=== PATIENT | male | born 1940 | race Caucasian/White ===

== ENCOUNTER 2016-06-06 11:18 | Outpatient (CLI) | payer MEDICARE, OTHER | END 2016-06-06 11:19 | disposition home or self-care (01) | DX: M50.31 Other cervical disc degeneration, high cervical region (principal); M47.812 Spondylosis without myelopathy or radiculopathy, cervical region ==

== ENCOUNTER 2016-06-19 10:47 | Outpatient (CLI) | payer MEDICARE, OTHER | END 2016-06-19 10:48 | disposition home or self-care (01) | DX: G47.33 Obstructive sleep apnea (adult) (pediatric) (principal) | CPT/HCPCS: 99214; G0463 ==

== ENCOUNTER 2016-12-21 16:26 | Outpatient (CLI) | payer MEDICARE, OTHER ==
--- NOTE | 2016-12-21 17:39 | XRAY Preliminary Report ---
Exam: XR Finger(s) RT IMPRESSION: 1. No fracture. 2. STT joint arthritis. 3. Nonspecific first digit swelling. Swelling centered at the MCP joint and carpometacarpal joint. [facility] SITE ID: [id number]
--- NOTE | 2016-12-21 17:40 | XRAY Preliminary Report ---
Exam: XR Hand 3 View RT IMPRESSION: 1. No fracture. 2. Normal alignment. 3. Right thumb swelling. STT and radiocarpal joint osteoarthritis. [facility] SITE ID: [id number]
--- NOTE | 2016-12-21 17:51 | XRAY Report ---
EXAM: RIGHT FIRST DIGIT RADIOGRAPHY EXAM DATE: 12/21/2016 04:51 p.m. CLINICAL HISTORY: Right thumb swelling. COMPARISON: None. TECHNIQUE: 3 views. FINDINGS: Bones: Normal. No fracture or bone lesion. Joints: No subluxations. Moderate STT joint space narrowing, subchondral sclerosis and osteophytosis. Mild narrowing at the radiocarpal joint. Soft Tissues: Nonspecific soft tissue swelling centered at the first carpometacarpal and first metaca rpophalangeal joint. IMPRESSION: 1. No fracture. 2. STT joint arthritis. 3. Nonspecific first digit swelling. Swelling centered at the MCP joint and carpometacarpal joint. [facility] Referring Provider Line: [phone] SITE ID: [id number]
--- NOTE | 2016-12-21 18:46 | XRAY Report ---
EXAM: RIGHT HAND RADIOGRAPHY EXAM DATE: 12/21/2016 04:51 p.m. CLINICAL HISTORY: Primary osteoarthritis with thumb swelling. COMPARISON: None. TECHNIQUE: 3 views. FINDINGS: Bones: Normal. No fractures or bone lesions. Joints: Moderate STT and mild radiocarpal joint space narrowing, subchondral sclerosis and osteophyto sis. Soft Tissues: Normal. No soft tissue swelling. IMPRESSION: 1. No fracture. 2. Normal alignment. 3. Right thumb swelling. STT and radiocarpal joint osteoarthritis. [facility] Referring Provider Line: [phone] SITE ID: [id number]
== END 2016-12-21 16:27 | disposition home or self-care (01) ==
LOC: DI 16:26
PROVIDERS: ATTEND Specialist
DX: M19.041 Primary osteoarthritis, right hand (principal); M79.89 Other specified soft tissue disorders; M19.031 Primary osteoarthritis, right wrist
CPT/HCPCS: 73140

== ENCOUNTER 2017-03-20 10:59 | Emergency (ER) | payer MEDICARE, OTHER ==
[2017-03-20] MEDS ORDERED: MAG HYDROX/AL HYDROX/SIMETH 30 ML UDC PO STA (11:48)
--- NOTE | 2017-03-20 11:52 | XRAY Preliminary Report ---
Exam: XR CHEST 1 VIEW IMPRESSION: Patchy opacity of the right lower lobe. Correlate clinically for pneumonia. [facility] SITE ID: [id number]
--- NOTE | 2017-03-20 11:55 | XRAY Report ---
EXAM: CHEST RADIOGRAPHY EXAM DATE: 03/20/2017 11:41 AM. CLINICAL HISTORY: Chest pain. COMPARISON: None. TECHNIQUE: 1 view. FINDINGS: Lungs/Pleura: There is patchy opacity of the right lower lobe. No pneumothorax or pleural effusion. Mediastinum: Cardiomegaly and sternotomy are noted. IMPRESSION: Patchy opacity of the right lower lobe. Correlate clinically for pneumonia. [facility] Referring Provider Line: [phone] SITE ID: [id number]
[2017-03-20 12:00] VITALS: BP 137/73
[2017-03-20 12:03] LABS: BILIRUBIN,URINE NEGATIVE (NEGATIVE); GLUCOSE, URINE (UA) NEGATIVE (NEGATIVE); KETONES,URINE (UA) NEGATIVE (NEGATIVE); LEUKOCYTE ESTERASE, URINE NEGATIVE (NEGATIVE); NITRITE,URINE NEGATIVE (NEGATIVE); OCCULT BLOOD,URINE TRACE-INTA (NEGATIVE); PROTEIN,URINE NEGATIVE (NEGATIVE); UROBILINOGEN,URINE 0.2 (NORMAL) E.U./dL (NORMAL)
[2017-03-20 12:04] LABS: CLARITY,URINE CLEAR (CLEAR)
[2017-03-20 12:23] LABS: BASOPHILS # (AUTO) 0.1 10^3/uL (0.0-0.1); BASOPHILS % (AUTO) 1.1 %; EOSINOPHILS # (AUTO) 0.1 10^3/uL (0.0-0.7); EOSINOPHILS % (AUTO) 1.6 %; HGB - HEMOGLOBIN 14.3 g/dL (14.0-18.0); LYMPHOCYTES # (AUTO) 0.9 10^3/uL (1.5-3.5); LYMPHOCYTES % (AUTO) 15.5 %; MEAN CORPUSCULAR HEMOGLOBIN 29.9 pg (27.0-31.0); MEAN CORPUSCULAR HGB CONC 33.8 g/dL (32.0-36.0); MEAN CORPUSCULAR VOLUME 88.5 fL (80.0-94.0); MEAN PLATELET VOLUME 8.2 fL (7.4-11.4); MONOCYTES # (AUTO) 0.5 10^3/uL (0.0-1.0); MONOCYTES % (AUTO) 7.8 %; NEUTROPHILS # (AUTO) 4.4 10^3/uL (1.5-6.6); PLT - PLATELET COUNT 132 10^3/uL (130-450); RED BLOOD COUNT 4.79 10^6/uL (4.70-6.10); RED CELL DISTRIBUTION WIDTH 15.7 % (12.0-15.0)
[2017-03-20 12:36] LABS: ALBUMIN 4.1 g/dL (3.2-5.5); ALBUMIN/GLOBULIN RATIO 1.4 (1.0-2.2); BILIRUBIN,TOTAL 0.9 mg/dL (0.2-1.0); CALCIUM 9.2 mg/dL (8.5-10.3); CREATININE 0.8 mg/dL (0.6-1.2); TOTAL PROTEIN 7.1 g/dL (6.7-8.2)
[2017-03-20] MEDS ORDERED: ASPIRIN CHEW 81 MG TABLET PO STA (12:54)
[2017-03-20] MEDS ORDERED: NITROGLYCERIN SL 0.4 MG TABLET SL STA (12:54)
--- NOTE | 2017-03-20 13:30 | ED Physician Documentation ---
PD HPI CHEST PAIN - Stated complaint Stated Complaint: LIGHTHEAD - Chief complaint Chief Complaint: Cardiac - History obtained from History obtained from: Patient, Family (Spouse) - History of Present Illness Timing - onset: How many hours ago (2) Timing - onset during: Light activity Timing - details: Waxing and waning Quality: Tightness (Slight, mostly in the right lower chest.) Location: Right chest Associated symptoms: Feeling faint / dizzy. No: Shortness of air, Diaphoresis, Nausea, Vomiting Similar symptoms before: Has not had sx before - Additional information Additional information: The patient is a 76-year-old male who reports feeling lightheaded about 2 hours prior to arrival. He had mild tightness in his chest, which he rates at about 3 out of 10 in severity at its worst, and currently about one out of 10. He denies associated shortness of breath, diaphoresis, nausea or vomiting. He reports mild cough, without fever. He reports having palpitations yesterday after drinking regular coffee. He normally drinks decaf, so attributed it to the caffeine. He denies history of similar symptoms in the past. His past medical history is significant for aortic valve replacement with bovine valve. Review of Systems Constitutional: reports: Other (transient lightheadedness). denies: Fever Ears: denies: Tinnitus/ringing Nose: denies: Congestion Throat: denies: Sore throat Cardiac: reports: Chest pain / pressure Respiratory: reports: Cough. denies: Dyspnea GI: denies: Abdominal Pain, Nausea, Vomiting : denies: Dysuria Skin: denies: Rash Musculoskeletal: denies: Back pain, Extremity swelling Neurologic: denies: Focal weakness, Numbness, Headache PD PAST MEDICAL HISTORY - Past Medical History Past Medical History: Yes Cardiovascular: High cholesterol, Valve disorder, Other Endocrine/Autoimmune: Type 2 diabetes Other Past Medical History: Heart Valve replacment - Past Surgical History Past Surgical History: Yes Cardiovascular: Valve replacement - Present Medications Home Medications: Ambulatory Orders Medication Instructions Recorded Confirmed Azithromycin [Zithromax] 250 mg PO DAILY #6 tablet 03/20/17 Finasteride 5 mg PO DAILY 03/20/17 03/20/17 Latanoprost [Xalatan] 1 drops OP DAILY 03/20/17 03/20/17 Metformin HCl 500 mg PO BID 03/20/17 03/20/17 Nystatin/Triamcin 60 gm TP DAILY 03/20/17 03/20/17 [Nystatin-Triamcinolone Ointm] Simvastatin [Zocor] 40 mg PO DAILY 03/20/17 03/20/17 Warfarin Sodium [Coumadin] 10 mg PO DAILY 03/20/17 03/20/17 Zolpidem Tartrate [Ambien] 1 - 2 tab PO DAILY PRN MDD 20 03/20/17 03/20/17 traZODone [Desyrel] 100 mg PO HS 03/20/17 03/20/17 - Allergies Allergies/Adverse Reactions: Allergies Allergy/AdvReac Type Severity Reaction Status Date / Time No Known Drug Allergies Allergy Verified 03/20/17 11:07 - Social History Does the pt smoke?: Yes Smoking Status: Former smoker Does the pt drink ETOH?: Yes ETOH Use: Wine Does the pt have substance abuse?: No - Immunizations Immunizations are current?: Yes - POLST Patient has POLST: Yes PD ED PE NORMAL - Vitals Vital signs reviewed: Yes (hypertensive) - General General: Alert and oriented X 3, Well developed/nourished - HEENT HEENT: Atraumatic, Moist mucous membranes, Pharynx benign - Neck Neck: Supple, no meningeal sign, No adenopathy, No JVD - Cardiac Cardiac: RRR, Other (1/6 systolic murmur.) - Respiratory Respiratory: No respiratory distress, Other (Faint crackles at the right base, without wheezes or rhonchi.) - Abdomen Abdomen: Soft, Non tender - Back Back: No CVA TTP - Derm Derm: No rash - Extremities Extremities: No edema, No calf tenderness / cord - Neuro Neuro: Alert and oriented X 3, No motor deficit, Normal speech Results - Vitals Vitals: Oxygen O2 Source Room air - EKG (time done) 11:16 Rate: Rate (enter#) Rhythm: NSR [place]: LAD Intervals: Prolonged NE QRS: LVH Ischemia: Q waves (inferior leads II, III, aVF, consistent with old inferior [place]. ) Compare to prior EKG: Old EKG unavailable Computer interpretation: Agree with computer - Labs Labs: Laboratory Tests 03/20/17 03/20/17 03/20/17 11:55 12:13 12:13 WBC 6.0 RBC 4.79 Hgb 14.3 Hct 42.4 MCV 88.5 MCH 29.9 MCHC 33.8 RDW 15.7 H Plt Count 132 MPV 8.2 Neut # 4.4 Lymph # 0.9 L [place] # 0.5 Eos # 0.1 Baso # 0.1 Absolute Nucleated RBC 0.00 Nucleated RBC % 0.0 D-Dimer Sodium 137 Potassium 3.8 Chloride 102 Carbon Dioxide 26 Anion Gap 9.0 BUN 14 Creatinine 0.8 Estimated GFR (MDRD) 94 Glucose 118 H Calcium 9.2 Total Bilirubin 0.9 AST 27 ALT 19 Alkaline Phosphatase 71 Troponin I Total Protein 7.1 Albumin 4.1 Globulin 3.0 Albumin/Globulin Ratio 1.4 Lipase 31 Urine Color YELLOW Urine Clarity CLEAR Urine pH 6.0 Ur Specific [place] 1.025 Urine Protein NEGATIVE Urine Glucose (UA) NEGATIVE Urine Ketones NEGATIVE Urine Occult Blood TRACE-INTA Urine Nitrite NEGATIVE Urine Bilirubin NEGATIVE Urine Urobilinogen 0.2 (NORMAL) Ur Leukocyte Esterase NEGATIVE Ur Microscopic Review NOT INDICATED Urine Culture Comments NOT INDICATED 03/20/17 03/20/17 12:13 12:13 WBC RBC Hgb Hct MCV MCH MCHC RDW Plt Count MPV Neut # Lymph # [place] # Eos # Baso # Absolute Nucleated RBC Nucleated RBC % D-Dimer 244.1 Sodium Potassium Chloride Carbon Dioxide Anion Gap BUN Creatinine Estimated GFR (MDRD) Glucose Calcium Total Bilirubin AST ALT Alkaline Phosphatase Troponin I < 0.04 Total Protein Albumin Globulin Albumin/Globulin Ratio Lipase Urine Color Urine Clarity Urine pH Ur Specific [place] Urine Protein Urine Glucose (UA) Urine Ketones Urine Occult Blood Urine Nitrite Urine Bilirubin Urine Urobilinogen Ur Leukocyte Esterase Ur Microscopic Review Urine Culture Comments - Rads (name of study) 1-view CXR Radiology: Prelim report reviewed, EMP read contemporaneously, See rad report ( Patchy opacity of the right lower lobe. Correlate clinically for pneumonia.) PD MEDICAL DECISION MAKING - ED course Complexity details: reviewed results, re-evaluated patient, considered differential, d/w patient, d/w family ED course: The patient's presentation is most consistent with right lower lobe pneumonia. His respiratory rate and pulse oximetry are normal. His presentation does not suggest sepsis. Cardiac etiology was considered, but is unlikely. His electrocardiogram does not reveal ischemic abnormalities, and his troponin level is normal. Pulmonary embolus was considered, but is unlikely with a normal d-dimer, and a therapeutic INR. Treatment in the emergency department included Maalox 30 mL orally. This did not change the patient's symptoms. Sublingual nitroglycerin and 4 baby aspirin were administered, with no change in his symptoms. Following results of the chest x-ray, Zithromax 500 mg administered orally. He is being discharged with a prescription for Zithromax. I discussed with him and his the expected course of illness, antibiotic treatment and outpatient follow-up, as well as potentially worrisome signs or symptoms that should prompt reevaluation in the emergency department. Departure - Departure Disposition: 01 Home, Self Care Clinical Impression: S/P aortic valve replacement Pneumonia Qualifiers: Pneumonia type: due to unspecified organism Laterality: right Lung location: lower lobe of lung Qualified Code(s): J18.1 - Lobar pneumonia, unspecified organism Condition: Stable Instructions: ED Pneumonia Adult Follow-Up: Jose Ng MD [Primary Care Provider] - Prescriptions: Azithromycin [Zithromax] 250 mg PO DAILY #6 tablet Comments: Take Zithromax daily as prescribed. Your normal warfarin dose in half while on the antibiotic medication. You can check your INR to fine tune your warfarin dosing. Follow up with your primary physician within 1 week. Call to schedule appointment. Return to the emergency department if you develop increasing difficulty breathing, increasing chest pain, or otherwise worsening symptoms. Discharge Date/Time: 03/20/17 13:55
[2017-03-20] MEDS ORDERED: AZITHROMYCIN 250 MG TABLET PO STA (13:32)
== END 2017-03-20 13:55 | disposition home or self-care (01) ==
LOC: ED 10:59
DX: J18.9 Pneumonia, unspecified organism (principal); R94.31 Abnormal electrocardiogram [ECG] [EKG]; E11.9 Type 2 diabetes mellitus without complications; E78.00 Pure hypercholesterolemia, unspecified; Z95.2 Presence of prosthetic heart valve; Z79.01 Long term (current) use of anticoagulants; Z79.84 Long term (current) use of oral hypoglycemic drugs; Z87.891 Personal history of nicotine dependence
CPT/HCPCS: 36415; 71010; 80053; 81003; 83690; 84484; 85025; 85379; 93005; 99283; 99284; A9270; 81001; 87086

== ENCOUNTER 2017-04-24 12:26 | Outpatient (CLI) | payer MEDICARE, OTHER ==
--- NOTE | 2017-04-24 14:11 | XRAY Report ---
DATE OF SERVICE: 04/24/2017 TWO VIEW CHEST: 04/24/2017 CLINICAL INDICATION: Pneumonia. COMPARISON: 03/20/2017. FINDINGS: Frontal and lateral views of the chest demonstrate an enlarged cardiac silhouette. Changes of previous cardiac surgery are present. Right basilar airspace disease has increased, and there is new left basilar airspace disease present. No effusion or pneumothorax is seen. IMPRESSION: BIBASILAR INFILTRATES, INCREASED FROM 03/20/2017. TD: 04/24/2017 15:11
== END 2017-04-24 12:27 | disposition home or self-care (01) ==
LOC: DI 12:26
PROVIDERS: ATTEND Family Medicine
DX: R91.8 Other nonspecific abnormal finding of lung field (principal); Z87.01 Personal history of pneumonia (recurrent)
CPT/HCPCS: 71046

== ENCOUNTER 2017-06-06 15:54 | Outpatient (CLI) | payer MEDICARE, OTHER ==
[2017-06-06] MEDS ORDERED: IOPAMIDOL-300 100 ML VIAL ONE (16:22)
[2017-06-06] MEDS ORDERED: IOPAMIDOL-300 100 ML VIAL IVP ONE (16:53)
--- NOTE | 2017-06-06 17:38 | CT Preliminary Report ---
Exam: CT CHEST W/ IMPRESSION: 1. Masslike focus of right lower lobe airspace consolidation with central cavitation concerning for m alignancy. There are 2 additional nodular areas involving the right middle and lower lobes. 2. 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 [facility] The call report notification system was initiated by Dr. Dayne Rodriguez at 17:33 hrs on 06/06/17. The above findings were discussed with Jose Ng by Dr. Dayne Rodriguez at 17:37 hrs on . SITE ID: [id number]
--- NOTE | 2017-06-06 17:51 | CT Report ---
EXAM: CT CHEST EXAM DATE: 06/06/2017 04:48 PM. CLINICAL HISTORY: Persistent cough, shortness of breath. COMPARISONS: None. TECHNIQUE: Routine helical CT imaging was performed through the chest. IV contrast: 80 mL Isovue-370. Reconstructions: Coronal and sagittal. In accordance with CT protocol optimization, one or more of the following dose reduction techniques w ere utilized for this exam: automated exposure control, adjustment of mA and/or KV based on patient s ize, or use of iterative reconstructive technique. FINDINGS: Lungs/Pleura: There is a 4.5 x 3.3 cm masslike focus of posterior right lower lobe airspace consolida tion with irregular margins. There is swirling of the surrounding parenchymal vessels as can be seen with rounded atelectasis; however, central cavitation is atypical. There is also a second nodular foc us of airspace disease medially in the right lower lobe measuring 1.7 x 2.8 cm as well as a 1.7 x 1.3 cm right middle lobe, infrahilar nodule. The left lung is clear. No pleural effusion or pneumothorax . Mediastinum: No lymphadenopathy. 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 Normal heart size. No alexia cardial effusion. There is aneurysmal dilatation of the ascending thoracic aorta to 5.1 x 5.1 cm. Bones: Unremarkable. Visualized Abdomen: Unremarkable. Other: None. IMPRESSION: 1. Masslike focus of right lower lobe airspace consolidation with central cavitation concerning for m alignancy. There are 2 additional nodular areas involving the right middle and lower lobes. 2. 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 [facility] The call report notification system was initiated by Dr. Dayne Rodriguez at 17:33 hrs on 06/06/17. The above findings were discussed with Jose Ng by Dr. Dayne Rodriguez at 17:37 hrs on . Referring Provider Line: [phone] SITE ID: [id number]
== END 2017-06-06 15:55 | disposition home or self-care (01) ==
LOC: LAB 15:54
PROVIDERS: ATTEND Family Medicine
DX: R91.8 Other nonspecific abnormal finding of lung field (principal); I71.2 Thoracic aortic aneurysm, without rupture; Q24.5 Malformation of coronary vessels
CPT/HCPCS: 36415; 71260; 82565; Q9967

== ENCOUNTER 2017-06-10 15:11 | Outpatient (CLI) | payer MEDICARE, OTHER | END 2017-06-10 15:12 | disposition home or self-care (01) | LOC: SC 15:11 | PROVIDERS: ATTEND Nurse Practitioner Family | DX: G47.33 Obstructive sleep apnea (adult) (pediatric) (principal) | CPT/HCPCS: 99214; G0463; 99212 ==

== ENCOUNTER 2017-07-30 07:03 | Outpatient (CLI) | payer MEDICARE, OTHER ==
[2017-07-30 07:33] LABS: CALCIUM 8.9 mg/dL (8.5-10.3); CREATININE 0.9 mg/dL (0.6-1.2)
--- NOTE | 2017-07-30 14:36 | CT Report ---
CT BRAIN WITH AND WITHOUT CONTRAST: 07/30/2017 CLINICAL INDICATION: Lung cancer staging. TECHNIQUE: Axial CT images of the brain were obtained prior to and following 80 mL Isovue-300 intravenously. COMPARISON: No previous CT is available for comparison. FINDINGS: The ventricles and sulci demonstrate mild symmetric enlargement, compatible with atrophy. The basilar cisterns are patent. There is no evidence of hemorrhage, mass effect, or midline shift. No abnormal enhancement is appreciated following contrast administration. The visualized orbital contents and paranasal sinuses are unremarkable. IMPRESSION: ATROPHY. NO EVIDENCE OF METASTATIC DISEASE. CT DOSE REDUCTION STATEMENT In accordance with CT protocol optimization, one or more of the following dose reduction techniques were utilized for this exam: automated exposure control, adjustment of mA and/or KV based on patient size, or use of iterative reconstructive technique. TD: 07/30/2017 14:34
[2017-07-31] MEDS ORDERED: IOPAMIDOL-300 100 ML VIAL IVP ONE (10:35)
== END 2017-07-30 07:04 | disposition home or self-care (01) ==
LOC: LAB 07:03 → DI 07:04
PROVIDERS: ATTEND Surgery
DX: C34.31 Malignant neoplasm of lower lobe, right bronchus or lung (principal)
CPT/HCPCS: 36415; 70470; 80048

== ENCOUNTER 2017-09-12 13:07 | Outpatient (CLI) | payer MEDICARE, OTHER | END 2017-09-12 13:08 | disposition home or self-care (01) | LOC: SC 13:07 | PROVIDERS: ATTEND Nurse Practitioner Family | DX: G47.33 Obstructive sleep apnea (adult) (pediatric) (principal) | CPT/HCPCS: 99214; G0463; 99212 ==

== ENCOUNTER 2017-10-01 11:42 | Outpatient (CLI) | payer MEDICARE, OTHER ==
[2017-10-01 12:30] LABS: BASOPHILS % (AUTO) 0.6 %; EOSINOPHILS # (AUTO) 0.1 10^3/uL (0.0-0.7); EOSINOPHILS % (AUTO) 1.8 %; HGB - HEMOGLOBIN 10.4 g/dL (14.0-18.0); LYMPHOCYTES # (AUTO) 1.5 10^3/uL (1.5-3.5); LYMPHOCYTES % (AUTO) 21.6 %; MEAN CORPUSCULAR HEMOGLOBIN 27.1 pg (27.0-31.0); MEAN CORPUSCULAR HGB CONC 31.9 g/dL (32.0-36.0); MEAN CORPUSCULAR VOLUME 84.9 fL (80.0-94.0); MEAN PLATELET VOLUME 7.3 fL (7.4-11.4); MONOCYTES # (AUTO) 0.7 10^3/uL (0.0-1.0); MONOCYTES % (AUTO) 9.9 %; NEUTROPHILS # (AUTO) 4.6 10^3/uL (1.5-6.6); NEUTROPHILS % (AUTO) 66.1 %; PLT - PLATELET COUNT 221 10^3/uL (130-450); RED BLOOD COUNT 3.84 10^6/uL (4.70-6.10); RED CELL DISTRIBUTION WIDTH 16.7 % (12.0-15.0)
[2017-10-01 12:38] LABS: ALBUMIN 2.9 g/dL (3.2-5.5); ALBUMIN/GLOBULIN RATIO 0.7 (1.0-2.2); BILIRUBIN,TOTAL 0.4 mg/dL (0.2-1.0); CALCIUM 8.7 mg/dL (8.5-10.3); CREATININE 0.8 mg/dL (0.6-1.2); TOTAL PROTEIN 6.9 g/dL (6.7-8.2)
== END 2017-10-01 11:43 | disposition home or self-care (01) ==
LOC: LAB 11:42
PROVIDERS: ATTEND Internal Medicine Hematology & Oncology
DX: C34.31 Malignant neoplasm of lower lobe, right bronchus or lung (principal)
CPT/HCPCS: 36415; 80053; 83735; 85025

== ENCOUNTER 2017-10-08 11:47 | Outpatient (CLI) | payer MEDICARE, OTHER ==
[2017-10-08 12:34] LABS: BASOPHILS # (AUTO) 0.1 10^3/uL (0.0-0.1); BASOPHILS % (AUTO) 1.4 %; EOSINOPHILS # (AUTO) 0.2 10^3/uL (0.0-0.7); EOSINOPHILS % (AUTO) 2.9 %; LYMPHOCYTES # (AUTO) 1.3 10^3/uL (1.5-3.5); LYMPHOCYTES % (AUTO) 24.8 %; MEAN CORPUSCULAR HGB CONC 32.9 g/dL (32.0-36.0); MEAN PLATELET VOLUME 7.3 fL (7.4-11.4); MONOCYTES # (AUTO) 0.1 10^3/uL (0.0-1.0); MONOCYTES % (AUTO) 2.7 %; NEUTROPHILS # (AUTO) 3.7 10^3/uL (1.5-6.6); NEUTROPHILS % (AUTO) 68.2 %; PLT - PLATELET COUNT 190 10^3/uL (130-450); RED BLOOD COUNT 4.07 10^6/uL (4.70-6.10); RED CELL DISTRIBUTION WIDTH 16.7 % (12.0-15.0); WHITE BLOOD COUNT 5.4 x10^3/uL (4.8-10.8)
[2017-10-08 12:47] LABS: ALBUMIN 3.2 g/dL (3.2-5.5); ALBUMIN/GLOBULIN RATIO 0.7 (1.0-2.2); BILIRUBIN,TOTAL 0.9 mg/dL (0.2-1.0); CALCIUM 8.8 mg/dL (8.5-10.3); CREATININE 0.8 mg/dL (0.6-1.2); MAGNESIUM 1.8 mg/dL (1.7-2.8); TOTAL PROTEIN 7.5 g/dL (6.7-8.2)
== END 2017-10-08 11:48 | disposition home or self-care (01) ==
LOC: LAB 11:47
PROVIDERS: ATTEND Internal Medicine Hematology & Oncology
DX: C34.31 Malignant neoplasm of lower lobe, right bronchus or lung (principal)
CPT/HCPCS: 36415; 80053; 83735; 85025

== ENCOUNTER 2017-10-15 13:03 | Outpatient (CLI) | payer MEDICARE, OTHER | END 2017-10-15 13:04 | disposition home or self-care (01) | LOC: SC 13:03 | PROVIDERS: ATTEND Nurse Practitioner Family | DX: G47.33 Obstructive sleep apnea (adult) (pediatric) (principal) | CPT/HCPCS: 99214; G0463; 99212 ==

== ENCOUNTER 2017-10-21 09:28 | Outpatient (CLI) | payer MEDICARE, OTHER ==
[2017-10-21 09:48] LABS: BASOPHILS % (AUTO) 0.2 %; EOSINOPHILS # (AUTO) 0.1 10^3/uL (0.0-0.7); EOSINOPHILS % (AUTO) 2.6 %; HGB - HEMOGLOBIN 9.6 g/dL (14.0-18.0); LYMPHOCYTES # (AUTO) 1.1 10^3/uL (1.5-3.5); LYMPHOCYTES % (AUTO) 38.6 %; MEAN CORPUSCULAR HGB CONC 32.5 g/dL (32.0-36.0); MEAN PLATELET VOLUME 6.6 fL (7.4-11.4); MONOCYTES # (AUTO) 0.6 10^3/uL (0.0-1.0); MONOCYTES % (AUTO) 20.3 %; NEUTROPHILS % (AUTO) 38.3 %; PLT - PLATELET COUNT 189 10^3/uL (130-450); RED BLOOD COUNT 3.55 10^6/uL (4.70-6.10); RED CELL DISTRIBUTION WIDTH 17.5 % (12.0-15.0); WHITE BLOOD COUNT 2.7 x10^3/uL (4.8-10.8)
[2017-10-21 09:59] LABS: ALBUMIN/GLOBULIN RATIO 0.8 (1.0-2.2); BILIRUBIN,TOTAL 0.8 mg/dL (0.2-1.0); CALCIUM 8.6 mg/dL (8.5-10.3); CREATININE 0.7 mg/dL (0.6-1.2); MAGNESIUM 1.9 mg/dL (1.7-2.8)
[2017-10-21 10:40] LABS: PLATELET ESTIMATE, MANUAL NORMAL (130-450,000) (NORMAL); PLATELET MORPHOLOGY NORMAL APPEARANCE (NORMAL)
== END 2017-10-21 09:29 | disposition home or self-care (01) ==
LOC: LAB 09:28
PROVIDERS: ATTEND Internal Medicine Hematology & Oncology
DX: C34.31 Malignant neoplasm of lower lobe, right bronchus or lung (principal)
CPT/HCPCS: 36415; 80053; 83735; 85025

== ENCOUNTER 2017-11-04 15:39 | Emergency (ER) | payer MEDICARE, OTHER ==
[2017-11-04 16:13] LABS: BASOPHILS % (AUTO) 0.1 %; EOSINOPHILS % (AUTO) 0.1 %; HGB - HEMOGLOBIN 9.3 g/dL (14.0-18.0); LYMPHOCYTES % (AUTO) 44.2 %; MEAN CORPUSCULAR HEMOGLOBIN 26.5 pg (27.0-31.0); MEAN CORPUSCULAR HGB CONC 32.7 g/dL (32.0-36.0); MEAN CORPUSCULAR VOLUME 80.9 fL (80.0-94.0); MONOCYTES % (AUTO) 15.4 %; NEUTROPHILS % (AUTO) 40.2 %; PLT - PLATELET COUNT 55 10^3/uL (130-450); RED BLOOD COUNT 3.52 10^6/uL (4.70-6.10); RED CELL DISTRIBUTION WIDTH 18.9 % (12.0-15.0); WHITE BLOOD COUNT 2.9 x10^3/uL (4.8-10.8)
[2017-11-04 16:16] LABS: ABNORMAL LYMPHS % (MANUAL) 0 %; BAND NEUTROPHILS % (MANUAL) 0 %
[2017-11-04 16:25] LABS: ALBUMIN 3.6 g/dL (3.2-5.5); ALBUMIN/GLOBULIN RATIO 0.9 (1.0-2.2); BILIRUBIN,TOTAL 0.6 mg/dL (0.2-1.0); CALCIUM 8.9 mg/dL (8.5-10.3); CREATININE 0.7 mg/dL (0.6-1.2); TOTAL PROTEIN 7.5 g/dL (6.7-8.2)
[2017-11-04 16:29] LABS: DIFFERENTIAL COMMENT MANUAL DIFFERENTIAL; LYMPHOCYTES # (MANUAL) 1.5 10^3/uL (1.5-3.5); LYMPHOCYTES % (MANUAL) 50 %; MONOCYTES # (MANUAL) 0.3 10^3/uL (0.0-1.0); NEUTROPHILS # (MANUAL) 1.1 10^3/uL (1.5-6.6); NEUTROPHILS % (MANUAL) 39 %; PLATELET ESTIMATE, MANUAL DECREASED (<130,000) (NORMAL); PLATELET MORPHOLOGY NORMAL APPEARANCE (NORMAL); RBC MORPHOLOGY (MULTIPLE) 1+ POLYCHROMASIA (NORMAL)
--- NOTE | 2017-11-04 17:48 | ED Physician Documentation ---
History of Present Illness - Stated complaint Stated Complaint: CONSTIPATED - Chief complaint Chief Complaint: Abd Pain - History obtained from History obtained from: Patient, Family - History of Present Illness Timing: How many days ago (5) Pain level max: 0 Pain level now: 0 Improved by: nothing Worsened by: nothing - Additonal information Additional information: Patient states no BM x 5 days. Has a history of chronic constipation. Has taken mag citrate, senna, and other "stool softeners". States took milk of magensia as well. No vomiting. no pain. States unable to urinate today. States this occurs frequently when he is constipated. Review of Systems Ten Systems: 10 systems reviewed and negative Constitutional: denies: Fever, Chills Ears: denies: Ear pain Nose: denies: Rhinorrhea / runny nose, Congestion Throat: denies: Sore throat Cardiac: denies: Chest pain / pressure Respiratory: denies: Cough GI: denies: Vomiting, Diarrhea, Hematemesis, Bloody / black stool : denies: Dysuria Skin: denies: Rash Musculoskeletal: denies: Neck pain, Back pain Neurologic: denies: Headache PD PAST MEDICAL HISTORY - Past Medical History Cardiovascular: High cholesterol, Valve disorder, Other Endocrine/Autoimmune: Type 2 diabetes - Past Surgical History Past Surgical History: Yes Cardiovascular: Valve replacement - Present Medications Home Medications: Ambulatory Orders Medication Instructions Recorded Confirmed Azithromycin [Zithromax] 250 mg PO DAILY #6 tablet 03/20/17 Finasteride 5 mg PO DAILY 03/20/17 03/20/17 Latanoprost [Xalatan] 1 drops OP DAILY 03/20/17 03/20/17 Metformin HCl 500 mg PO BID 03/20/17 03/20/17 Nystatin/Triamcin 60 gm TP DAILY 03/20/17 03/20/17 [Nystatin-Triamcinolone Ointm] Simvastatin [Zocor] 40 mg PO DAILY 03/20/17 03/20/17 Warfarin Sodium [Coumadin] 10 mg PO DAILY 03/20/17 03/20/17 Zolpidem Tartrate [Ambien] 1 - 2 tab PO DAILY PRN MDD 20 03/20/17 03/20/17 traZODone [Desyrel] 100 mg PO HS 03/20/17 03/20/17 methylPREDNISolone 4 mg PO 11/04/17 11/04/17 [Methylprednisolone] - Allergies Allergies/Adverse Reactions: Allergies Allergy/AdvReac Type Severity Reaction Status Date / Time No Known Drug Allergies Allergy Verified 11/04/17 15:46 - Social History Does the pt smoke?: Yes Smoking Status: Former smoker Does the pt drink ETOH?: Yes Does the pt have substance abuse?: No - Immunizations Immunizations are current?: Yes - POLST Patient has POLST: Yes PD ED PE NORMAL - Vitals Vital signs reviewed: Yes - General General: Alert and oriented X 3, No acute distress - HEENT HEENT: PERRL, Moist mucous membranes - Neck Neck: Supple, no meningeal sign - Cardiac Cardiac: RRR, Strong equal pulses - Respiratory Respiratory: No respiratory distress, Clear bilaterally - Abdomen Abdomen: Soft, Non tender, Non distended - Rectal Rectal: Other (Firm stool in rectal vault. Otherwise normal rectal exam) - Back Back: No spinal TTP - Derm Derm: Warm and dry - Extremities Extremities: No edema, No calf tenderness / cord - Neuro Neuro: Alert and oriented X 3 - Psych Psych: Normal mood, Normal affect Results - Vitals Vitals: Oxygen O2 Source Room air - Labs Labs: Microbiology 11/04/17 10:20 Urine Culture - Final Urine,Random Less Than 10,000 COLONIES/ML UROGENITAL ANNA Laboratory Tests 11/04/17 11/04/17 11/04/17 16:05 16:05 19:00 WBC 2.9 L RBC 3.52 L Hgb 9.3 L Hct 28.5 L MCV 80.9 MCH 26.5 L MCHC 32.7 RDW 18.9 H Plt Count 55 L MPV 7.0 L Neut # (Auto) Not Reportable Lymph # (Auto) Not Reportable [place] # (Auto) Not Reportable Eos # (Auto) Not Reportable Baso # (Auto) Not Reportable Absolute Nucleated RBC Not Reportable Total Counted 100 Band Neuts % (Manual) 0 Abnorm Lymph % (Manual) 0 Nucleated RBC % Not Reportable Neutrophils # (Manual) 1.1 L Lymphocytes # (Manual) 1.5 Monocytes # (Manual) 0.3 Eosinophils # (Manual) 0.0 Basophils # (Manual) 0.0 Differential Comment MANUAL DIFFERENTIAL Manual Slide Review Indicated WBC Morphology NORMAL APPEARANCE Platelet Estimate DECREASED (<130,000) Platelet Morphology NORMAL APPEARANCE RBC Morph Micro Appear 1+ POLYCHROMASIA PT INR Sodium 135 Potassium 3.9 Chloride 98 L Carbon Dioxide 28 Anion Gap 9.0 BUN 17 Creatinine 0.7 Estimated GFR (MDRD) 110 Glucose 124 H Calcium 8.9 Total Bilirubin 0.6 AST 27 ALT 22 Alkaline Phosphatase 83 Total Protein 7.5 Albumin 3.6 Globulin 3.9 Albumin/Globulin Ratio 0.9 L Lipase 43 Urine Color YELLOW Urine Clarity CLEAR Urine pH 6.5 Ur Specific [place] 1.015 Urine Protein TRACE Urine Glucose (UA) NEGATIVE Urine Ketones NEGATIVE Urine Occult Blood SMALL H Urine Nitrite NEGATIVE Urine Bilirubin NEGATIVE Urine Urobilinogen 0.2 (NORMAL) Ur Leukocyte Esterase NEGATIVE Urine RBC 6-10 H Urine WBC 0-3 Ur Squamous Epith Cells NONE SEEN Urine Bacteria None Seen Urine Mucus Moderate Strands Ur Microscopic Review INDICATED Urine Culture Comments NOT INDICATED 11/04/17 19:02 WBC RBC Hgb Hct MCV MCH MCHC RDW Plt Count MPV Neut # (Auto) Lymph # (Auto) [place] # (Auto) Eos # (Auto) Baso # (Auto) Absolute Nucleated RBC Total Counted Band Neuts % (Manual) Abnorm Lymph % (Manual) Nucleated RBC % Neutrophils # (Manual) Lymphocytes # (Manual) Monocytes # (Manual) Eosinophils # (Manual) Basophils # (Manual) Differential Comment Manual Slide Review WBC Morphology Platelet Estimate Platelet Morphology RBC Morph Micro Appear PT 28.0 H INR 2.6 H Sodium Potassium Chloride Carbon Dioxide Anion Gap BUN Creatinine Estimated GFR (MDRD) Glucose Calcium Total Bilirubin AST ALT Alkaline Phosphatase Total Protein Albumin Globulin Albumin/Globulin Ratio Lipase Urine Color Urine Clarity Urine pH Ur Specific [place] Urine Protein Urine Glucose (UA) Urine Ketones Urine Occult Blood Urine Nitrite Urine Bilirubin Urine Urobilinogen Ur Leukocyte Esterase Urine RBC Urine WBC Ur Squamous Epith Cells Urine Bacteria Urine Mucus Ur Microscopic Review Urine Culture Comments PD MEDICAL DECISION MAKING - ED course Complexity details: reviewed results, re-evaluated patient, considered differential, d/w patient, d/w family ED course: Patient is a 77-year-old male who presents to the emergency department with recurrent constipation. Now unable to urinate. Given several enemas in the emergency department, had a large bowel movement is now urinating without difficulty. We will have him follow-up with his doctor for further care. Abdomen is soft, nontender nondistended on serial exam. Patient and family counseled regarding signs and symptoms for which I believe and urgent re- evaluation would be necessary. Patient with good understanding of and agreement to plan and is comfortable going home at this time This document was made in part using voice recognition software. While efforts are made to proofread this document, sound alike and grammatical errors may occur. - Sepsis Event Vital Signs: Oxygen O2 Source Room air Departure - Departure Disposition: Home, Self Care Clinical Impression: Constipation Qualifiers: Constipation type: unspecified constipation type Qualified Code(s): K59.00 - Constipation, unspecified Condition: Good Instructions: ED Constipation Follow-Up: Jose Ng MD [Primary Care Provider] - Within 1 week Comments: Return if you worsen. Drink plenty of fluids at home. Discharge Date/Time: 11/04/17 20:48
[2017-11-04] MEDS ORDERED: MINERAL OIL ENEMA 133 ML BOTTLE RC STA (18:06)
[2017-11-04] MEDS ORDERED: SOAP SUDS ENEMA 1 EACH RC ONE (18:53)
[2017-11-04 19:20] LABS: INR 2.6 (0.8-1.2)
[2017-11-04 19:21] LABS: BILIRUBIN,URINE NEGATIVE (NEGATIVE); GLUCOSE, URINE (UA) NEGATIVE (NEGATIVE); KETONES,URINE (UA) NEGATIVE (NEGATIVE); LEUKOCYTE ESTERASE, URINE NEGATIVE (NEGATIVE); NITRITE,URINE NEGATIVE (NEGATIVE); OCCULT BLOOD,URINE SMALL (NEGATIVE); PH,URINE 6.5 PH (5.0-7.5); PROTEIN,URINE TRACE mg/dL (NEGATIVE); UROBILINOGEN,URINE 0.2 (NORMAL) E.U./dL (NORMAL)
[2017-11-04 19:23] LABS: CLARITY,URINE CLEAR (CLEAR)
[2017-11-04 19:35] LABS: BACTERIA,URINE None Seen /HPF (None Seen); MUCUS,URINE Moderate Strands; SQUAMOUS EPITHELIAL CELL,UR NONE SEEN (<= Few)
[2017-11-04] MEDS ORDERED: SALINE ENEMA 133 ML BOTTLE RC STA ×2 (19:44→20:16)
[2017-11-04 20:48] VITALS: BP 132/72
== END 2017-11-04 20:48 | disposition home or self-care (01) ==
LOC: ED 15:39
DX: K59.00 Constipation, unspecified (principal); E11.9 Type 2 diabetes mellitus without complications; Z79.84 Long term (current) use of oral hypoglycemic drugs; Z87.891 Personal history of nicotine dependence
CPT/HCPCS: 36415; 80053; 81001; 83690; 85025; 85610; 87086; 99283; 99284; A9270; 81003

== ENCOUNTER 2017-11-11 13:15 | Outpatient (CLI) | payer MEDICARE, OTHER ==
[2017-11-11 13:35] LABS: BASOPHILS % (AUTO) 0.1 %; EOSINOPHILS % (AUTO) 0.9 %; HGB - HEMOGLOBIN 8.4 g/dL (14.0-18.0); LYMPHOCYTES # (AUTO) 1.1 10^3/uL (1.5-3.5); LYMPHOCYTES % (AUTO) 35.4 %; MEAN CORPUSCULAR HEMOGLOBIN 27.1 pg (27.0-31.0); MEAN CORPUSCULAR HGB CONC 33.6 g/dL (32.0-36.0); MEAN CORPUSCULAR VOLUME 80.7 fL (80.0-94.0); MEAN PLATELET VOLUME 6.5 fL (7.4-11.4); MONOCYTES # (AUTO) 0.8 10^3/uL (0.0-1.0); MONOCYTES % (AUTO) 26.2 %; NEUTROPHILS # (AUTO) 1.2 10^3/uL (1.5-6.6); NEUTROPHILS % (AUTO) 37.4 %; PLT - PLATELET COUNT 96 10^3/uL (130-450); RED BLOOD COUNT 3.11 10^6/uL (4.70-6.10); RED CELL DISTRIBUTION WIDTH 19.2 % (12.0-15.0); WHITE BLOOD COUNT 3.1 x10^3/uL (4.8-10.8)
[2017-11-11 13:46] LABS: ALBUMIN 3.2 g/dL (3.2-5.5); ALBUMIN/GLOBULIN RATIO 0.8 (1.0-2.2); BILIRUBIN,TOTAL 0.5 mg/dL (0.2-1.0); CALCIUM 8.6 mg/dL (8.5-10.3); CREATININE 0.9 mg/dL (0.6-1.2)
== END 2017-11-11 13:16 | disposition home or self-care (01) ==
LOC: LAB 13:15
PROVIDERS: ATTEND Internal Medicine Hematology & Oncology
DX: C34.31 Malignant neoplasm of lower lobe, right bronchus or lung (principal)
CPT/HCPCS: 36415; 80053; 85025

== ENCOUNTER 2017-12-02 12:48 | Outpatient (CLI) | payer MEDICARE, OTHER ==
[2017-12-02 13:15] LABS: ALBUMIN 3.4 g/dL (3.2-5.5); ALBUMIN/GLOBULIN RATIO 0.9 (1.0-2.2); BILIRUBIN,TOTAL 0.4 mg/dL (0.2-1.0); CALCIUM 8.8 mg/dL (8.5-10.3); CREATININE 0.8 mg/dL (0.6-1.2); MAGNESIUM 1.7 mg/dL (1.7-2.8)
[2017-12-02 13:20] LABS: BASOPHILS % (AUTO) 0.2 %; EOSINOPHILS % (AUTO) 0.8 %; HGB - HEMOGLOBIN 8.7 g/dL (14.0-18.0); LYMPHOCYTES # (AUTO) 0.9 10^3/uL (1.5-3.5); LYMPHOCYTES % (AUTO) 29.6 %; MEAN CORPUSCULAR HEMOGLOBIN 28.4 pg (27.0-31.0); MEAN CORPUSCULAR HGB CONC 33.7 g/dL (32.0-36.0); MEAN CORPUSCULAR VOLUME 84.3 fL (80.0-94.0); MONOCYTES # (AUTO) 0.6 10^3/uL (0.0-1.0); MONOCYTES % (AUTO) 18.8 %; NEUTROPHILS # (AUTO) 1.6 10^3/uL (1.5-6.6); NEUTROPHILS % (AUTO) 50.6 %; PLT - PLATELET COUNT 85 10^3/uL (130-450); RED BLOOD COUNT 3.06 10^6/uL (4.70-6.10); RED CELL DISTRIBUTION WIDTH 22.9 % (12.0-15.0); WHITE BLOOD COUNT 3.2 x10^3/uL (4.8-10.8)
[2017-12-02 13:44] LABS: PLATELET ESTIMATE, MANUAL DECREASED (<130,000) (NORMAL); PLATELET MORPHOLOGY NORMAL APPEARANCE (NORMAL)
== END 2017-12-02 12:49 | disposition home or self-care (01) ==
LOC: LAB 12:48
PROVIDERS: ATTEND Internal Medicine Hematology & Oncology
DX: C34.31 Malignant neoplasm of lower lobe, right bronchus or lung (principal)
CPT/HCPCS: 36415; 80053; 83735; 85025

== ENCOUNTER 2018-01-27 08:15 | Outpatient (CLI) | payer MEDICARE, OTHER ==
[2018-01-27 08:39] LABS: BASOPHILS % (AUTO) 0.7 %; EOSINOPHILS # (AUTO) 0.1 10^3/uL (0.0-0.7); EOSINOPHILS % (AUTO) 1.8 %; HGB - HEMOGLOBIN 10.1 g/dL (14.0-18.0); LYMPHOCYTES # (AUTO) 1.1 10^3/uL (1.5-3.5); LYMPHOCYTES % (AUTO) 23.2 %; MEAN CORPUSCULAR HEMOGLOBIN 29.9 pg (27.0-31.0); MEAN CORPUSCULAR HGB CONC 33.2 g/dL (32.0-36.0); MEAN CORPUSCULAR VOLUME 89.9 fL (80.0-94.0); MEAN PLATELET VOLUME 6.7 fL (7.4-11.4); MONOCYTES # (AUTO) 0.5 10^3/uL (0.0-1.0); MONOCYTES % (AUTO) 9.8 %; NEUTROPHILS # (AUTO) 3.2 10^3/uL (1.5-6.6); NEUTROPHILS % (AUTO) 64.5 %; PLT - PLATELET COUNT 138 10^3/uL (130-450); RED BLOOD COUNT 3.37 10^6/uL (4.70-6.10); RED CELL DISTRIBUTION WIDTH 19.2 % (12.0-15.0); WHITE BLOOD COUNT 4.9 x10^3/uL (4.8-10.8)
[2018-01-27 08:51] LABS: ALBUMIN 3.3 g/dL (3.2-5.5); ALBUMIN/GLOBULIN RATIO 0.8 (1.0-2.2); BILIRUBIN,TOTAL 0.5 mg/dL (0.2-1.0); CALCIUM 8.9 mg/dL (8.5-10.3); CREATININE 0.7 mg/dL (0.6-1.2); TOTAL PROTEIN 7.3 g/dL (6.7-8.2)
== END 2018-01-27 08:16 | disposition home or self-care (01) ==
LOC: LAB 08:15
PROVIDERS: ATTEND Internal Medicine Hematology & Oncology
DX: C34.31 Malignant neoplasm of lower lobe, right bronchus or lung (principal); K12.31 Oral mucositis (ulcerative) due to antineoplastic therapy; D61.810 Antineoplastic chemotherapy induced pancytopenia; L98.9 Disorder of the skin and subcutaneous tissue, unspecified
CPT/HCPCS: 36415; 80053; 85025

== ENCOUNTER 2018-06-03 19:56 | Outpatient (CLI) | payer MEDICARE, OTHER ==
--- NOTE | 2018-06-03 23:22 | Ultrasound Report ---
Reason: LOCALIZED ENLARGED LYMPH NODES,R SUBMENDIBULUR Procedure Date: 06/03/2018 Accession Number: [id number] / [id number] Procedure: US - Head or Neck Soft Tissue CPT Code: FULL RESULT: EXAM: NECK ULTRASOUND EXAM DATE: 06/03/2018 08:51 PM. CLINICAL HISTORY: LOCALIZED ENLARGED LYMPH NODES,R SUBMENDIBULUR. COMPARISON: HEAD W/WO 07/30/2017 7:46 AM. TECHNIQUE: Real-time sonographic imaging was performed by the steel pourer utilizing color-flow. Multiple customer care representative static images were saved for review. FINDINGS: The right submandibular gland appears unremarkable. Superficial to the right submandibular gland, there is a 1.1 x 0.7 x 0.5 cm circumscribed hypoechoic avascular nodule, correlating with the palpable abnormality. This likely represents a sebaceous cyst, as it abuts the dermis. At the site of palpable abnormality identified by the patient anterior to the right ear, the right parotid gland appears unremarkable. There are two 3 mm hypoechoic foci within the parotid parenchyma, compatible with tiny intraparotid lymph nodes. IMPRESSION: Palpable abnormality in the right submandibular region correlates with a likely sebaceous cyst, measuring 1.1 cm. No evident correlate to the palpable abnormality identified in the right parotid gland. Incidental tiny right intraparotid lymph nodes. [facility]
== END 2018-06-03 19:57 | disposition home or self-care (01) ==
LOC: DI 19:56
PROVIDERS: ATTEND Family Medicine
DX: R22.0 Localized swelling, mass and lump, head (principal)
CPT/HCPCS: 76536

== ENCOUNTER 2018-09-22 11:18 | Outpatient (CLI) | payer MEDICARE, OTHER | END 2018-09-22 11:19 | disposition home or self-care (01) | LOC: SC 11:18 | PROVIDERS: ATTEND Nurse Practitioner Family | DX: G47.33 Obstructive sleep apnea (adult) (pediatric) (principal) | CPT/HCPCS: 99213; G0463; 99212 ==

== ENCOUNTER 2019-10-07 11:12 | Outpatient (CLI) | payer MEDICARE, OTHER ==
--- NOTE | 2019-10-07 12:06 | SLEEP CARE CONSULTATION ---
Information from patient questionnaire entered by Ellie Perea. I have reviewed and concur with the information entered by Ellie Perea. This document represents the service I personally performed and the decisions made by me, Teresa Motley, RN, MSN, [employer]. History of Present Illness Service Date and Time: 10/07/2019 1112 Previous diagnosis: Severe, Obstructive Sleep Apnea-Hypopnea Syndrome AHI: 58.1 (in 2012) Reason for follow up: annual (last seen 2019) Equipment type: CPAP Equipment obtained from: [employer] (getting supplies as needed) Mask style: Full face Backup mask available: Yes (old mask ) Last cushion change: 2 weeks ago Prior sleep studies: Yes Year and Where: 2013 - [facility] Type of Sleep Study: Polysomnography CPAP Compliance Data - Data Reviewed with Patient Average duration of nightly device use: 9.75 Compliance rate %: 94 (180 days) Current pressure setting (cmH2O): 8-10 Humidity settin Average residual AHI: 4.2 Subjective Patient concerns: denies: aerophagia, mask discomfort, air blowing in eyes, mask leak noise, condensation in mask/hose, nasal congestion, dry mouth, nose, throat, epistaxis, other Observed to snore while using device: No Current pressure setting perceived as: comfortable On therapy, patient: reports: sleeping better, awakening more refreshed, being more awake and alert during the day, more rested overall. denies: drowsiness while driving Initial [place] Sleepiness Scale score: 3 (in 2012) Current [place] Sleepiness Scale score: 0 Allergies and Home Medications Known drug allergies: No Home medication list reviewed: No (no changes ) Review of Systems Review of systems same as previous: Yes Physical Exam Blood Pressure: 118/60 Cuff size: regular Heart Rate: 62 O2 Saturation: 98 Height: 6 ft Weight: 236 lb Body Mass Index: 32.0 BMI Classification: Obese Impression and Plan 1. Obstructive Sleep Apnea-Hypopnea Syndrome, severe, with good treatment compliance and good apnea control. On CPAP therapy, the patient has better sleep quality and is more rested overall. Patients time with CPAP is similar to last year of 9.5 hours. He states he rests in bed about an hour in the morning to wait til spouse awakens so not to disturb her sleep. He was advised that if he notices he requires more sleep to follow up for further evaluation with rationale. Currently patients BMI is 32 obesity class . Obesity increases the risk of apnea, CPAP pressure requirements and overall health risks especially cardiovascular and diabetes. Thus patient is advised to lose weight. The patient's CPAP pressure range should accommodate some weight loss. Symptoms to report for additional pressure adjustment discussed. Patient's apnea severity and rationale for treatment to reduce apnea, improve sleep quality and reduce cardiovascular and cerebrovascular events was reviewed. * Continue auto CPAP pressure at 8-10 cmH2O * Notify me if snoring with mask or feeling that the pressure is too much or too little * Attempt to lose weight * Call this office if any problems using CPAP * Return for follow up in 1 year , or sooner if concerns arise Visit Type: In Office Time Spent with Patient (minutes): 20 Provider Statement: I spent 100% of the Face to Face Visit with the patient with greater than 50% spent counseling the patient and coordination of care.
[2019-10-07 12:07] VITALS: BP 118/60
== END 2019-10-07 11:13 | disposition home or self-care (01) ==
LOC: SC 11:12
PROVIDERS: ATTEND Nurse Practitioner Family
DX: G47.33 Obstructive sleep apnea (adult) (pediatric) (principal); E66.9 Obesity, unspecified; Z68.32 Body mass index [BMI] 32.0-32.9, adult
CPT/HCPCS: 99213; G0463; 99212

== ENCOUNTER 2019-12-11 08:59 | Outpatient (CLI) | payer MEDICARE, OTHER ==
[2019-12-11 09:15] LABS: CREATININE 0.8 mg/dL (0.6-1.2)
== END 2019-12-11 09:00 | disposition home or self-care (01) ==
LOC: LAB 08:59
PROVIDERS: ATTEND Internal Medicine Hematology & Oncology
DX: Z85.118 Personal history of other malignant neoplasm of bronchus and lung (principal)
CPT/HCPCS: 36415; 82565

== ENCOUNTER 2020-03-07 10:10 | Emergency (ER) | payer MEDICARE, OTHER ==
--- NOTE | 2020-03-07 10:41 | ED Physician Documentation ---
PD HPI CHEST PAIN - Stated complaint Stated Complaint: SOA/CHEST PX - Chief complaint Chief Complaint: Cardiac - History obtained from History obtained from: Patient - Additional information Additional information: 79-year-old gentleman with history of lung cancer status post right lobectomy, [place] aortic valve on warfarin, checks his own INR is at home, type 2 diabetes on metformin. He had recent Mohs surgery on the left hand. Subsequently got infected and about 6 days ago went to [facility] and was put on Keflex, 500 mg 4 times a day. Since then he has had progressive sharp left-sided chest pain, mild, nonexertional. Rates his as a 1 or a 2. The thing that is most worrisome to him is that he has had progressive shortness of breath with feeling like a rattling in the left lower lung. Mild cough. No fevers. Denies pedal edema or calf pain. Review of Systems Ten Systems: 10 systems reviewed and negative Constitutional: denies: Fever, Fatigue Throat: denies: Dental pain / toothache, Sore throat Cardiac: reports: Chest pain / pressure. denies: Palpitations, Pedal edema, Calf pain Respiratory: reports: Dyspnea, Cough. denies: Hemoptysis, Wheezing PD PAST MEDICAL HISTORY - Past Medical History Cardiovascular: High cholesterol, Valve disorder, Other Endocrine/Autoimmune: Type 2 diabetes - Past Surgical History Past Surgical History: Yes Cardiovascular: Valve replacement - Present Medications Home Medications: Ambulatory Orders Medication Instructions Recorded Confirmed Azithromycin [Zithromax] 250 mg PO DAILY #6 tablet 03/20/17 Finasteride 5 mg PO DAILY 03/20/17 03/20/17 Latanoprost [Xalatan] 1 drops OP DAILY 03/20/17 03/20/17 Metformin HCl 500 mg PO BID 03/20/17 03/20/17 Nystatin/Triamcin 60 gm TP DAILY 03/20/17 03/20/17 [Nystatin-Triamcinolone Ointm] Simvastatin [Zocor] 40 mg PO DAILY 03/20/17 03/20/17 Warfarin Sodium [Coumadin] 10 mg PO DAILY 03/20/17 03/20/17 Zolpidem Tartrate [Ambien] 1 - 2 tab PO DAILY PRN MDD 20 03/20/17 03/20/17 traZODone [Desyrel] 100 mg PO HS 03/20/17 03/20/17 methylPREDNISolone 4 mg PO 11/04/17 11/04/17 [Methylprednisolone] Amoxicillin 1,000 mg PO TID #60 capsule 03/07/20 Azithromycin [Zithromax] 1 tab PO DAILY #6 tablet 03/07/20 - Allergies Allergies/Adverse Reactions: Allergies Allergy/AdvReac Type Severity Reaction Status Date / Time No Known Drug Allergies Allergy Verified 03/07/20 10:23 - Social History Does the pt smoke?: Yes Smoking Status: Former smoker Does the pt drink ETOH?: Yes Does the pt have substance abuse?: No - Immunizations Immunizations are current?: Yes - POLST Patient has POLST: Yes PD ED PE NORMAL - Vitals Vital signs reviewed: Yes - General General: Alert and oriented X 3, No acute distress - HEENT HEENT: PERRL, EOMI - Neck Neck: Supple, no meningeal sign, No bony TTP - Cardiac Cardiac: RRR, Other (Loud metallic S2) - Respiratory Respiratory: No respiratory distress, Clear bilaterally - Abdomen Abdomen: Non tender - Back Back: No CVA TTP, No spinal TTP - Derm Derm: Normal color, Warm and dry - Extremities Extremities: No edema, No calf tenderness / cord - Neuro Neuro: Alert and oriented X 3, Normal speech Results - Vitals Vitals: Vital Signs - 24 hr 03/07/20 03/07/20 03/07/20 10:18 12:22 14:15 Temperature 36.0 C L 37.1 C 37.0 C Heart Rate 76 71 72 Respiratory 15 19 18 Rate Blood Pressure 133/63 H 128/72 129/68 O2 Saturation 96 97 99 Oxygen O2 Source Room air - Labs Labs: Laboratory Tests 03/07/20 03/07/20 03/07/20 10:51 10:51 10:57 WBC RBC Hgb Hct MCV MCH MCHC RDW Plt Count MPV Neut # (Auto) Lymph # (Auto) Ford # (Auto) Eos # (Auto) Baso # (Auto) Absolute Nucleated RBC Nucleated RBC % PT 38.6 H INR 3.7 H Sodium 138 Potassium 4.3 Chloride 102 Carbon Dioxide 25 Anion Gap 11.0 BUN 15 Creatinine 0.9 Estimated GFR (MDRD) 82 L Glucose 135 H Calcium 8.8 Total Bilirubin 0.9 AST 68 H ALT 88 H Alkaline Phosphatase 108 Troponin I High Sens 6.2 B-Natriuretic Peptide Total Protein 7.0 Albumin 3.1 L Globulin 3.9 Albumin/Globulin Ratio 0.8 L Lipase 27 Nasal Adenovirus (PCR) Nasal B. parapertussis DNA (PCR) Nasal Coronavir 229E PCR Nasal Coronavir HKU1 PCR Nasal Coronavir NL63 PCR Nasal Coronavir OC43 PCR Nasal Enterovir/Rhinovir PCR Nasal Influenza B PCR Nasal Influenza A PCR Nasal Parainfluen 1 PCR Nasal Parainfluen 2 PCR Nasal Parainfluen 3 PCR Nasal Parainfluen 4 PCR Nasal RSV (PCR) Nasal B.pertussis DNA PCR Nasal C.pneumoniae (PCR) Dre Human Metapneumo PCR Nasal M.pneumoniae (PCR) Nasal SARS-CoV-2 (PCR) 03/07/20 03/07/20 03/07/20 10:57 13:26 13:48 WBC 6.1 RBC 3.70 L Hgb 10.9 L Hct 34.0 L MCV 91.9 MCH 29.5 MCHC 32.1 RDW 15.5 H Plt Count 159 MPV 9.4 Neut # (Auto) 4.5 Lymph # (Auto) 0.7 L Ford # (Auto) 0.8 Eos # (Auto) 0.1 Baso # (Auto) 0.0 Absolute Nucleated RBC 0.00 Nucleated RBC % 0.0 PT INR Sodium Potassium Chloride Carbon Dioxide Anion Gap BUN Creatinine Estimated GFR (MDRD) Glucose Calcium Total Bilirubin AST ALT Alkaline Phosphatase Troponin I High Sens B-Natriuretic Peptide 179 H Total Protein Albumin Globulin Albumin/Globulin Ratio Lipase Nasal Adenovirus (PCR) NOT DETECTED Nasal B. parapertussis DNA (PCR) NOT DETECTED Nasal Coronavir 229E PCR NOT DETECTED Nasal Coronavir HKU1 PCR NOT DETECTED Nasal Coronavir NL63 PCR NOT DETECTED Nasal Coronavir OC43 PCR NOT DETECTED Nasal Enterovir/Rhinovir PCR NOT DETECTED Nasal Influenza B PCR NOT DETECTED Nasal Influenza A PCR NOT DETECTED Nasal Parainfluen 1 PCR NOT DETECTED Nasal Parainfluen 2 PCR NOT DETECTED Nasal Parainfluen 3 PCR NOT DETECTED Nasal Parainfluen 4 PCR NOT DETECTED Nasal RSV (PCR) NOT DETECTED Nasal B.pertussis DNA PCR NOT DETECTED Nasal C.pneumoniae (PCR) NOT DETECTED Dre Human Metapneumo PCR NOT DETECTED Nasal M.pneumoniae (PCR) NOT DETECTED Nasal SARS-CoV-2 (PCR) NOT DETECTED - Rads (name of study) 1v chest Radiology: EMP read contemporaneously (Bilateral small pleural effusions and congestive changes. Potential left lower lobe infiltrate.) CT of the chest with IV contrast Radiology: EMP read contemporaneously (Postsurgical changes right lung base. Hazy groundglass opacity left lingula concerning for atypical pneumonia versus pneumonitis. Masslike consolidation could be pneumonia, or tumor not excluded, needs follow-up. Concern for pulmonary fibrosis and cardiomegaly with a sending aortic aneurysm) PD MEDICAL DECISION MAKING - ED course ED course: 79-year-old gentleman presents with shortness of breath and feeling like something is wrong with his left lung. He has a history of aortic valve replacement and right lobectomy for lung cancer. His x-ray was concerning for CHF, but this was not consistent with history and physical, and his BNP was at most modestly elevated. 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 And chest CT demonstrating what most likely represents pneumonia of the left lower lobe. Biofire panel was negative (incl neg C-19). Departure - Departure Disposition: 01 Home, Self Care Clinical Impression: Heart valve disease Pneumonia Qualifiers: Pneumonia type: due to unspecified organism Laterality: left Lung location: lower lobe of lung Qualified Code(s): J18.9 - Pneumonia, unspecified organism Condition: Good Record reviewed to determine appropriate education?: Yes Instructions: Pneumonia Dc Prescriptions: Amoxicillin 1,000 mg PO TID #60 capsule Azithromycin [Zithromax] 1 tab PO DAILY #6 tablet Comments: You were seen today for shortness of breath, although the chest x-ray did not demonstrate a pneumonia, the follow-up chest CT did. The radiologist noted that another possibility was a tumor, I think this is unlikely, but you will need follow-up chest CT with your doctor to make sure that everything is cleared up. Coronavirus testing was negative. We did note that your a sending aorta is 5.1 cm. You should follow-up with your income tax administrator for this, they may want to do another open heart surgery at some point, but there is no urgency to that. Return if worsening. You can stop the cephalexin that you are on for the hand infection. Your INR today is high at 3.6. This will likely go higher while on antibiotics. It is likely would need to skip doses of your warfarin. You have the machine at home that you can check it with, on any day that it is higher than 3 you should skip your dose including today. Discharge Date/Time: 03/07/20 15:20
--- NOTE | 2020-03-07 10:44 | XRAY Report ---
PROCEDURE: Chest 1 View X-Ray INDICATIONS: Chest pain TECHNIQUE: One view of the chest was acquired. COMPARISON: 06/06/2017 FINDINGS: Surgical changes and devices: Median sternotomy wires are seen.. Lungs and pleura: Small bilateral pleural effusion is seen with blunting of bilateral costophrenic an gles. Ill-defined airspace opacity in left lower lung field is noted concerning for left lower lobe i nfiltrate/atelectasis. No gross pneumothorax. Pulmonary vascular congestion is seen. Mediastinum: Mediastinal contours appear normal. Heart size is enlarged. Bones and chest wall: No suspicious bony lesions. Overlying soft tissues appear unremarkable. IMPRESSION: Congestive changes and small bilateral pleural effusion. Cannot rule out underlying left lower lobe i nfiltrate. No gross pneumothorax. Reviewed by: Fabio Trent MD on 03/07/2020 10:42 AM [facility] Approved by: Fabio Trent MD on 03/07/2020 10:42 AM PST Station ID: [id number]
[2020-03-07 11:31] LABS: ALBUMIN 3.1 g/dL (3.2-5.5); ALBUMIN/GLOBULIN RATIO 0.8 (1.0-2.2); BILIRUBIN,TOTAL 0.9 mg/dL (0.2-1.0); CALCIUM 8.8 mg/dL (8.5-10.3); CREATININE 0.9 mg/dL (0.6-1.2)
[2020-03-07 11:37] LABS: INR 3.7 (0.8-1.2); PT - PROTHROMBIN TIME 38.6 secs (9.9-12.6)
[2020-03-07] MEDS ORDERED: IOVERSOL 320 100 ML VIAL IVP ONE ×2 (12:30→15:17)
--- NOTE | 2020-03-07 13:02 | CT Report ---
PROCEDURE: CHEST W INDICATIONS: chest pain, dyspnea, H/O Lung CA CONTRAST: IV CONTRAST: Optiray 320 ml: 100 PO CONTRAST: *NO PO CONTRAST TECHNIQUE: After the administration of intravenous contrast, 5 mm thick sections acquired from the pulmonary api xavi to the posterior costophrenic angles. 7 mm thick coronal MIP reformats were acquired. For radia tion dose reduction, the following was used: automated exposure control, adjustment of mA and/or kV according to patient size. COMPARISON: Chest radiograph on the same day. Prior chest CT dated 06/06/2017. FINDINGS: Image quality: Excellent. Lungs and pleura: Compared to previous study, there is suggestion of interval right lower lobectomy w ith resection of previously seen right lower lobe pulmonary lesions. Linear scarring/atelectasis at r ight lung base is seen. Surgical sutures are also noted. There is small to moderate right pleural eff usion and small left pleural effusion. Ill-defined hazy groundglass opacity in posterior aspect of le ft lingular segment and left lower lobe is seen. Masslike consolidation in posterior medial left lowe r lobe extending to left infrahilar region is noted. No gross pneumothorax. Reticular thickening in p eriphery of bilateral lung ramos are seen suggestive of developing interstitial prominent fibrosis. Central and peripheral airways are patent and normal in caliber. Mediastinum: Heart size is enlarged. No pericardial effusion. Median sternotomy wires are noted. N o mediastinal or hilar adenopathy by size criteria. Subcentimeter lymph nodes are seen scattered in m ediastinum. Moderate atherosclerotic calcifications are seen. Ascending thoracic aortic aneurysm gilson ures up to 5 cm in largest AP diameter is seen. The central pulmonary arteries are normal in size. Fl uid distended esophageal lumen is noted. No gross esophageal wall thickening. No hiatal hernia. Bones and chest wall: No suspicious bony lesions. No vertebral body compression fractures. No axil nancy or supraclavicular adenopathy by size criteria. Thyroid gland is within normal limits. Abdomen: Visualized upper abdominal solid organs appear normal. Upper abdominal bowel loops are nor mal in caliber. IMPRESSION: 1. Postsurgical changes at right lung base from resection of previously noted right lower lobe masses . Right greater than left bilateral pleural effusion. No pneumothorax. 2. Hazy groundglass opacity in posterior aspect of left lingular segment and left lower lobe concerni ng for atypical pneumonia versus pneumonitis. Additional masslike consolidation also seen in posterio r medial aspect of left lower lobe extending to left infrahilar region. Finding could represent pneum onic infiltrate. Tumor mass cannot be excluded given patient's history. Follow-up until resolution is recommended. 3. Increased interstitial reticular thickening in peripheral bilateral lung ramos concerning for dev eloping interstitial pulmonary fibrosis. 4. Cardiomegaly. Ascending thoracic aortic aneurysm measures up to 5 cm in largest AP diameter. No ao rtic dissection. 5. No mediastinal or hilar lymphadenopathy by size criteria. Reviewed by: Fabio Trent MD on 03/07/2020 1:00 PM PST Approved by: Fabio Trent MD on 03/07/2020 1:00 PM PST Station ID: [id number]
[2020-03-07 13:35] LABS: BASOPHILS % (AUTO) 0.3 %; EOSINOPHILS # (AUTO) 0.1 10^3/uL (0.0-0.7); EOSINOPHILS % (AUTO) 1.6 %; HGB - HEMOGLOBIN 10.9 g/dL (14.0-18.0); LYMPHOCYTES # (AUTO) 0.7 10^3/uL (1.5-3.5); LYMPHOCYTES % (AUTO) 11.9 %; MEAN CORPUSCULAR HEMOGLOBIN 29.5 pg (27.0-31.0); MEAN CORPUSCULAR HGB CONC 32.1 g/dL (32.0-36.0); MEAN CORPUSCULAR VOLUME 91.9 fL (80.0-94.0); MEAN PLATELET VOLUME 9.4 fL (7.4-11.4); MONOCYTES # (AUTO) 0.8 10^3/uL (0.0-1.0); MONOCYTES % (AUTO) 12.6 %; NEUTROPHILS # (AUTO) 4.5 10^3/uL (1.5-6.6); NEUTROPHILS % (AUTO) 73.1 %; PLT - PLATELET COUNT 159 10^3/uL (130-450); RED CELL DISTRIBUTION WIDTH 15.5 % (12.0-15.0); WHITE BLOOD COUNT 6.1 x10^3/uL (4.8-10.8)
[2020-03-07 14:15] VITALS: BP 129/68
[2020-03-07 14:49] LABS: C. PNEUMONIAE- RESP PCR PANEL NOT DETECTED
== END 2020-03-07 15:20 | disposition home or self-care (01) ==
LOC: ED 10:10
DX: J18.9 Pneumonia, unspecified organism (principal); Z85.118 Personal history of other malignant neoplasm of bronchus and lung; Z79.01 Long term (current) use of anticoagulants; E11.9 Type 2 diabetes mellitus without complications; Z79.84 Long term (current) use of oral hypoglycemic drugs; Z95.2 Presence of prosthetic heart valve; Z87.891 Personal history of nicotine dependence; Z90.2 Acquired absence of lung [part of]; Z20.828 Contact with and (suspected) exposure to other viral communicable diseases; I25.2 Old myocardial infarction
CPT/HCPCS: 36415; 71045; 71260; 80053; 83690; 83880; 84484; 85025; 85610; 87631; 93005; 93306; 99284; Q9967; 0202U

== ENCOUNTER 2020-06-06 14:32 | Emergency (ER) | payer MEDICARE, OTHER ==
--- NOTE | 2020-06-06 14:48 | ED Physician Documentation ---
PD HPI DYSPNEA - Stated complaint Stated Complaint: SOA - Chief complaint Chief Complaint: Resp - History obtained from History obtained from: Patient - History of Present Illness Timing - onset: How many weeks ago (1) Timing - onset during: Light activity Timing - duration: Weeks (1) Timing - details: Gradual onset, Still present (worse most the past couple of days.) Inciting event(s): URI (has had fevers, chills, productive cough for past week.) Improved by: Rest. No: Inhaler/neb (tried his 's inhaler/nebulizer at home.) Associated symptoms: Fever, Cough, Wheezing, Chest pain / discomfort. No: Hemoptysis, Palpitations, Bilateral edema Similar symptoms before: Diagnosis (he says the dyspnea is similar to when he had CHF prior to AVR about 10 years ago.) Recently seen: Emergency Dept (3 months ago in ER with some dyspnea and had CXR and chest CT showing some ground glass areas c/w pneumonia, Chest aortic aneurysm 5 cm, and consolidation left base.) Review of Systems Constitutional: reports: Fever, Chills Nose: denies: Rhinorrhea / runny nose, Congestion Throat: denies: Sore throat Cardiac: reports: Chest pain / pressure (tightness). denies: Palpitations, Pedal edema, Calf pain Respiratory: reports: Dyspnea, Cough. denies: Hemoptysis, Wheezing GI: denies: Nausea, Vomiting, Diarrhea, Bloody / black stool Neurologic: reports: Generalized weakness. denies: Near syncope Immunocompromised: denies: Immunocompromised PD PAST MEDICAL HISTORY - Past Medical History Cardiovascular: High cholesterol, Valve disorder, Other Endocrine/Autoimmune: Type 2 diabetes - Past Surgical History Past Surgical History: Yes Cardiovascular: Valve replacement - Present Medications Home Medications: Ambulatory Orders Medication Instructions Recorded Confirmed Finasteride 5 mg PO DAILY 03/20/17 06/06/20 Latanoprost [Xalatan] 1 drops OP DAILY 03/20/17 06/06/20 Metformin HCl 500 mg PO BID 03/20/17 06/06/20 Nystatin/Triamcin 60 gm TP DAILY 03/20/17 06/06/20 [Nystatin-Triamcinolone Ointm] Simvastatin [Zocor] 40 mg PO DAILY 03/20/17 06/06/20 Warfarin Sodium [Coumadin] 10 mg PO DAILY 03/20/17 06/06/20 Zolpidem Tartrate [Ambien] 1 - 2 tab PO DAILY PRN MDD 20 03/20/17 06/06/20 traZODone [Desyrel] 100 mg PO HS 03/20/17 06/06/20 methylPREDNISolone 4 mg PO DAILY 11/04/17 06/06/20 [Methylprednisolone] Albuterol Sulf [Ventolin Hfa 2 - 3 puffs INH Q4HR PRN #1 inhaler 06/06/20 Inhaler] cefUROXime axetiL [Ceftin] 500 mg PO BID #14 tablet 06/06/20 dexAMETHasone [Decadron] 4 mg PO DAILY #5 tablet 06/06/20 - Allergies Allergies/Adverse Reactions: Allergies Allergy/AdvReac Type Severity Reaction Status Date / Time No Known Drug Allergies Allergy Verified 06/06/20 14:43 - Social History Does the pt smoke?: Yes Smoking Status: Former smoker Does the pt drink ETOH?: Yes Does the pt have substance abuse?: No - Immunizations Immunizations are current?: Yes - POLST Patient has POLST: Yes PD ED PE NORMAL - Vitals Vital signs reviewed: Yes - General General: Alert and oriented X 3, No acute distress (seems okay at rest. Sats are good. HR is under 100 but irregular. ), Well developed/nourished - HEENT HEENT: Pharynx benign - Neck Neck: Supple, no meningeal sign, No adenopathy - Cardiac Cardiac: Other (mechanical valvular heart murmur, mild). No: RRR (irregular but rate 70-80) - Respiratory Respiratory: Other (some mild exp wheezing. No faint crackles. some coarse crackles left base. ) - Abdomen Abdomen: Soft, Non tender - Derm Derm: Normal color, Warm and dry - Extremities Extremities: Normal ROM s pain, No edema, No calf tenderness / cord - Neuro Neuro: Alert and oriented X 3, No motor deficit, Normal speech Results - Vitals Vitals: Vital Signs - 24 hr 06/06/20 06/06/20 06/06/20 14:36 15:00 15:30 Temperature 36 C L Heart Rate 71 84 82 Respiratory 22 30 H 30 H Rate Blood Pressure 143/83 H 115/75 106/68 O2 Saturation 95 96 99 06/06/20 06/06/20 06/06/20 15:43 16:09 16:30 Temperature Heart Rate 85 85 84 Respiratory 13 20 26 H Rate Blood Pressure 101/66 103/56 L O2 Saturation 98 97 06/06/20 06/06/20 17:00 17:30 Temperature Heart Rate 87 87 Respiratory 26 H 26 H Rate Blood Pressure 104/62 109/70 O2 Saturation 98 97 Oxygen O2 Source Room air - EKG (time done) 15:39 Rate: Rate (enter#) (76) Rhythm: Atrial fibrillation [place]: Normal QRS: Normal Ischemia: Normal ST segments. No: ST elevation c/w ischemia, ST depression Compare to prior EKG: Changed from prior EKG (similar morphology to Feb 2020, but was NSR then, and atrial fib now. ) - Labs Labs: Laboratory Tests 06/06/20 06/06/20 06/06/20 15:40 15:40 15:40 WBC 8.5 RBC 4.39 L Hgb 12.1 L Hct 38.3 L MCV 87.2 MCH 27.6 MCHC 31.6 L RDW 14.8 Plt Count 220 MPV 8.9 Neut # (Auto) 6.6 Lymph # (Auto) 0.6 L Day # (Auto) 0.9 Eos # (Auto) 0.4 Baso # (Auto) 0.0 Absolute Nucleated RBC 0.00 Nucleated RBC % 0.0 PT 60.7 H INR 6.1 H* Sodium 135 Potassium 4.6 Chloride 95 L Carbon Dioxide 27 Anion Gap 13.0 BUN 20 Creatinine 1.1 Estimated GFR (MDRD) 65 L Glucose 122 H Calcium 9.0 Total Bilirubin 0.3 AST 32 ALT 56 Alkaline Phosphatase 97 Troponin I High Sens B-Natriuretic Peptide Total Protein 7.3 Albumin 3.1 L Globulin 4.2 Albumin/Globulin Ratio 0.7 L Lipase 23 06/06/20 06/06/20 15:40 15:40 WBC RBC Hgb Hct MCV MCH MCHC RDW Plt Count MPV Neut # (Auto) Lymph # (Auto) Day # (Auto) Eos # (Auto) Baso # (Auto) Absolute Nucleated RBC Nucleated RBC % PT INR Sodium Potassium Chloride Carbon Dioxide Anion Gap BUN Creatinine Estimated GFR (MDRD) Glucose Calcium Total Bilirubin AST ALT Alkaline Phosphatase Troponin I High Sens 19.4 B-Natriuretic Peptide 414 H Total Protein Albumin Globulin Albumin/Globulin Ratio Lipase - Rads (name of study) chest xray Radiology: Prelim report reviewed (left basilar opacity c/w pneumonia. small bibasilar effusions. ), See rad report PD MEDICAL DECISION MAKING - ED course Complexity details: reviewed results, considered differential (has had cough and congestion, dyspnea on exertion. CXR showing left infiltrate. Will treat as pneumonia. Sats and vitals are okay, so no indication for admission. Atrial fib, without history of it, but rate controlled and already anticoagulated. ), d/w patient Departure - Departure Disposition: Home, Self Care Clinical Impression: Supratherapeutic international normalized ratio (INR), residential current use of anticoagulant therapy Dyspnea Qualifiers: Dyspnea type: dyspnea on exertion Qualified Code(s): R06.00 - Dyspnea, unspecified Pneumonia Qualifiers: Pneumonia type: due to unspecified organism Laterality: left Lung location: lower lobe of lung Qualified Code(s): J18.9 - Pneumonia, unspecified organism Condition: Stable Record reviewed to determine appropriate education?: Yes Instructions: ED Pneumonia Adult Follow-Up: Jose A Roth MD [Provider Admit Priv/Credential] - [facility] [Provider Group] Prescriptions: Albuterol Sulf [Ventolin Hfa Inhaler] 2 - 3 puffs INH Q4HR PRN #1 inhaler PRN Reason: Shortness Of Air/Wheezing cefUROXime axetiL [Ceftin] 500 mg PO BID #14 tablet dexAMETHasone [Decadron] 4 mg PO DAILY #5 tablet Comments: Your chest x-ray shows a patch of pneumonia on the lower left. Your symptoms would be consistent with some pneumonia. Your oxygenation is good. Your heart rate is controlled but is in a regular pattern called atrial fibrillation at this time. There is not any significant fluid around the lung. This does not appear to be CHF. Your Coumadin level is above the normal therapeutic level at 6.1. Hold your dose for 2 days and then recheck it on Saturday. If it is down in the correct range, then just resume your Coumadin. If it still elevated then hold it another day and recheck it. Antibiotic twice daily for your pneumonia. Decadron steroid daily for 5 more days for the inflammation of the airways. Use the albuterol 3-4 times a day regularly for the next several days to week. Follow-up with your primary care in the next 2 to 3 days, call for an appointment. Return to the ER if worsening. Discharge Date/Time: 06/06/20 17:50
[2020-06-06] MEDS ORDERED: ALBUTEROL NEB 2.5 MG/3 ML INH STA (15:27)
--- NOTE | 2020-06-06 15:49 | XRAY Report ---
PROCEDURE: Chest 1 View X-Ray INDICATIONS: Chest Pain TECHNIQUE: One view of the chest was acquired. COMPARISON: Chest x-ray 03/07/2020. Chest CT scan 03/07/2020. FINDINGS: Surgical changes and devices: Sternotomy wires. Lungs and pleura: Small bilateral pleural fluid collections. Patchy opacity in the left lung base. Mediastinum: Mediastinal contours appear normal. Heart is enlarged. Bones and chest wall: No suspicious bony lesions. Overlying soft tissues appear unremarkable. IMPRESSION: 1. Small bilateral pleural effusions. 2. Patchy left basilar opacity which could represent atelectasis or pneumonia. Reviewed by: Annemarie Jimenes MD, PhD on 06/06/2020 3:47 PM PDT Approved by: Annemarie Jimenes MD, PhD on 06/06/2020 3:47 PM PDT Station ID: [id number]
[2020-06-06] MEDS ORDERED: DEXAMETHASONE 10 MG/ML VIAL PO STA (15:56)
[2020-06-06] MEDS ORDERED: CHERRY SYRUP 10 ML UDC PO ONE (15:56)
[2020-06-06 15:57] LABS: BASOPHILS % (AUTO) 0.5 %; EOSINOPHILS # (AUTO) 0.4 10^3/uL (0.0-0.7); EOSINOPHILS % (AUTO) 4.6 %; HCT - HEMATOCRIT 38.3 % (42.0-52.0); HGB - HEMOGLOBIN 12.1 g/dL (14.0-18.0); LYMPHOCYTES # (AUTO) 0.6 10^3/uL (1.5-3.5); LYMPHOCYTES % (AUTO) 7.4 %; MEAN CORPUSCULAR HEMOGLOBIN 27.6 pg (27.0-31.0); MEAN CORPUSCULAR HGB CONC 31.6 g/dL (32.0-36.0); MEAN CORPUSCULAR VOLUME 87.2 fL (80.0-94.0); MEAN PLATELET VOLUME 8.9 fL (7.4-11.4); MONOCYTES # (AUTO) 0.9 10^3/uL (0.0-1.0); MONOCYTES % (AUTO) 10.3 %; NEUTROPHILS # (AUTO) 6.6 10^3/uL (1.5-6.6); NEUTROPHILS % (AUTO) 76.8 %; PLT - PLATELET COUNT 220 10^3/uL (130-450); RED BLOOD COUNT 4.39 10^6/uL (4.70-6.10); RED CELL DISTRIBUTION WIDTH 14.8 % (12.0-15.0); WHITE BLOOD COUNT 8.5 x10^3/uL (4.8-10.8)
[2020-06-06 16:09] LABS: PT - PROTHROMBIN TIME 60.7 secs (9.9-12.6)
[2020-06-06 16:13] LABS: ALBUMIN 3.1 g/dL (3.2-5.5); ALBUMIN/GLOBULIN RATIO 0.7 (1.0-2.2); BILIRUBIN,TOTAL 0.3 mg/dL (0.2-1.0); CREATININE 1.1 mg/dL (0.6-1.2); POTASSIUM 4.6 mmol/L (3.5-5.0); TOTAL PROTEIN 7.3 g/dL (6.7-8.2)
[2020-06-06 16:26] LABS: INR 6.1 (0.8-1.2)
[2020-06-06 17:55] VITALS: BP 109/70
== END 2020-06-06 17:50 | disposition home or self-care (01) ==
LOC: ED 14:32
DX: J18.9 Pneumonia, unspecified organism (principal); R06.00 Dyspnea, unspecified; E11.9 Type 2 diabetes mellitus without complications; I48.91 Unspecified atrial fibrillation; Z79.84 Long term (current) use of oral hypoglycemic drugs; Z87.891 Personal history of nicotine dependence
CPT/HCPCS: 36415; 71045; 80053; 83690; 83880; 84484; 85025; 85610; 93005; 94640; 99283; 99284; A9270; U0004

== ENCOUNTER 2020-06-13 13:54 | Inpatient (IN) | payer MEDICARE, OTHER ==
[2020-06-13] MEDS ORDERED: ADENOSINE 6 MG/2 ML VIAL IVP STA (14:19)
[2020-06-13] MEDS ORDERED: SODIUM CHLORIDE 0.9% 1,000 ML IV STA (14:19)
[2020-06-13 14:26] LABS: BASOPHILS % (AUTO) 0.3 %; EOSINOPHILS # (AUTO) 0.5 10^3/uL (0.0-0.7); EOSINOPHILS % (AUTO) 3.3 %; HCT - HEMATOCRIT 46.3 % (42.0-52.0); HGB - HEMOGLOBIN 14.6 g/dL (14.0-18.0); LYMPHOCYTES # (AUTO) 0.8 10^3/uL (1.5-3.5); LYMPHOCYTES % (AUTO) 5.7 %; MEAN CORPUSCULAR HEMOGLOBIN 27.6 pg (27.0-31.0); MEAN CORPUSCULAR HGB CONC 31.5 g/dL (32.0-36.0); MEAN CORPUSCULAR VOLUME 87.5 fL (80.0-94.0); MEAN PLATELET VOLUME 9.2 fL (7.4-11.4); MONOCYTES # (AUTO) 1.3 10^3/uL (0.0-1.0); MONOCYTES % (AUTO) 8.6 %; NEUTROPHILS # (AUTO) 11.9 10^3/uL (1.5-6.6); NEUTROPHILS % (AUTO) 81.4 %; PLT - PLATELET COUNT 296 10^3/uL (130-450); RED BLOOD COUNT 5.29 10^6/uL (4.70-6.10); RED CELL DISTRIBUTION WIDTH 15.2 % (12.0-15.0); WHITE BLOOD COUNT 14.6 x10^3/uL (4.8-10.8)
[2020-06-13] MEDS ORDERED: DILTIAZEM 125 MG in DEXTROSE 5% 100 ML IV STA (14:29)
--- NOTE | 2020-06-13 14:34 | ED Physician Documentation ---
History of Present Illness - Stated complaint Stated Complaint: RAPID HEART RATE - Chief complaint Chief Complaint: Cardiac - History obtained from History obtained from: Patient - History of Present Illness Timing: Today Pain level max: 0 Pain level now: 0 - Additonal information Additional information: 79-year-old male presents to the emergency department with mild shortness of breath over the past few days. He went to his primary care provider today and was found to be tachycardic and in possible SVT, so they sent him here for evaluation. No chest pain. No fever. Occasional cough in the morning. Patient is on warfarin for an artificial heart valve. Review of Systems Ten Systems: 10 systems reviewed and negative Constitutional: denies: Fever, Chills GI: denies: Nausea, Vomiting, Diarrhea Skin: denies: Rash Musculoskeletal: denies: Neck pain, Back pain Neurologic: denies: Headache PD PAST MEDICAL HISTORY - Past Medical History Past Medical History: Yes Cardiovascular: High cholesterol, Valve disorder, Other Endocrine/Autoimmune: Type 2 diabetes - Past Surgical History Past Surgical History: Yes Cardiovascular: Valve replacement - Present Medications Home Medications: Ambulatory Orders Medication Instructions Recorded Confirmed Finasteride 5 mg PO DAILY 03/20/17 06/06/20 Latanoprost [Xalatan] 1 drops OP DAILY 03/20/17 06/06/20 Metformin HCl 500 mg PO BID 03/20/17 06/06/20 Nystatin/Triamcin 60 gm TP DAILY 03/20/17 06/06/20 [Nystatin-Triamcinolone Ointm] Simvastatin [Zocor] 40 mg PO DAILY 03/20/17 06/06/20 Warfarin Sodium [Coumadin] 10 mg PO DAILY 03/20/17 06/06/20 Zolpidem Tartrate [Ambien] 1 - 2 tab PO DAILY PRN MDD 20 03/20/17 06/06/20 traZODone [Desyrel] 100 mg PO HS 03/20/17 06/06/20 methylPREDNISolone 4 mg PO DAILY 11/04/17 06/06/20 [Methylprednisolone] Albuterol Sulf [Ventolin Hfa 2 - 3 puffs INH Q4HR PRN #1 inhaler 06/06/20 Inhaler] cefUROXime axetiL [Ceftin] 500 mg PO BID #14 tablet 06/06/20 dexAMETHasone [Decadron] 4 mg PO DAILY #5 tablet 06/06/20 - Allergies Allergies/Adverse Reactions: Allergies Allergy/AdvReac Type Severity Reaction Status Date / Time No Known Drug Allergies Allergy Verified 06/13/20 13:58 - Social History Does the pt smoke?: Yes Smoking Status: Current every day smoker Does the pt drink ETOH?: Yes Does the pt have substance abuse?: No - Immunizations Immunizations are current?: Yes - POLST Patient has POLST: Yes PD ED PE NORMAL - Vitals Vital signs reviewed: Yes - General General: Alert and oriented X 3, No acute distress, Well developed/nourished - HEENT HEENT: PERRL, Moist mucous membranes - Neck Neck: Supple, no meningeal sign - Cardiac Cardiac: Other (Tachycardic, regular) - Respiratory Respiratory: No respiratory distress, Clear bilaterally - Abdomen Abdomen: Soft, Non tender, Non distended - Derm Derm: Warm and dry - Extremities Extremities: No calf tenderness / cord - Neuro Neuro: Alert and oriented X 3 - Psych Psych: Normal mood, Normal affect Results - Vitals Vitals: Vital Signs - 24 hr 06/13/20 06/13/20 06/13/20 14:01 14:32 15:01 Temperature 36.9 C Heart Rate 150 H 145 H 108 H Respiratory 24 26 H 18 Rate Blood Pressure 124/93 H 119/80 105/64 O2 Saturation 94 100 100 06/13/20 06/13/20 06/13/20 15:30 16:08 16:30 Temperature Heart Rate 96 95 96 Respiratory 18 18 16 Rate Blood Pressure 126/64 122/63 117/64 O2 Saturation 100 98 100 06/13/20 17:00 Temperature Heart Rate 95 Respiratory 16 Rate Blood Pressure 118/59 L O2 Saturation 100 Oxygen O2 Source Nasal cannula - EKG (time done) 1405 Rate: Rate (enter#) (146) Rhythm: SVT [place]: Normal Intervals: Normal DC QRS: Normal Ischemia: Other (rate related changes) - Labs Labs: Laboratory Tests 06/13/20 06/13/20 06/13/20 14:11 14:11 14:11 WBC 14.6 H RBC 5.29 Hgb 14.6 Hct 46.3 MCV 87.5 MCH 27.6 MCHC 31.5 L RDW 15.2 H Plt Count 296 MPV 9.2 Neut # (Auto) 11.9 H Lymph # (Auto) 0.8 L [place] # (Auto) 1.3 H Eos # (Auto) 0.5 Baso # (Auto) 0.0 Absolute Nucleated RBC 0.00 Nucleated RBC % 0.0 PT INR Sodium 136 Potassium 4.7 Chloride 95 L Carbon Dioxide 27 Anion Gap 14.0 H BUN 25 H Creatinine 1.2 Estimated GFR (MDRD) 59 L Glucose 190 H Calcium 9.5 Total Bilirubin 0.6 AST 22 ALT 36 Alkaline Phosphatase 105 Troponin I High Sens 31.4 H* B-Natriuretic Peptide Total Protein 7.7 Albumin 3.4 Globulin 4.3 H Albumin/Globulin Ratio 0.8 L Lipase 25 Nasal Adenovirus (PCR) Nasal B. parapertussis DNA (PCR) Nasal Coronavir 229E PCR Nasal Coronavir HKU1 PCR Nasal Coronavir NL63 PCR Nasal Coronavir OC43 PCR Nasal Enterovir/Rhinovir PCR Nasal Influenza B PCR Nasal Influenza A PCR Nasal Parainfluen 1 PCR Nasal Parainfluen 2 PCR Nasal Parainfluen 3 PCR Nasal Parainfluen 4 PCR Nasal RSV (PCR) Nasal B.pertussis DNA PCR Nasal C.pneumoniae (PCR) Dre Human Metapneumo PCR Nasal M.pneumoniae (PCR) Nasal SARS-CoV-2 (PCR) 06/13/20 06/13/20 06/13/20 14:11 14:11 15:03 WBC RBC Hgb Hct MCV MCH MCHC RDW Plt Count MPV Neut # (Auto) Lymph # (Auto) [place] # (Auto) Eos # (Auto) Baso # (Auto) Absolute Nucleated RBC Nucleated RBC % PT 38.8 H INR 3.8 H Sodium Potassium Chloride Carbon Dioxide Anion Gap BUN Creatinine Estimated GFR (MDRD) Glucose Calcium Total Bilirubin AST ALT Alkaline Phosphatase Troponin I High Sens B-Natriuretic Peptide 388 H Total Protein Albumin Globulin Albumin/Globulin Ratio Lipase Nasal Adenovirus (PCR) NOT DETECTED Nasal B. parapertussis DNA (PCR) NOT DETECTED Nasal Coronavir 229E PCR NOT DETECTED Nasal Coronavir HKU1 PCR NOT DETECTED Nasal Coronavir NL63 PCR NOT DETECTED Nasal Coronavir OC43 PCR NOT DETECTED Nasal Enterovir/Rhinovir PCR NOT DETECTED Nasal Influenza B PCR NOT DETECTED Nasal Influenza A PCR NOT DETECTED Nasal Parainfluen 1 PCR NOT DETECTED Nasal Parainfluen 2 PCR NOT DETECTED Nasal Parainfluen 3 PCR NOT DETECTED Nasal Parainfluen 4 PCR NOT DETECTED Nasal RSV (PCR) NOT DETECTED Nasal B.pertussis DNA PCR NOT DETECTED Nasal C.pneumoniae (PCR) NOT DETECTED Dre Human Metapneumo PCR NOT DETECTED Nasal M.pneumoniae (PCR) NOT DETECTED Nasal SARS-CoV-2 (PCR) NOT DETECTED - Rads (name of study) cxr Radiology: Prelim report reviewed, EMP read contemporaneously, See rad report PD MEDICAL DECISION MAKING - ED course Complexity details: reviewed results, re-evaluated patient, considered differential, d/w patient ED course: Diltiazem drip.Patient was given 6 mg of adenosine for possible SVT, when his heart rate slowed, he was clearly in atrial flutter. Started on a diltiazem drip. His rate was eventually controlled and the drip was stopped. We will admit the patient for further care as this is the first episode. Patient placed in observation with hospitalist, Dr. Butler. This document was made in part using voice recognition software. While efforts are made to proofread this document, sound alike and grammatical errors may occur. Departure - Departure Disposition: ED Place in Observation Clinical Impression: Atrial flutter with rapid ventricular response Condition: Stable Discharge Date/Time: 06/13/20 18:00
--- NOTE | 2020-06-13 14:35 | XRAY Report ---
PROCEDURE: Chest 1 View X-Ray INDICATIONS: Chest Pain TECHNIQUE: One view of the chest was acquired. COMPARISON: 06/06/2020 FINDINGS: Surgical changes and devices: Median sternotomy wires. Lungs and pleura: Small bilateral pleural fluid collections. Left-sided pleural fluid collection is i ncreased slightly in size compared to 06/06/2020. Right-sided pleural fluid collection is unchanged. P atchy opacity in the left lung base compatible compressive atelectasis versus pneumonia. Mediastinum: Mediastinal contours appear normal. Heart size is normal. Bones and chest wall: No suspicious bony lesions. Overlying soft tissues appear unremarkable. IMPRESSION: 1. Left-sided pleural fluid collection slightly increased in size compared to 06/06/2020. 2. Right-sided pleural fluid collection stable compared to prior exam. 3. Patchy opacities in the left lung base and/or compressive atelectasis versus pneumonia. Reviewed by: Annemarie Jimenes MD, PhD on 06/13/2020 2:34 PM PDT Approved by: Annemarie Jimenes MD, PhD on 06/13/2020 2:34 PM PDT Station ID: [id number]
[2020-06-13 14:38] LABS: ALBUMIN 3.4 g/dL (3.2-5.5); ALBUMIN/GLOBULIN RATIO 0.8 (1.0-2.2); BILIRUBIN,TOTAL 0.6 mg/dL (0.2-1.0); CALCIUM 9.5 mg/dL (8.5-10.3); CREATININE 1.2 mg/dL (0.6-1.2); POTASSIUM 4.7 mmol/L (3.5-5.0); TOTAL PROTEIN 7.7 g/dL (6.7-8.2)
[2020-06-13 14:47] LABS: INR 3.8 (0.8-1.2); PT - PROTHROMBIN TIME 38.8 secs (9.9-12.6)
[2020-06-13] MEDS ORDERED: diltiaZEM INJ 5 MG/ML VIAL IVP STA (14:54)
[2020-06-13 16:06] LABS: B. PARAPERTUSSIS- RESP PCR PAN NOT DETECTED; B. PERTUSSIS- RESP PCR PANEL NOT DETECTED; C. PNEUMONIAE- RESP PCR PANEL NOT DETECTED; CORONAVIRUS 229E-RESP PCR NOT DETECTED; CORONAVIRUS HKU1-RESP PCR NOT DETECTED; CORONAVIRUS NL63-RESP PCR NOT DETECTED; CORONAVIRUS OC43-RESP PCR NOT DETECTED; HUMAN METAPNEUMOVIRUS NOT DETECTED; INFLUENZA A- RESP PCR PANEL NOT DETECTED; INFLUENZA B - RESP PCR PANEL NOT DETECTED; M. PNEUMONIAE- RESP PCR PANEL NOT DETECTED; PARAINFLUENZA VIRUS 1 NOT DETECTED; PARAINFLUENZA VIRUS 2 NOT DETECTED; PARAINFLUENZA VIRUS 3 NOT DETECTED; PARAINFLUENZA VIRUS 4 NOT DETECTED; RHINOVIRUS/ENTEROVIRUS NOT DETECTED; RSV- RESP PCR PANEL NOT DETECTED; SARS-CoV-2 -RESP PCR PANEL NOT DETECTED
[2020-06-13] MEDS ORDERED: ONDANSETRON ODT 4 MG TABLET TL PRN (17:08)
[2020-06-13] MEDS: METOPROLOL TARTRATE 50 MG TABLET PO SCH ×3 (18:44→21:17)
[2020-06-13] MEDS: polyethylene glycoL 3350 17 GM PACKET PO SCH (20:21)
--- NOTE | 2020-06-13 20:32 | HISTORY & PHYSICAL EXAMINATION ---
Chief Complaint - Chief Complaint Chief Complaint: Shortness of breath History of Present Illness - Admitted From Admitted From:: Home - History Obtained From Records Reviewed: [facility] History obtained from: Patient and [facility] Exam Limitations: He shortness of breath - History of Present Illness HPI Comment/Other: Mr. Ruiz who is a 79-year-old white male presented to the emergency room in February 2020 with sharp, left-sided chest pain, nonexertional. He was short of breath with this. Owings a rattling in his left lower lung. Did not have any fevers, chills, calf pain. He does have a past medical history of a right lung cancer where he describes the right middle lobe and right lower lobe being involved. He recovered with radiation therapy After a robotic assisted tumor resection at [facility]. He does not describe chemotherapy. He mentions a "spot on the left lung" that was also treated. In the ER he was mildly febrile at 37.1. Heart rate was normal. And he was 99% on room air. CT of the chest showed hazy groundglass opacity left lingula concerning for atypical pneumonia versus pneumonitis. A masslike consolidation could be pneumonia or tumor and would need follow-up. He also had changes of possible pulmonary fibrosis, cardiomegaly, and an ascending aortic aneurysm. He was treated as pneumonia. He saw his primary care provider and a follow-up echocardiogram showed him to have a preserved ejection fraction. 60 to 65%. Grade 1 diastolic dysfunction. A well-seated [place] aortic valve that had been done in 1993. He had a dilated aorta of 5.1 cm. He was treated as pneumonia and sent home. He said that he recovered from that episode of pneumonia and was feeling back to baseline. Baseline for him is taking care of his house, taking care of his . Pain the bills. Driving, cooking. "I do it all". He does not need any durable medical equipment or oxygen. Then in the second week of May he developed recurrence of cough, shortness of breath, chills, fever. It was gradual in onset and got severe enough that he came back to the emergency room June 06. He has been sick for about a week when he was seen. He was mildly tachypneic at 26. He describes that any minimal activity was wiping amount. Just getting up to go to the bathroom required half an hour to an hour of recovery. He could not do anything because of the dyspnea on exertion. Most of the time he was laying down or sitting down because he was so short of breath. He denied pedal edema, chest pain. Mildly hypotensive at 104-109 sytolic. But heart rate was 87 and he was 97 to 98% on room air. Chest x-ray showed small bilateral pleural effusions, patchy left basilar opacity representing atelectasis or pneumonia. He was given Ventolin, Ceftin, and Decadron. His INR was 6.1 on his Coumadin so he was told to hold his Coumadin. For a few days he felt like he was starting to improve and he thought he was back on the mend again. Then he started having a rapid heart rate. He could feel it just racing and it made him short of breath again. No fever, no chills, no cough. No edema in his legs. Mild orthopnea. His chest felt full but without chest pain. He went to see his primary care provider today and he was found to be tachycardic and possible SVT. So he was sent to the emergency room and he came here by private vehicle. Heart rate was 150. He was given adenosine which slowed his heart rate down enough for them to see that he was in atrial flutter. He was then given diltiazem 10 mg IV push, then a diltiazem drip. He responded nicely to that and his heart rate was in the 90s. As such he has been put back on his metoprolol 50 mg p.o. twice daily. Its not on his medication list through the intake form from nursing but he states he does take that on a regular basis. Repeat chest x-ray showed a left-sided pleural effusion that it slightly increased in size. A right-sided pleural effusion that was stable. Patchy opacities in the left lung base and/or compressive atelectasis. Troponin #1 was 31.4. Troponin #2 is 38. BNP is 388. White cell count is 14.6 while on steroids. INR is 3.8 today. Urinalysis does not have an infection. He is Covid negative. We are now placing him in observation to make sure that his heart rate stays controlled. History - Past Medical History Cardiovascular: reports: High cholesterol, Valve disorder (Echocardiogram March 13 with EF 60-65%. Normal aortic valve [place]. Dilated aorta up to 5.5 cm.) Respiratory: reports: Pneumonia, Sleep apnea (sevre w AHI 58.1), CPAP use, Other (Lung cancer right middle lobe and right lower lobe) Neuro: reports: None Endocrine/Autoimmune: reports: Type 2 diabetes : reports: Benign prostate hypertrophy HEENT: reports: Chronic vision loss, Glaucoma Psych: reports: None Musculoskeletal: reports: Osteoarthritis Derm: reports: Other (Skin cancer for which he sees dermatology every 6 months) MRSA Hx?: No - Past Surgical History Cardiovascular: reports: Valve replacement, Lobectomy Derm: reports: Skin cancer surgery - Family & Social History Family History Comment/Other: Dad was 72 years old when he of esophageal cancer. He did not know him very well because he had been from his mother for a very long time. Mom was 88 and after a few days in a [facility] facility due to complications dementia and psychosis. No siblings. 1 son of a heart attack in his 50s. He does have 1 adopted son as well. Living arrangement: At home Living Situation: With spouse/s.o. Social History Notes: He is retired [employer]. 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 doing the same thing. 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 He and his had an RV and they traveled all over the country. They sold that and stayed in their home here on [address]. Unfortunately she was just diagnosed with metastatic breast cancer. She survived lung cancer around the same time he did. Right now they are both trying to get their mind around her diagnosis and what this will mean. He is a former smoker started smoking as a teenager and smoked 3 packs/day and quit in 1984. Has no history of alcohol abuse. Denies any recreational substance abuse. - Substance History Use: Uses substance without health or social issues: NONE Abuse: Recurrent use of substance despite neg consequences: NONE Dependence: Experiences withdrawal or developed tolerances: NONE - POLST Patient has POLST: Yes POLST Status: Full Code Meds/Allgy - Home Medications Home Medications: Ambulatory Orders Medication Instructions Recorded Confirmed Finasteride 5 mg PO DAILY 03/20/17 06/06/20 Latanoprost [Xalatan] 1 drops OP DAILY 03/20/17 06/06/20 Metformin HCl 500 mg PO BID 03/20/17 06/06/20 Nystatin/Triamcin 60 gm TP DAILY 03/20/17 06/06/20 [Nystatin-Triamcinolone Ointm] Simvastatin [Zocor] 40 mg PO DAILY 03/20/17 06/06/20 Warfarin Sodium [Coumadin] 10 mg PO DAILY 03/20/17 06/06/20 Zolpidem Tartrate [Ambien] 1 - 2 tab PO DAILY PRN MDD 20 03/20/17 06/06/20 traZODone [Desyrel] 100 mg PO HS 03/20/17 06/06/20 methylPREDNISolone 4 mg PO DAILY 11/04/17 06/06/20 [Methylprednisolone] Albuterol Sulf [Ventolin Hfa 2 - 3 puffs INH Q4HR PRN #1 inhaler 06/06/20 Inhaler] cefUROXime axetiL [Ceftin] 500 mg PO BID #14 tablet 06/06/20 dexAMETHasone [Decadron] 4 mg PO DAILY #5 tablet 06/06/20 - Allergies Allergies/Adverse Reactions: Allergies Allergy/AdvReac Type Severity Reaction Status Date / Time No Known Drug Allergies Allergy Verified 06/13/20 13:58 Review of Systems - Constitutional Constitutional: reports: Fatigue, Malaise, Weakness, Poor appetite. denies: Diaphoresis, Night sweats - Eyes Eyes: reports: Vision loss (chronic), Corrective lenses - Ears, Nose & Throat Ears, Nose & Throat: denies: Ear pain, Hearing loss, Hearing aids, Nasal discharge, Nosebleeds, Nasal obstruction, Nasal congestion, Postnasal drainage, Sore throat, Hoarseness - Cardiovascular Cariovascular: reports: Irregular heart rate, Palpitations, Exertional dyspnea, Decr. exercise tolerance. denies: Chest pain, Edema, Lightheadedness, Syncope - Respiratory Respiratory: reports: Cough, Sputum production, Wheezing. denies: Snoring - Gastrointestinal Gastrointestinal: reports: Poor appetite. denies: Abdominal pain, Abdominal d istention, Constipation, Diarrhea - Genitourinary Genitourinary: reports: Frequency, Urgency, Nocturia (with decreased stream) - Musculoskeletal Musculoskeletal: reports: Joint pain. denies: Muscle pain, Back pain, Muscle aches, Stiffness - Integumentary Integumentary: reports: Lesions (always). denies: Rash, Pruritis - Neurological Neurological: reports: General weakness. denies: Focal weakness, Headache, Dizziness, Numbness, Memory problems, Pre-existing deficit - Psychiatric Psychiatric: denies: Depression, Anxiety, Suicidal, Delusions, Hallucinations - Endocrine Endocrine: denies: Polyuria, Polydypsia, Polyphagia - Hematologic/Lymphatic Hematologic/Lymphatic: reports: Bruising. denies: Anemia, Petechiae Prior Level of Functionality: Prior to his pneumonia in February he was completely independent with activities of daily living. Was a doting . When he got sick with pneumonia he took a downturn but then recovered. He is back to being winded, unable to take care of himself or his in the last week. Exam - Vital Signs Reviewed Vital Signs: Yes Vital Signs: Vital Signs x48h Temp Pulse Pulse Resp BP BP Pulse Ox 06/13/20 19:07 100 06/13/20 18:44 126/91 H 06/13/20 18:00 36.5 C 109 H 20 112/84 H 100 06/13/20 17:30 96 16 101/63 100 06/13/20 17:00 95 16 118/59 L 100 06/13/20 16:30 96 16 117/64 100 06/13/20 16:08 95 18 122/63 98 06/13/20 15:30 96 18 126/64 100 06/13/20 15:01 108 H 18 105/64 100 06/13/20 14:32 145 H 26 H 119/80 100 06/13/20 14:01 36.9 C 150 H 24 124/93 H 94 - Physical Exam General Appearance: positive: No acute distress, Alert, Other (He was asleep when I walked in, and he allowed me to turn on the lights. Comfortable at rest. When he began speaking and after a few minutes becomes tachypneic with this effort. Recovers if he is at rest and is not speaking.) Eyes Bilateral: positive: PERRL, EOMI ENT: positive: Dry mucous membranes. negative: Pharyngeal erythema Neck: positive: No JVD. negative: Stiff neck, Carotid bruit Respiratory: positive: Rhonchi, Other (Tachypneic with speaking. But no use of accessory muscles, no stridor, states comfortable at about 35 to 40 degrees.) Cardiovascular: positive: Regular rate & rhythm, Systolic murmur. negative: Gallop/S4, Friction rub Peripheral Pulses: positive: 1+ Abdomen: positive: No organomegaly, Nml bowel sounds, No distention, Tenderness Skin: positive: Warm, Dry, Pallor, Other (Multiple AK's and SKs on his face. Looks like he has a large wart on the right medial kneecap.) Extremities: positive: Full ROM, No pedal edema (At all). negative: Lorie's sign/cords Neurologic/Psychiatric: positive: Oriented x3, CN's nml (2-12), Motor nml, Sensation nml. negative: Mood/affect nml (Sad, states he is overwhelmed) Conclusion/Plan - Problem List (1) Atrial flutter with rapid ventricular response Conclusion/Plan: Who has aortic valvular heart disease but her recent echocardiogram shows him to have intact chamber sizes. His aortic valve replacement is well-seated without malfunction. He is not having an [place]. He is adequately anticoagulated with INR is that of been supratherapeutic for over a month and a half so I doubt pulmonary embolism. The only thing I can think of that would be causing it is pleural effusion and irritation from pneumonia. [id number] score is 5 ponts or 7.2% risk. Moderate high risk and should be on anticoagulation which he already is on for AoVR in 1993. INR supratheraputic. Plan: Observation status Resume p.o. metoprolol as fast as possible to control his heart rate. It is 8:47 PM. Last recorded heart rate was at 5:30 PM. It was 96. He is on telemetry and rate is in the 90s. Blood pressure 126/91 and is 100% on room air. I will increase metoprolol from baseline 50 mg bid to 75 mg bid. Already anticoagulated and will resume tomorrow since his INR is 3.8 (2) Recurrent pneumonia Conclusion/Plan: This is a gentleman who has a previous history of right lung cancer and a "spot" on his left lung. He has pleural effusions. Pleural effusions could certainly be due to infection. However he has not had a follow-up CT scan since [facility]'s CT. He is due for a CT in the next month with follow-up with his oncologist at the beginning of July. Plan: Repeat CT of the chest before tomorrow discharge (3) Type 2 diabetes mellitus without complication, without long-term current use of insulin Conclusion/Plan: Hold Metformin while he is here. Sliding scale moderate insulin (4) Full code status Conclusion/Plan: is power of senior trial attorney followed by his son Sadiq and then his [id number] Larissa. DPOA is in his EMR. Advanced directive is also in the EMR. If terminal illness is present, however, DNR. If unconscious on life support, DNR. He wishes to at home. (5) FUAD on CPAP Conclusion/Plan: He is described as severe obstructive sleep apnea with an AHI 58.1. He has been compliant with his CPAP machine and follow-up with the sleep clinic. He did not bring his sleep machine with him today. We will make sure he has at least nasal cannula oxygen while he is on MedSurg. (6) Aortic arch aneurysm Conclusion/Plan: He states that his cardiovascular surgeon is aware of the size of his aortic arch. As far as he knows it is 5.5 cm. "They are just keeping an eye on it" - Lab Results Lab results reviewed: Yes Luciano Bones: 06/13/20 14:11 06/13/20 14:11 - Diagnostic Imaging Results Diagnostic Imaging Results: positive: Final report reviewed (Report summarized in history of present illness) - EKG Results EKG Interpreted Independently: No Core Measures - Anticipated LOS I expect patient to be DC'd or transferred within 96 hours.: Yes - DVT/VTE - Prophylaxis VTE/DVT Device ordered at admit?: Yes
[2020-06-13] MEDS: traZODone 50 MG TABLET PO SCH (21:16)
[2020-06-13] MEDS: INSULIN ASPART 300 UNIT/3 ML PEN SUBQ SCH (21:20)
[2020-06-13] MEDS: SODIUM CHLORIDE FLUSH 0.9% 10 ML SYRINGE IVP SCH (23:52)
[2020-06-14 05:24] LABS: BASOPHILS % (AUTO) 0.3 %; EOSINOPHILS # (AUTO) 0.6 10^3/uL (0.0-0.7); HCT - HEMATOCRIT 40.6 % (42.0-52.0); HGB - HEMOGLOBIN 12.8 g/dL (14.0-18.0); LYMPHOCYTES # (AUTO) 0.8 10^3/uL (1.5-3.5); LYMPHOCYTES % (AUTO) 6.9 %; MEAN CORPUSCULAR HEMOGLOBIN 27.1 pg (27.0-31.0); MEAN CORPUSCULAR HGB CONC 31.5 g/dL (32.0-36.0); MEAN PLATELET VOLUME 8.9 fL (7.4-11.4); MONOCYTES % (AUTO) 9.2 %; NEUTROPHILS # (AUTO) 8.6 10^3/uL (1.5-6.6); NEUTROPHILS % (AUTO) 77.9 %; PLT - PLATELET COUNT 229 10^3/uL (130-450); RED BLOOD COUNT 4.72 10^6/uL (4.70-6.10); RED CELL DISTRIBUTION WIDTH 15.1 % (12.0-15.0); WHITE BLOOD COUNT 11.1 x10^3/uL (4.8-10.8)
[2020-06-14 05:32] LABS: CALCIUM 8.7 mg/dL (8.5-10.3); CREATININE 0.8 mg/dL (0.6-1.2); MAGNESIUM 1.8 mg/dL (1.7-2.8); POTASSIUM 4.3 mmol/L (3.5-5.0)
[2020-06-14] MEDS: INSULIN ASPART 300 UNIT/3 ML PEN SUBQ SCH ×4 (07:39→21:49)
[2020-06-14] MEDS ORDERED: BISACODYL 10 MG SUPP PR ONE (07:41)
--- NOTE | 2020-06-14 07:43 | PHARMACY PROGRESS NOTE ---
- Best Possible Medication History Admit Date and Time: 06/13/20 1437 Processed by: Pharmacy Medication History completed: Yes Patient Interview: Completed Secondary Source(s): Written medication list, Pharmacy records, Insurance records As the person ultimately responsible for medication therapy, providers are able to order a medication from an existing home medication list in [facility] via the "Reconcile Routine" prior to Confirmation of that medication by ground support agent. Such practice is discouraged except when the physician, in their clinical judgment, deems that a medical need exists for a medication without regard to previous use.
[2020-06-14] MEDS: METOPROLOL TARTRATE 50 MG TABLET PO SCH ×2 (08:23→21:47)
[2020-06-14] MEDS: FINASTERIDE 5 MG TABLET PO SCH (08:23)
[2020-06-14] MEDS: SODIUM CHLORIDE FLUSH 0.9% 10 ML SYRINGE IVP SCH ×2 (08:30→17:04)
[2020-06-14] MEDS: SENNA 8.6 MG TABLET PO SCH (08:40)
[2020-06-14] MEDS: polyethylene glycoL 3350 17 GM PACKET PO SCH (08:40)
[2020-06-14] MEDS: DOCUSATE SODIUM 250 MG CAPSULE PO SCH (08:40)
[2020-06-14] MEDS ORDERED: MAGNESIUM CITRATE 296 ML BOTTLE PO ONE (09:52)
[2020-06-14 10:04] LABS: ESTIMATED AVERAGE GLUCOSE 137 mg/dL (70-100); HEMOGLOBIN A1c% 6.4 % (4.27-6.07)
[2020-06-14 12:06] LABS: INR 3.7 (0.8-1.2); PT - PROTHROMBIN TIME 38.1 secs (9.9-12.6)
--- NOTE | 2020-06-14 12:12 | PROVIDER PROGRESS NOTE ---
Assessment/Plan - Problem List (1) Persistent pneumonia Assessment/Plan: He continues to have the sensation of shortness of breath and is tachypneic at rest, has to take breaths in the middle of a sentence. He says this feels like it did when he was treated for the recent pneumonia outpatient antibiotics. Will obtain CT chest. Will resume empiric IV antibx. Since he is tachypneic at rest, will admit to inpatient status and treat the new atrial flutter, dyspnea, pneumonia and pleural effusion. (2) Bilateral pleural effusion Assessment/Plan: CT chest pending. Since he is tachypneic at rest, will admit to inpatient status and treat the new atrial flutter, dyspnea, pneumonia and pleural effusion. He may need thoracentesis under ultrasound. (3) New onset atrial flutter Assessment/Plan: I reviewed his old records, he had sinus rhythm in February 2020, he was in A. fib 1 month ago. This is new onset of atrial flutter for him, the RVR has improved on treatment but he has sawtooth waves seen on telemetry. We will obtain an Echo. Follow BNP (4) Dehydration Assessment/Plan: He has very dry oral mucosa, dry tongue, possibly his hoarseness is related to upper airway dryness as well. Continue with gentle IV fluids until LVEF by Echo is known (5) Constipation Qualifiers: Constipation type: unspecified constipation type Qualified Code(s): K59.00 - Constipation, unspecified Assessment/Plan: Patient on his own knows to take in more liquids, wants soup, the nurses are increasing the bowel protocol (6) S/P aortic valve replacement Assessment/Plan: His last echo was approximately 3 months ago, aortic valve function was normal. We will obtain echo now because of new onset of atrial flutter and persistent shortness of breath. (7) FUAD on CPAP Assessment/Plan: Home CPAP device to be used here (8) Supratherapeutic international normalized ratio (INR) Assessment/Plan: Follow INR daily, will resume the Coumadin when INR is 2.5-3.5 (target). (9) Type 2 diabetes mellitus without complication, without long-term current use of insulin Assessment/Plan: Sliding scale insulin coverage, will allow a more liberal diet however as per dietitian advice (10) Mild malnutrition Assessment/Plan: As per dietitian assessment: He has had food intake of less than 50 to 75% of normal in the preceding week, has had a 5% weight loss in the past 3 months and 30 pounds loss in the past 6 months. He has reduced functional capacity due to fatigue and shortness of air as well. - Current Meds Current Meds: Current Medications Generic Name Dose Route Start Last Admin Trade Name Lexie PRN Reason Stop Dose Admin Docusate Sodium 250 - 500 mg 06/14/20 09:00 06/14/20 08:40 Docusate Sodium 250 Mg Capsule PO 250 mg DAILY LINDSEY Administration Finasteride 5 mg 06/14/20 09:00 06/14/20 08:23 Finasteride 5 Mg Tablet PO 5 mg DAILY LINDSEY Administration Insulin Aspart 1 - 9 unit 06/13/20 21:00 06/14/20 11:50 Insulin Aspart 300 Unit/3 Ml Pen SUBQ 1 unit 0800,1200,1700,2100 LINDSEY Administration Protocol Metoprolol Tartrate 75 mg 06/13/20 21:00 06/14/20 08:23 Metoprolol Tartrate 50 Mg Tablet PO 75 mg BID LINDSEY Administration Polyethylene Glycol 17 gm 06/13/20 20:02 06/14/20 08:40 Polyethylene Glycol 3350 17 Gm Packet PO 17 gm DAILY LINDSEY Administration Senna 8.6 - 17.2 mg 06/14/20 09:00 06/14/20 08:40 Senna 8.6 Mg Tablet PO 8.6 mg DAILY LINDSEY Administration Sodium Chloride 10 ml 06/14/20 01:00 06/14/20 08:30 Sodium Chloride Flush 0.9% 10 Ml Syringe IVP 10 ml 0100,0900,1700 LINDSEY Administration Trazodone HCl 100 mg 06/13/20 21:00 06/13/20 21:16 Trazodone 50 Mg Tablet PO 100 mg QPM LINDSEY Administration - Lab Result Fish Bone Diagrams: 06/14/20 05:02 06/14/20 05:02 - Additional Planning My Orders: My Active Orders 06/14/20 12:08 Admit \ Transfer \ Status [RC] .ONCE Subjective - Subjective Patient Reports: Shortness of Breath, Other (R sided pleuritic chest pain has resolved but he is still tachypneic, respiratory rate 28 at rest while talking. Planes of constipation despite taking MOM for the last 3 nights and starting bowel protocol here yesterday.) Objective Vital Signs: Vital Signs - 24 hr 06/13/20 06/13/20 06/13/20 14:01 14:32 15:01 Temperature 36.9 C Heart Rate 150 H 145 H 108 H Heart Rate [ Monitoring electrodes] Respiratory 24 26 H 18 Rate Blood Pressure 124/93 H 119/80 105/64 Blood Pressure [Right Brachial artery] O2 Saturation 94 100 100 06/13/20 06/13/20 06/13/20 15:30 16:08 16:30 Temperature Heart Rate 96 95 96 Heart Rate [ Monitoring electrodes] Respiratory 18 18 16 Rate Blood Pressure 126/64 122/63 117/64 Blood Pressure [Right Brachial artery] O2 Saturation 100 98 100 06/13/20 06/13/20 06/13/20 17:00 17:30 18:00 Temperature 36.5 C Heart Rate 95 96 Heart Rate [ 109 H Monitoring electrodes] Respiratory 16 16 20 Rate Blood Pressure 118/59 L 101/63 Blood Pressure 112/84 H [Right Brachial artery] O2 Saturation 100 100 100 06/13/20 06/13/20 06/13/20 18:44 19:07 21:13 Temperature 36.3 C L Heart Rate Heart Rate [ 66 Monitoring electrodes] Respiratory Rate Blood Pressure 126/91 H Blood Pressure 100/61 [Right Brachial artery] O2 Saturation 100 95 06/13/20 06/13/20 06/14/20 21:17 23:45 05:00 Temperature 36.9 C 36.5 C Heart Rate Heart Rate [ 66 71 Monitoring electrodes] Respiratory 16 20 Rate Blood Pressure 100/61 Blood Pressure 111/59 L 107/64 [Right Brachial artery] O2 Saturation 94 96 06/14/20 06/14/20 06/14/20 08:19 08:21 11:56 Temperature 36.4 C L Heart Rate Heart Rate [ 73 97 Monitoring electrodes] Respiratory 20 26 H 25 H Rate Blood Pressure Blood Pressure 117/69 125/55 L [Right Brachial artery] O2 Saturation 96 100 97 Oxygen O2 Source Room air I&O (Last 24 Hrs): Intake and Output Totals x24h 06/12/20 06/13/20 06/14/20 23:59 23:59 23:59 Intake Total 1206.583 100 Output Total 200 225 Balance 1006.583 -125 General: Alert HEENT: Other (dry mucosa) Neck: Supple Neuro: Alert, Non Focal Cardiovascular: Other (S1-S2 have sharp valve clicks, no murmurs heard) Respiratory: Other (Diffusely diminished breath sounds, no wheezing or rhonchi) Abdomen: Normal bowel sounds, Soft Extremities: No edema, No tenderness/swelling - Results Results: Laboratory Results WBC 11.1 x10^3/uL (4.8-10.8) H 06/14/20 05:02 RBC 4.72 10^6/uL (4.70-6.10) 06/14/20 05:02 Hgb 12.8 g/dL (14.0-18.0) L 06/14/20 05:02 Hct 40.6 % (42.0-52.0) L 06/14/20 05:02 MCV 86.0 fL (80.0-94.0) 06/14/20 05:02 MCH 27.1 pg (27.0-31.0) 06/14/20 05:02 MCHC 31.5 g/dL (32.0-36.0) L 06/14/20 05:02 RDW 15.1 % (12.0-15.0) H 06/14/20 05:02 Plt Count 229 10^3/uL (130-450) 06/14/20 05:02 MPV 8.9 fL (7.4-11.4) 06/14/20 05:02 Neut # (Auto) 8.6 10^3/uL (1.5-6.6) H 06/14/20 05:02 Lymph # (Auto) 0.8 10^3/uL (1.5-3.5) L 06/14/20 05:02 [place] # (Auto) 1.0 10^3/uL (0.0-1.0) 06/14/20 05:02 Eos # (Auto) 0.6 10^3/uL (0.0-0.7) 06/14/20 05:02 Baso # (Auto) 0.0 10^3/uL (0.0-0.1) 06/14/20 05:02 Absolute Nucleated RBC 0.00 x10^3/uL 06/14/20 05:02 Nucleated RBC % 0.0 /100WBC 06/14/20 05:02 PT 38.1 secs (9.9-12.6) H 06/14/20 11:55 INR 3.7 (0.8-1.2) H 06/14/20 11:55 Sodium 135 mmol/L (135-145) 06/14/20 05:02 Potassium 4.3 mmol/L (3.5-5.0) 06/14/20 05:02 Chloride 101 mmol/L (101-111) 06/14/20 05:02 Carbon Dioxide 25 mmol/L (21-32) 06/14/20 05:02 Anion Gap 9.0 (6-13) 06/14/20 05:02 BUN 24 mg/dL (6-20) H 06/14/20 05:02 Creatinine 0.8 mg/dL (0.6-1.2) 06/14/20 05:02 Estimated GFR (MDRD) 93 (>89) 06/14/20 05:02 Glucose 138 mg/dL (70-100) H 06/14/20 05:02 POC Whole Bld Glucose 167 mg/dL (70 - 100) H 06/14/20 11:33 Estimat Average Glucose 137 mg/dL (70-100) H 06/14/20 05:02 Hemoglobin A1c % 6.4 % (4.27-6.07) H 06/14/20 05:02 Calcium 8.7 mg/dL (8.5-10.3) 06/14/20 05:02 Magnesium 1.8 mg/dL (1.7-2.8) 06/14/20 05:02 Total Bilirubin 0.6 mg/dL (0.2-1.0) 06/13/20 14:11 AST 22 IU/L (10-42) 06/13/20 14:11 ALT 36 IU/L (10-60) 06/13/20 14:11 Alkaline Phosphatase 105 IU/L (42-121) 06/13/20 14:11 Troponin I High Sens 41.0 ng/L (2.3-19.7) H* 06/13/20 21:20 B-Natriuretic Peptide 388 pg/mL (5-100) H 06/13/20 14:11 Total Protein 7.7 g/dL (6.7-8.2) 06/13/20 14:11 Albumin 3.4 g/dL (3.2-5.5) 06/13/20 14:11 Globulin 4.3 g/dL (2.1-4.2) H 06/13/20 14:11 Albumin/Globulin Ratio 0.8 (1.0-2.2) L 06/13/20 14:11 Lipase 25 U/L (22-51) 06/13/20 14:11 Nasal Adenovirus (PCR) NOT DETECTED 06/13/20 15:03 Nasal B. parapertussis DNA (PCR) NOT DETECTED 06/13/20 15:03 Nasal Coronavir 229E PCR NOT DETECTED 06/13/20 15:03 Nasal Coronavir HKU1 PCR NOT DETECTED 06/13/20 15:03 Nasal Coronavir NL63 PCR NOT DETECTED 06/13/20 15:03 Nasal Coronavir OC43 PCR NOT DETECTED 06/13/20 15:03 Nasal Enterovir/Rhinovir PCR NOT DETECTED 06/13/20 15:03 Nasal Influenza B PCR NOT DETECTED 06/13/20 15:03 Nasal Influenza A PCR NOT DETECTED 06/13/20 15:03 Nasal Parainfluen 1 PCR NOT DETECTED 06/13/20 15:03 Nasal Parainfluen 2 PCR NOT DETECTED 06/13/20 15:03 Nasal Parainfluen 3 PCR NOT DETECTED 06/13/20 15:03 Nasal Parainfluen 4 PCR NOT DETECTED 06/13/20 15:03 Nasal RSV (PCR) NOT DETECTED 06/13/20 15:03 Nasal B.pertussis DNA PCR NOT DETECTED 06/13/20 15:03 Nasal C.pneumoniae (PCR) NOT DETECTED 06/13/20 15:03 Dre Human Metapneumo PCR NOT DETECTED 06/13/20 15:03 Nasal M.pneumoniae (PCR) NOT DETECTED 06/13/20 15:03 Nasal SARS-CoV-2 (PCR) NOT DETECTED 06/13/20 15:03
[2020-06-14] MEDS: SODIUM CHLORIDE FLUSH 0.9% 10 ML SYRINGE IVP PRN (12:38)
[2020-06-14] MEDS: SODIUM CHLORIDE 0.9% 1,000 ML IV SCH (12:38)
[2020-06-14] MEDS ORDERED: IOVERSOL 320 100 ML VIAL IVP ONE ×2 (14:19→15:46)
--- NOTE | 2020-06-14 15:06 | CT Report ---
PROCEDURE: ANGIO CHEST W/WO INDICATIONS: Pneumonia, pl effusions, Lung CA, pleuritic R CP CONTRAST: IV CONTRAST: Optiray 320 ml: 80 PO CONTRAST: *NO PO CONTRAST TECHNIQUE: After the administration of intravenous contrast, 2 mm thick sections acquired from the pulmonary api xavi to the posterior costophrenic angles. 3-dimensional maximum intensity projection (MIP) coronal a nd sagittal reformats were then acquired through the thorax. For radiation dose reduction, the follow ing was used: automated exposure control, adjustment of mA and/or kV according to patient size. COMPARISON: CT chest 03/07/2020, 06/06/2017 FINDINGS: Image quality: Excellent. Pulmonary arteries: Pulmonary arteries are normal in size, and demonstrate no intraluminal filling d efects to suggest central pulmonary embolism. Lungs and pleura: Moderate left effusion, increased compared to prior exam. Minimal left, unchanged. There are areas of superimposed consolidative opacities identified within the left base. Spiculated m ass in the left upper lobe on series 6 image 133 measures 13 mm AP by 16 mm transverse compared to 10 mm AP by 13 mm transverse. Previous areas of patchy groundglass opacity within the lingula and left lower lobe appear to have improved. However, portions are obscured by overlying fluid. There is a new anterior pleural-based nodule measuring 5 mm on series 6 image 155. There is interval development of a 2 mm nodule in the right upper lobe on series 6 image 97. In addition, an adjacent punctate nodule is present on series 6 image 93. This is also new compared to prior exam. There is a new pleural-bas ed right upper lobe nodule on series 6 image 134 measuring 5 mm. Additional punctate nodules are iden tified within the right lung seen within the right middle lobe on series 6 image 147, 151. 3 mm nodul es present in the right lower lobe on series 6 image 137, new 6 mm right lower lobe nodule, new is pr esent on series 6 image 201. Mediastinum: Heart size is enlarged with minimal pericardial effusion. No mediastinal or hilar xochitl opathy, by size criteria. Scattered subcentimeter mediastinal and hilar nodes are noted, unchanged. T here is unchanged aneurysmal dilation of the ascending thoracic aorta measuring approximately 5.0 cm. Esophagus is normal in caliber, without hiatal hernia. Bones and chest wall: No suspicious bony lesions. Ribs and thoracic spine appear intact throughout. The thyroid is normal. No axillary or supraclavicular adenopathy. Abdomen: Visualized upper abdominal solid organs appear normal in the early arterial phase of enhanc ement. IMPRESSION: 1. Increased size of left pleural effusion with dependent changes suggestive of compressive atelectas is. Areas of underlying mass lesion or infection such as pneumonia cannot be excluded. 2. Interval increase in size of somewhat spiculated left upper lobe nodule, as well as appearance of new nodules in the left upper lobe as well as right lung as described above. Overall appearance is co ncerning for disease progression and continued short interval imaging follow-up is recommended. 3. Unchanged appearance of aneurysmal dilation of the ascending thoracic aorta. Reviewed by: Latonia Parikh MD on 06/14/2020 3:04 PM PDT Approved by: Latonia Parikh MD on 06/14/2020 3:04 PM PDT Station ID: [id number]
[2020-06-14] MEDS ORDERED: AZITHROMYCIN INJ 500 MG in SODIUM CHLORIDE 0.9% 250 ML IV STA (18:06)
[2020-06-14] MEDS ORDERED: polyethylene glycoL 3350 17 GM PACKET PO SCH (19:46)
[2020-06-14] MEDS: cefTRIAXone 1 GM in SODIUM CHLORIDE 0.9% MINIBAG 100 ML IV SCH (19:47)
[2020-06-14] MEDS: ACETAMINOPHEN 325 MG TABLET PO PRN (19:47)
[2020-06-14] MEDS: traZODone 50 MG TABLET PO SCH (21:46)
[2020-06-15] MEDS: SODIUM CHLORIDE FLUSH 0.9% 10 ML SYRINGE IVP SCH ×3 (00:28→18:15)
[2020-06-15] MEDS ORDERED: diltiaZEM INJ 5 MG/ML VIAL IVP ONE (00:47)
[2020-06-15] MEDS ORDERED: diltiaZEM 30 MG TABLET PO SCH (01:00)
[2020-06-15] MEDS ORDERED: diphenhydrAMINE 25 MG CAPSULE PO STA (01:18)
[2020-06-15 05:29] LABS: BASOPHILS # (AUTO) 0.1 10^3/uL (0.0-0.1); BASOPHILS % (AUTO) 0.4 %; EOSINOPHILS # (AUTO) 0.7 10^3/uL (0.0-0.7); EOSINOPHILS % (AUTO) 5.5 %; HCT - HEMATOCRIT 40.9 % (42.0-52.0); LYMPHOCYTES # (AUTO) 0.8 10^3/uL (1.5-3.5); LYMPHOCYTES % (AUTO) 6.8 %; MEAN CORPUSCULAR HEMOGLOBIN 27.6 pg (27.0-31.0); MEAN CORPUSCULAR HGB CONC 31.8 g/dL (32.0-36.0); MEAN CORPUSCULAR VOLUME 86.8 fL (80.0-94.0); MONOCYTES # (AUTO) 1.1 10^3/uL (0.0-1.0); MONOCYTES % (AUTO) 9.5 %; NEUTROPHILS # (AUTO) 9.2 10^3/uL (1.5-6.6); NEUTROPHILS % (AUTO) 77.3 %; PLT - PLATELET COUNT 217 10^3/uL (130-450); RED BLOOD COUNT 4.71 10^6/uL (4.70-6.10); RED CELL DISTRIBUTION WIDTH 15.1 % (12.0-15.0)
[2020-06-15 05:32] LABS: INR 3.9 (0.8-1.2); PT - PROTHROMBIN TIME 40.2 secs (9.9-12.6)
[2020-06-15 05:35] LABS: CALCIUM 8.5 mg/dL (8.5-10.3); MAGNESIUM 1.9 mg/dL (1.7-2.8); POTASSIUM 4.7 mmol/L (3.5-5.0)
[2020-06-15] MEDS: diltiaZEM 30 MG TABLET PO SCH ×3 (05:40→18:20)
[2020-06-15] MEDS: SODIUM CHLORIDE 0.9% 1,000 ML IV SCH ×3 (06:54→22:12)
[2020-06-15] MEDS: INSULIN ASPART 300 UNIT/3 ML PEN SUBQ SCH ×4 (07:43→22:06)
[2020-06-15] MEDS ORDERED: AZITHROMYCIN INJ 250 MG in SODIUM CHLORIDE 0.9% 250 ML IV SCH (09:00)
[2020-06-15] MEDS: cefTRIAXone 1 GM in SODIUM CHLORIDE 0.9% MINIBAG 100 ML IV SCH (09:37)
[2020-06-15] MEDS: DOCUSATE SODIUM 250 MG CAPSULE PO SCH (09:58)
[2020-06-15] MEDS: METOPROLOL TARTRATE 50 MG TABLET PO SCH ×2 (10:00→22:08)
[2020-06-15] MEDS: FINASTERIDE 5 MG TABLET PO SCH (10:04)
[2020-06-15] MEDS: guaiFENesin 600 MG TABLET PO SCH (10:04)
[2020-06-15] MEDS: polyethylene glycoL 3350 17 GM PACKET PO SCH (10:06)
[2020-06-15] MEDS: SENNA 8.6 MG TABLET PO SCH (10:38)
--- NOTE | 2020-06-15 11:13 | PROVIDER PROGRESS NOTE ---
Assessment/Plan - Problem List (1) Persistent pneumonia Assessment/Plan: CT chest did confirm an area of infiltrate on L. Yesterday empiric IV antibiotics were started. He has a cough but no sputum production, nothing to send for culture. Continue with empiric 7 days antibx. Will order Mucinex for pulmonary toilet. We will order incentive spirometry. (2) Bilateral pleural effusion Assessment/Plan: He mainly has a left-sided effusion, moderate in size. I have left a message with his Oncologist, Dr. Joie Cruz at the [facility], and am requesting or DI dept to push the CT chest images to Prov Max, for her to see. Because he is dehydrated clinically, will not use Lasix to manage the pleural effusion. Will plan for thoracentesis. Vitamin K 10 mg IV today, and will follow INR every 12 hours, then thoracentesis can be done when the INR is less than 1.8 approximately. Ultrasound-guided thoracentesis was ordered, possibly to be done tomorrow, I discussed this with the Interventional Radiologist here today (3) History of lung cancer Assessment/Plan: Chest CT scan shows bilateral lung masses, most are enlarged compared to the last CT scan from several months ago. I have left a message with his Oncologist, Dr. Joie Cruz at the [facility] ([phone]), and am requesting our DI dept to push the CT chest images to Prov Max, for Dr Cruz to see. (4) New onset atrial flutter Assessment/Plan: Overnight his Aflutter again had RVR. He got Cardizem IV push and heart rate is 80's today. Cardizem 30 mg orally q6h has now been added scheduled. Continue Coumadin for stroke prophylaxis. (5) Cardiomyopathy Assessment/Plan: The Echo shows a new cardiomyopathy with EF 50%. The last EF was 65% several months ago. 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 This may have contributed to the pleural effusion as well. Continue with meds for rate control. (6) Dehydration Assessment/Plan: Improving, clinically his lips are not dry but his tongue is still dry, his voice is less hoarse. IV hydration also probably helped his constipation, which resolved. Continue with gentle IV hydration. (7) S/P aortic valve replacement Assessment/Plan: Normal function by echo Doppler. (8) FUAD on CPAP Assessment/Plan: His home unit was ordered to use here (9) Supratherapeutic international normalized ratio (INR) Assessment/Plan: INR remains mildly above the goal range of 2.5-3.5, it is 3.9 today, probably persistently elevated because of getting antibiotics. Will order vit K to reverse the elevated INR, in order to proceed with thoracentesis. We will then resume the Coumadin following that. (10) Type 2 diabetes mellitus without complication, without long-term current use of insulin Assessment/Plan: His diet was liberalized to a regular diet, as recommended by the dietitian, because of malnutrition He is on sliding scale insulin coverage for fingerstick glu checks. (11) Mild malnutrition Assessment/Plan: As per dietitian assessment: He has had food intake of less than 50 to 75% of normal in the preceding week, has had a 5% weight loss in the past 3 months and 30 pounds loss in the past 6 months. He has reduced functional capacity due to fatigue and shortness of air as well. 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" (13) Constipation Qualifiers: Constipation type: unspecified constipation type Qualified Code(s): K59.00 - Constipation, unspecified Assessment/Plan: Resolved with large BM today - Current Meds Current Meds: Current Medications Generic Name Dose Route Start Last Admin Trade Name Freq PRN Reason Stop Dose Admin Acetaminophen 650 mg 06/13/20 17:08 06/14/20 19:47 Acetaminophen 325 Mg Tablet PO 650 mg Q4HR PRN Administration Pain 1 to 4 Diltiazem HCl 30 mg 06/15/20 01:19 06/15/20 05:40 Diltiazem 30 Mg Tablet PO 30 mg Q6HR LINDSEY Administration Docusate Sodium 250 - 500 mg 06/14/20 09:00 06/15/20 09:58 Docusate Sodium 250 Mg Capsule PO 250 mg DAILY LINDSEY Administration Finasteride 5 mg 06/14/20 09:00 06/15/20 10:04 Finasteride 5 Mg Tablet PO 5 mg DAILY LINDSEY Administration Guaifenesin 600 mg 06/15/20 09:00 06/15/20 10:04 Guaifenesin 600 Mg Tablet PO 600 mg DAILY LINDSEY Administration Sodium Chloride 1,000 mls @ 83.333 mls/hr 06/14/20 13:00 06/15/20 06:54 Normal Saline 0.9% IV 83.333 mls/hr .Q12H LINDSEY Administration Azithromycin 250 mg/ Sodium 250 mls @ 250 mls/hr 06/15/20 09:00 06/15/20 10:17 Chloride IV 06/18/20 23:00 250 mls/hr DAILY LINDSEY Administration Insulin Aspart 1 - 9 unit 06/13/20 21:00 06/15/20 07:43 Insulin Aspart 300 Unit/3 Ml Pen SUBQ Not Given 0800,1200,1700,2100 [facility] Protocol Metoprolol Tartrate 75 mg 06/13/20 21:00 06/15/20 10:00 Metoprolol Tartrate 50 Mg Tablet PO 75 mg BID LINDSEY Administration Polyethylene Glycol 17 gm 06/13/20 20:02 06/15/20 10:06 Polyethylene Glycol 3350 17 Gm Packet PO Not Given DAILY LINDSEY Senna 8.6 - 17.2 mg 06/14/20 09:00 06/15/20 10:38 Senna 8.6 Mg Tablet PO 8.6 mg DAILY LINDSEY Administration Sodium Chloride 10 ml 06/13/20 17:08 06/14/20 12:38 Sodium Chloride Flush 0.9% 10 Ml Syringe IVP 10 ml PRN PRN Administration NEEDED PER PROVIDER ORDERS Sodium Chloride 10 ml 06/14/20 01:00 06/15/20 10:08 Sodium Chloride Flush 0.9% 10 Ml Syringe IVP Not Given 0100,0900,1700 LINDSEY Trazodone HCl 100 mg 06/13/20 21:00 06/14/20 21:46 Trazodone 50 Mg Tablet PO 100 mg QPM LINDSEY Administration - Lab Result Fish Bone Diagrams: 06/15/20 05:20 06/15/20 05:20 - Additional Planning My Orders: My Active Orders 06/14/20 12:13 Echo Transthoracic Complete [ECHO] Routine 06/14/20 13:00 Sodium Chloride 0.9% [Normal Saline 0.9%] 1,000 ml IV 83.333 mls/hr 06/14/20 Dinner Regular Diet [DIET] 06/15/20 09:00 Azithromycin Inj [Zithromax Inj] 250 mg Sodium Chloride 0.9% [Normal Saline 0.9%] 250 ml IV DAILY guaiFENesin [Mucinex] 600 mg PO DAILY 06/15/20 09:20 IS [Incentive Spirometry - RT] [RC] TID 06/15/20 11:08 Phytonadione Inj (Adult) [Vitamin K (Adult)] 10 mg Sodium Chloride 0.9% [Normal Saline 0.9%] 50 ml IV ONCE 06/15/20 11:30 cefTRIAXone [Rocephin] 1 gm Sodium Chloride 0.9% Minibag [Normal Saline 0.9% Minibag] 100 ml IV ONCE 06/15/20 18:00 WHOLE BLOOD PT/INR [COAG] Timed 06/16/20 05:00 BNP - B-NATRIURETIC PEPTIDE [IAI] DAILYLAB PT WITH INR [COAG] DAILYLAB 06/16/20 09:00 cefTRIAXone [Rocephin] 2 gm Sodium Chloride 0.9% Minibag [Normal Saline 0.9% Minibag] 100 ml IV DAILY 06/17/20 05:00 PT WITH INR [COAG] DAILYLAB 06/18/20 05:00 PT WITH INR [COAG] DAILYLAB Subjective - Subjective Patient Reports: Shortness of Breath, Other (No longer constipated; he had a very large BM at 0400) Objective Vital Signs: Vital Signs - 24 hr 06/14/20 06/14/20 06/14/20 11:56 12:42 16:19 Temperature 36.4 C L 36.5 C Heart Rate [ 69 70 Monitoring electrodes] Respiratory 25 H 24 22 Rate Blood Pressure Blood Pressure 114/65 114/57 L [Right Brachial artery] O2 Saturation 97 97 96 06/14/20 06/14/20 06/14/20 19:52 21:40 21:45 Temperature 36.5 C Heart Rate [ 71 77 73 Monitoring electrodes] Respiratory 20 Rate Blood Pressure Blood Pressure 125/64 99/58 L 103/59 L [Right Brachial artery] O2 Saturation 96 06/15/20 06/15/20 06/15/20 00:32 00:56 01:00 Temperature 36.4 C L Heart Rate [ 148 H 118 H Monitoring electrodes] Respiratory 20 Rate Blood Pressure 128/83 H Blood Pressure 124/81 H 124/65 [Right Brachial artery] O2 Saturation 98 06/15/20 06/15/20 06/15/20 01:05 01:10 01:15 Temperature Heart Rate [ 107 H 107 H Monitoring electrodes] Respiratory Rate Blood Pressure Blood Pressure 117/59 L 135/54 H 123/69 [Right Brachial artery] O2 Saturation 06/15/20 06/15/20 06/15/20 01:30 01:45 02:00 Temperature Heart Rate [ 94 94 94 Monitoring electrodes] Respiratory Rate Blood Pressure Blood Pressure 132/55 H 130/54 L 115/56 L [Right Brachial artery] O2 Saturation 06/15/20 06/15/20 06/15/20 05:00 05:40 07:25 Temperature 36.7 C 36.7 C Heart Rate [ 93 55 L Monitoring electrodes] Respiratory 24 18 Rate Blood Pressure 115/54 L Blood Pressure 120/58 L 118/57 L [Right Brachial artery] O2 Saturation 92 92 06/15/20 10:00 Temperature Heart Rate [ Monitoring electrodes] Respiratory Rate Blood Pressure 118/57 L Blood Pressure [Right Brachial artery] O2 Saturation Oxygen O2 Source Room air I&O (Last 24 Hrs): Intake and Output Totals x24h 06/13/20 06/14/20 06/15/20 23:59 23:59 23:59 Intake Total 9001.841 5364.055 1196.945 Output Total 200 525 Balance 1006.583 161.229 4707.945 General: Alert, Oriented x3, Other (Tachypneic when speaking) HEENT: Other (Moist lips, dry tongue, hoarse voice) Neck: Supple, No JVD Neuro: Alert, Non Focal Cardiovascular: Regular rate, Other (Call valve clicks) Respiratory: Other (Diminished breath sounds, no wheezes.) Abdomen: Soft Extremities: No edema - Results Results: Laboratory Results WBC 12.0 x10^3/uL (4.8-10.8) H 06/15/20 05:20 RBC 4.71 10^6/uL (4.70-6.10) 06/15/20 05:20 Hgb 13.0 g/dL (14.0-18.0) L 06/15/20 05:20 Hct 40.9 % (42.0-52.0) L 06/15/20 05:20 MCV 86.8 fL (80.0-94.0) 06/15/20 05:20 MCH 27.6 pg (27.0-31.0) 06/15/20 05:20 MCHC 31.8 g/dL (32.0-36.0) L 06/15/20 05:20 RDW 15.1 % (12.0-15.0) H 06/15/20 05:20 Plt Count 217 10^3/uL (130-450) 06/15/20 05:20 MPV 9.0 fL (7.4-11.4) 06/15/20 05:20 Neut # (Auto) 9.2 10^3/uL (1.5-6.6) H 06/15/20 05:20 Lymph # (Auto) 0.8 10^3/uL (1.5-3.5) L 06/15/20 05:20 Mchenry # (Auto) 1.1 10^3/uL (0.0-1.0) H 06/15/20 05:20 Eos # (Auto) 0.7 10^3/uL (0.0-0.7) 06/15/20 05:20 Baso # (Auto) 0.1 10^3/uL (0.0-0.1) 06/15/20 05:20 Absolute Nucleated RBC 0.00 x10^3/uL 06/15/20 05:20 Nucleated RBC % 0.0 /100WBC 06/15/20 05:20 PT 40.2 secs (9.9-12.6) H 06/15/20 05:20 INR 3.9 (0.8-1.2) H 06/15/20 05:20 Sodium 136 mmol/L (135-145) 06/15/20 05:20 Potassium 4.7 mmol/L (3.5-5.0) 06/15/20 05:20 Chloride 98 mmol/L (101-111) L 06/15/20 05:20 Carbon Dioxide 29 mmol/L (21-32) 06/15/20 05:20 Anion Gap 9.0 (6-13) 06/15/20 05:20 BUN 21 mg/dL (6-20) H 06/15/20 05:20 Creatinine 1.0 mg/dL (0.6-1.2) 06/15/20 05:20 Estimated GFR (MDRD) 72 (>89) L 06/15/20 05:20 Glucose 142 mg/dL (70-100) H 06/15/20 05:20 POC Whole Bld Glucose 198 mg/dL (70 - 100) H 06/15/20 11:03 Estimat Average Glucose 137 mg/dL (70-100) H 06/14/20 05:02 Hemoglobin A1c % 6.4 % (4.27-6.07) H 06/14/20 05:02 Calcium 8.5 mg/dL (8.5-10.3) 06/15/20 05:20 Magnesium 1.9 mg/dL (1.7-2.8) 06/15/20 05:20 Total Bilirubin 0.6 mg/dL (0.2-1.0) 06/13/20 14:11 AST 22 IU/L (10-42) 06/13/20 14:11 ALT 36 IU/L (10-60) 06/13/20 14:11 Alkaline Phosphatase 105 IU/L (42-121) 06/13/20 14:11 Troponin I High Sens 41.0 ng/L (2.3-19.7) H* 06/13/20 21:20 B-Natriuretic Peptide 347 pg/mL (5-100) H 06/15/20 05:20 Total Protein 7.7 g/dL (6.7-8.2) 06/13/20 14:11 Albumin 3.4 g/dL (3.2-5.5) 06/13/20 14:11 Globulin 4.3 g/dL (2.1-4.2) H 06/13/20 14:11 Albumin/Globulin Ratio 0.8 (1.0-2.2) L 06/13/20 14:11 Lipase 25 U/L (22-51) 06/13/20 14:11 Nasal Adenovirus (PCR) NOT DETECTED 06/13/20 15:03 Nasal B. parapertussis DNA (PCR) NOT DETECTED 06/13/20 15:03 Nasal Coronavir 229E PCR NOT DETECTED 06/13/20 15:03 Nasal Coronavir HKU1 PCR NOT DETECTED 06/13/20 15:03 Nasal Coronavir NL63 PCR NOT DETECTED 06/13/20 15:03 Nasal Coronavir OC43 PCR NOT DETECTED 06/13/20 15:03 Nasal Enterovir/Rhinovir PCR NOT DETECTED 06/13/20 15:03 Nasal Influenza B PCR NOT DETECTED 06/13/20 15:03 Nasal Influenza A PCR NOT DETECTED 06/13/20 15:03 Nasal Parainfluen 1 PCR NOT DETECTED 06/13/20 15:03 Nasal Parainfluen 2 PCR NOT DETECTED 06/13/20 15:03 Nasal Parainfluen 3 PCR NOT DETECTED 06/13/20 15:03 Nasal Parainfluen 4 PCR NOT DETECTED 06/13/20 15:03 Nasal RSV (PCR) NOT DETECTED 06/13/20 15:03 Nasal B.pertussis DNA PCR NOT DETECTED 06/13/20 15:03 Nasal C.pneumoniae (PCR) NOT DETECTED 06/13/20 15:03 Dre Human Metapneumo PCR NOT DETECTED 06/13/20 15:03 Nasal M.pneumoniae (PCR) NOT DETECTED 06/13/20 15:03 Nasal SARS-CoV-2 (PCR) NOT DETECTED 06/13/20 15:03
[2020-06-15] MEDS ORDERED: cefTRIAXone 1 GM in SODIUM CHLORIDE 0.9% MINIBAG 100 ML IV ONE (11:30)
[2020-06-15] MEDS: PHYTONADIONE INJ (ADULT) 10 MG in SODIUM CHLORIDE 0.9% 50 ML IV SCH ×2 (11:41→11:50)
[2020-06-15] MEDS ORDERED: PHYTONADIONE 10 MG/ML AMP PO ONE ×2 (15:18→19:00)
[2020-06-15] MEDS ORDERED: CHERRY SYRUP 10 ML UDC PO ONE ×2 (15:18→18:39)
[2020-06-15] MEDS: traZODone 50 MG TABLET PO SCH (22:07)
[2020-06-15] MEDS: ACETAMINOPHEN 325 MG TABLET PO PRN (22:07)
[2020-06-16] MEDS: diltiaZEM 30 MG TABLET PO SCH ×5 (00:08→23:41)
[2020-06-16] MEDS: SODIUM CHLORIDE FLUSH 0.9% 10 ML SYRINGE IVP SCH ×5 (00:11→23:42)
[2020-06-16 04:44] LABS: BASOPHILS # (AUTO) 0.1 10^3/uL (0.0-0.1); BASOPHILS % (AUTO) 0.5 %; EOSINOPHILS # (AUTO) 0.6 10^3/uL (0.0-0.7); EOSINOPHILS % (AUTO) 5.3 %; HCT - HEMATOCRIT 38.4 % (42.0-52.0); LYMPHOCYTES # (AUTO) 0.6 10^3/uL (1.5-3.5); LYMPHOCYTES % (AUTO) 4.8 %; MEAN CORPUSCULAR HEMOGLOBIN 27.4 pg (27.0-31.0); MEAN CORPUSCULAR HGB CONC 31.3 g/dL (32.0-36.0); MEAN CORPUSCULAR VOLUME 87.7 fL (80.0-94.0); MEAN PLATELET VOLUME 9.2 fL (7.4-11.4); MONOCYTES % (AUTO) 8.6 %; NEUTROPHILS # (AUTO) 9.2 10^3/uL (1.5-6.6); NEUTROPHILS % (AUTO) 80.1 %; PLT - PLATELET COUNT 203 10^3/uL (130-450); RED BLOOD COUNT 4.38 10^6/uL (4.70-6.10); RED CELL DISTRIBUTION WIDTH 15.4 % (12.0-15.0); WHITE BLOOD COUNT 11.5 x10^3/uL (4.8-10.8)
[2020-06-16 04:49] LABS: INR 1.3 (0.8-1.2); PT - PROTHROMBIN TIME 14.2 secs (9.9-12.6)
[2020-06-16 04:55] LABS: CALCIUM 7.8 mg/dL (8.5-10.3); CREATININE 0.7 mg/dL (0.6-1.2); MAGNESIUM 1.9 mg/dL (1.7-2.8); POTASSIUM 4.3 mmol/L (3.5-5.0)
[2020-06-16] MEDS: INSULIN ASPART 300 UNIT/3 ML PEN SUBQ SCH ×4 (07:38→20:54)
[2020-06-16] MEDS: DOCUSATE SODIUM 250 MG CAPSULE PO SCH (08:29)
[2020-06-16] MEDS ORDERED: MORPHINE 2 MG/ML CARPUJECT IVP ONE (08:29)
[2020-06-16] MEDS: guaiFENesin 600 MG TABLET PO SCH (08:30)
[2020-06-16] MEDS: METOPROLOL TARTRATE 50 MG TABLET PO SCH ×2 (08:30→20:56)
[2020-06-16] MEDS: FINASTERIDE 5 MG TABLET PO SCH (08:30)
[2020-06-16] MEDS: AZITHROMYCIN 250 MG TABLET PO SCH (08:30)
[2020-06-16] MEDS: cefTRIAXone 2 GM in SODIUM CHLORIDE 0.9% MINIBAG 100 ML IV SCH (08:31)
[2020-06-16] MEDS: SENNA 8.6 MG TABLET PO SCH (08:32)
[2020-06-16] MEDS: polyethylene glycoL 3350 17 GM PACKET PO SCH (08:32)
[2020-06-16] MEDS ORDERED: SODIUM CHLORIDE 0.9% 1,000 ML IV SCH (09:21)
[2020-06-16] MEDS ORDERED: MORPHINE 2 MG/ML CARPUJECT IVP STA (13:27)
--- NOTE | 2020-06-16 13:40 | XRAY Report ---
PROCEDURE: Post Thoracentesis 1V CXR INDICATIONS: L thoracentesis done TECHNIQUE: One view of the chest was acquired. COMPARISON: CT dated 06/14/2020, chest radiograph dated 06/13/2020 FINDINGS: Surgical changes and devices: Multiple median sternotomy wires are present.. Lungs and pleura: Stable appearance of small right pleural effusion. Mild decrease in size of left pl eural effusion. No pneumothorax seen. Patchy bibasilar opacities favored to represent compressive ate lectasis. No new focal airspace disease identified. Mediastinum: Mediastinal contours appear stable. Heart size is stable. Bones and chest wall: No suspicious bony lesions. Overlying soft tissues appear unremarkable. IMPRESSION: Status post left-sided thoracentesis. Decreased size of left pleural effusion. No pneumothorax visual ized. Reviewed by: Jaskaran Johnson MD on 06/16/2020 1:38 PM PDT Approved by: Jaskaran Johnson MD on 06/16/2020 1:38 PM PDT Station ID: [id number]
[2020-06-16 15:11] LABS: BF CLARITY BLOODY; BF SOURCE PLEURAL; CC,BF RBC 86000 /mm^3; CC,BF WBC 613 /mm^3
[2020-06-16 15:12] LABS: BF COLOR BLOODY
--- NOTE | 2020-06-16 15:15 | PROVIDER PROGRESS NOTE ---
Assessment/Plan - Problem List (1) Persistent pneumonia Assessment/Plan: Empiric IV antibiotics continue. He made no sputum to send for culture. Blood cultures are negative to date. Mucinex and IS were ordered for increasing pulmonary toilet (2) Bilateral pleural effusion Assessment/Plan: He underwent thoracentesis at 1300 today and 2 L of bloody fluid was removed. His post-thoracentesis chest x-ray showed a decrease in the left pleural effusion but still small bilateral pleural effusions are present. There was no pneumothorax. Thoracentesis helped him take a deeper inspiration, he said, but he also had left upper anterior pleuritic chest pain develop for time after the thoracentesis. Pleural fluid was sent for pH, LDH, glucose, cell count, Gram stain, culture and cytology. Will resume his Coumadin. (3) History of lung cancer Assessment/Plan: He underwent right lower lobe lobectomy 1/2 years ago. There are masses in both apices, both have increased in size since February 2020. He is followed at the [facility] by Dr. Joie Osei and I gave her a message yesterday, via her RN, regarding his hospitalization. Await the pleural fluid for work-up of malignancy. (4) New onset atrial flutter Assessment/Plan: The heart rate has been under control ever since oral Cardizem scheduled has been prescribed. The INR was excessive and yesterday he got vitamin K to normalize the INR in order to undergo thoracentesis. INR this morning was 1.3. Coumadin will now be resumed since thoracentesis is done. No bolus dose or bridging, and will allow the INR to increase over several days, into the therapeutic range, since he just had this invasive procedure today. 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 fib with bouts of RVR, over the past 1 month. Goal is for rate control, this has been accomplished over the past 48 hours on his new meds. (6) Dehydration Assessment/Plan: Resolving. Will stop iv hydration tomorrow morning, after there is less chance of a dropping BP after thoracentesis. (7) S/P aortic valve replacement Assessment/Plan: Arctic valve function is normal, by echo done this admission. We will resume his Coumadin, as described above. Target INR is 2.5-3. (8) FUAD on CPAP Assessment/Plan: Continue CPAP use while here. (9) Type 2 diabetes mellitus without complication, without long-term current use of insulin Assessment/Plan: His Diabetic diet was liberalized by Monitor Tech to a Regular diet since he eats very little, he is getting sliding scale insulin coverage (10) Mild malnutrition Assessment/Plan: As per the Monitor [employer] evaluation several days ago. 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 This is being "watched" by his registered nurse ambulatory, no surgery has been proposed to him (12) Constipation Qualifiers: Constipation type: unspecified constipation type Qualified Code(s): K59.00 - Constipation, unspecified Assessment/Plan: Resolved, after he had large BM 2 days ago. (13) Supratherapeutic international normalized ratio (INR) Assessment/Plan: Resolved with vit K ordered yesterday, to correct INR, in order to allow thoracentesis. - Current Meds Current Meds: Current Medications Generic Name Dose Route Start Last Admin Trade Name Freq PRN Reason Stop Dose Admin Acetaminophen 650 mg 06/13/20 17:08 06/15/20 22:07 Acetaminophen 325 Mg Tablet PO 650 mg Q4HR PRN Administration Pain 1 to 4 Azithromycin 250 mg 06/16/20 09:00 06/16/20 08:30 Azithromycin 250 Mg Tablet PO 06/18/20 23:00 250 mg DAILY LINDSEY Administration Diltiazem HCl 30 mg 06/15/20 01:19 06/16/20 11:31 Diltiazem 30 Mg Tablet PO 30 mg Q6HR LINDSEY Administration Docusate Sodium 250 - 500 mg 06/14/20 09:00 06/16/20 08:29 Docusate Sodium 250 Mg Capsule PO 250 mg DAILY LINDSEY Administration Finasteride 5 mg 06/14/20 09:00 06/16/20 08:30 Finasteride 5 Mg Tablet PO 5 mg DAILY LINDSEY Administration Guaifenesin 600 mg 06/15/20 09:00 06/16/20 08:30 Guaifenesin 600 Mg Tablet PO 600 mg DAILY LINDSEY Administration Ceftriaxone Sodium 2 gm/ 100 mls @ 200 mls/hr 06/16/20 09:00 06/16/20 09:29 Sodium Chloride IV Infused DAILY LINDSEY Infusion Sodium Chloride 1,000 mls @ 40 mls/hr 06/16/20 09:21 06/16/20 10:05 Normal Saline 0.9% IV 40 mls/hr .Q25H LINDSEY Administration Insulin Aspart 1 - 9 unit 06/13/20 21:00 06/16/20 11:34 Insulin Aspart 300 Unit/3 Ml Pen SUBQ 3 unit 0800,1200,1700,2100 LINDSEY Administration Protocol Metoprolol Tartrate 75 mg 06/13/20 21:00 06/16/20 08:30 Metoprolol Tartrate 50 Mg Tablet PO 75 mg BID LINDSEY Administration Polyethylene Glycol 17 gm 06/13/20 20:02 06/16/20 08:32 Polyethylene Glycol 3350 17 Gm Packet PO Not Given DAILY LINDSEY Senna 8.6 - 17.2 mg 06/14/20 09:00 06/16/20 08:32 Senna 8.6 Mg Tablet PO Not Given DAILY LINDSEY Sodium Chloride 10 ml 06/13/20 17:08 06/14/20 12:38 Sodium Chloride Flush 0.9% 10 Ml Syringe IVP 10 ml PRN PRN Administration NEEDED PER PROVIDER ORDERS Sodium Chloride 10 ml 06/14/20 01:00 06/16/20 08:32 Sodium Chloride Flush 0.9% 10 Ml Syringe IVP 10 ml 0100,0900,1700 LINDSEY Administration Trazodone HCl 100 mg 06/13/20 21:00 06/15/20 22:07 Trazodone 50 Mg Tablet PO 100 mg QPM LINDSEY Administration - Lab Result Fish Bone Diagrams: 06/16/20 04:17 06/16/20 04:17 - Additional Planning My Orders: My Active Orders 06/16/20 08:19 Thoracentesis Puncture [US] Routine 06/16/20 09:00 Azithromycin [Zithromax] 250 mg PO DAILY cefTRIAXone [Rocephin] 2 gm Sodium Chloride 0.9% Minibag [Normal Saline 0.9% Minibag] 100 ml IV DAILY 06/16/20 09:21 Sodium Chloride 0.9% [Normal Saline 0.9%] 1,000 ml IV 40 mls/hr 06/16/20 Lunch Regular Diet [DIET] 06/16/20 13:17 Miscellaneous Laboratory Order [LAB] Urgent 06/16/20 13:30 CELL COUNT, BF [BF] Stat 06/16/20 14:04 CUL,BODY FLUID(AEROBIC) [RM] Routine MISC TEST QUEST REFRIG [REFLAB] Routine MISC TEST QUEST REFRIG [REFLAB] Routine MISC TEST QUEST REFRIG [REFLAB] Routine 06/16/20 14:54 Miscellaneous Laboratory Order [LAB] Urgent 06/16/20 16:00 Warfarin [Coumadin] 10 mg PO 1600 06/17/20 05:00 PT WITH INR [COAG] DAILYLAB 06/17/20 08:00 Multivitamin W/Minerals [Theragran M] 1 tab PO DAILYWM 06/18/20 05:00 PT WITH INR [COAG] DAILYLAB Subjective - Subjective Patient Reports: Shortness of Breath (Feels "panicky" and SOB. I ordered iv Morphine 1 mg which helped.) Objective Vital Signs: Vital Signs - 24 hr 06/15/20 06/15/20 06/15/20 16:06 18:20 20:18 Temperature 36.7 C 37.0 C Heart Rate [ 69 Brachial] Heart Rate [ 68 Monitoring electrodes] Respiratory 24 24 Rate Blood Pressure 108/65 Blood Pressure 101/67 113/57 L [Right Brachial artery] O2 Saturation 94 91 L 06/15/20 06/15/20 06/16/20 20:25 22:08 00:05 Temperature 36.6 C Heart Rate [ 65 Brachial] Heart Rate [ Monitoring electrodes] Respiratory 30 H Rate Blood Pressure 114/59 L Blood Pressure 94/61 [Right Brachial artery] O2 Saturation 95 87 L 06/16/20 06/16/20 06/16/20 00:08 00:15 04:55 Temperature 36.6 C Heart Rate [ 68 Brachial] Heart Rate [ Monitoring electrodes] Respiratory 24 Rate Blood Pressure 94/61 Blood Pressure 120/64 [Right Brachial artery] O2 Saturation 94 98 06/16/20 06/16/20 06/16/20 05:06 05:08 07:38 Temperature 36.6 C 36.4 C L Heart Rate [ 70 70 Brachial] Heart Rate [ Monitoring electrodes] Respiratory 24 24 Rate Blood Pressure 104/67 Blood Pressure 104/67 118/63 [Right Brachial artery] O2 Saturation 93 94 06/16/20 06/16/20 06/16/20 08:30 11:19 11:31 Temperature 36.4 C L Heart Rate [ 68 Brachial] Heart Rate [ Monitoring electrodes] Respiratory 20 Rate Blood Pressure 118/63 109/61 Blood Pressure 100/62 [Right Brachial artery] O2 Saturation 95 06/16/20 13:25 Temperature Heart Rate [ 71 Brachial] Heart Rate [ Monitoring electrodes] Respiratory 21 Rate Blood Pressure Blood Pressure 126/86 H [Right Brachial artery] O2 Saturation 100 Oxygen O2 Source Nasal cannula I&O (Last 24 Hrs): Intake and Output Totals x24h 06/14/20 06/15/20 06/16/20 23:59 23:59 23:59 Intake Total 5886.700 5313.945 2032.885 Output Total 525 250 500 Balance 591.708 6159.945 1532.885 General: Alert, Oriented x3, Other (MAle pattern baldness. Still taking shallow rapid breaths.) HEENT: Mucous membr. moist/pink Neck: Supple, No JVD Neuro: Alert, Non Focal Cardiovascular: Regular rate, Other (Normal mechanical valve clicks) Respiratory: Other (Improved L sided araetion after thoracentesis, R clear) Abdomen: Soft Extremities: No edema - Results Results: Laboratory Results WBC 11.5 x10^3/uL (4.8-10.8) H 06/16/20 04:17 RBC 4.38 10^6/uL (4.70-6.10) L 06/16/20 04:17 Hgb 12.0 g/dL (14.0-18.0) L 06/16/20 04:17 Hct 38.4 % (42.0-52.0) L 06/16/20 04:17 MCV 87.7 fL (80.0-94.0) 06/16/20 04:17 MCH 27.4 pg (27.0-31.0) 06/16/20 04:17 MCHC 31.3 g/dL (32.0-36.0) L 06/16/20 04:17 RDW 15.4 % (12.0-15.0) H 06/16/20 04:17 Plt Count 203 10^3/uL (130-450) 06/16/20 04:17 MPV 9.2 fL (7.4-11.4) 06/16/20 04:17 Neut # (Auto) 9.2 10^3/uL (1.5-6.6) H 06/16/20 04:17 Lymph # (Auto) 0.6 10^3/uL (1.5-3.5) L 06/16/20 04:17 Gaston # (Auto) 1.0 10^3/uL (0.0-1.0) 06/16/20 04:17 Eos # (Auto) 0.6 10^3/uL (0.0-0.7) 06/16/20 04:17 Baso # (Auto) 0.1 10^3/uL (0.0-0.1) 06/16/20 04:17 Absolute Nucleated RBC 0.00 x10^3/uL 06/16/20 04:17 Nucleated RBC % 0.0 /100WBC 06/16/20 04:17 PT 14.2 secs (9.9-12.6) H 06/16/20 04:17 INR 1.3 (0.8-1.2) H 06/16/20 04:17 Whole Blood INR 1.7 (0.8-1.2) H 06/15/20 18:47 Sodium 136 mmol/L (135-145) 06/16/20 04:17 Potassium 4.3 mmol/L (3.5-5.0) 06/16/20 04:17 Chloride 103 mmol/L (101-111) 06/16/20 04:17 Carbon Dioxide 25 mmol/L (21-32) 06/16/20 04:17 Anion Gap 8.0 (6-13) 06/16/20 04:17 BUN 19 mg/dL (6-20) 06/16/20 04:17 Creatinine 0.7 mg/dL (0.6-1.2) 06/16/20 04:17 Estimated GFR (MDRD) 109 (>89) 06/16/20 04:17 Glucose 126 mg/dL (70-100) H 06/16/20 04:17 POC Whole Bld Glucose 201 mg/dL (70 - 100) H 06/16/20 10:52 Estimat Average Glucose 137 mg/dL (70-100) H 06/14/20 05:02 Hemoglobin A1c % 6.4 % (4.27-6.07) H 06/14/20 05:02 Calcium 7.8 mg/dL (8.5-10.3) L 06/16/20 04:17 Magnesium 1.9 mg/dL (1.7-2.8) 06/16/20 04:17 Total Bilirubin 0.6 mg/dL (0.2-1.0) 06/13/20 14:11 AST 22 IU/L (10-42) 06/13/20 14:11 ALT 36 IU/L (10-60) 06/13/20 14:11 Alkaline Phosphatase 105 IU/L (42-121) 06/13/20 14:11 Troponin I High Sens 41.0 ng/L (2.3-19.7) H* 06/13/20 21:20 B-Natriuretic Peptide 496 pg/mL (5-100) H 06/16/20 04:17 Total Protein 7.7 g/dL (6.7-8.2) 06/13/20 14:11 Albumin 3.4 g/dL (3.2-5.5) 06/13/20 14:11 Globulin 4.3 g/dL (2.1-4.2) H 06/13/20 14:11 Albumin/Globulin Ratio 0.8 (1.0-2.2) L 06/13/20 14:11 Lipase 25 U/L (22-51) 06/13/20 14:11 Fluid Source PLEURAL 06/16/20 13:30 Fluid Color BLOODY 06/16/20 13:30 Fluid Clarity BLOODY 06/16/20 13:30 Fluid WBC 613 /mm^3 06/16/20 13:30 Fluid RBC 86809 /mm^3 06/16/20 13:30 Nasal Adenovirus (PCR) NOT DETECTED 06/13/20 15:03 Nasal B. parapertussis DNA (PCR) NOT DETECTED 06/13/20 15:03 Nasal Coronavir 229E PCR NOT DETECTED 06/13/20 15:03 Nasal Coronavir HKU1 PCR NOT DETECTED 06/13/20 15:03 Nasal Coronavir NL63 PCR NOT DETECTED 06/13/20 15:03 Nasal Coronavir OC43 PCR NOT DETECTED 06/13/20 15:03 Nasal Enterovir/Rhinovir PCR NOT DETECTED 06/13/20 15:03 Nasal Influenza B PCR NOT DETECTED 06/13/20 15:03 Nasal Influenza A PCR NOT DETECTED 06/13/20 15:03 Nasal Parainfluen 1 PCR NOT DETECTED 06/13/20 15:03 Nasal Parainfluen 2 PCR NOT DETECTED 06/13/20 15:03 Nasal Parainfluen 3 PCR NOT DETECTED 06/13/20 15:03 Nasal Parainfluen 4 PCR NOT DETECTED 06/13/20 15:03 Nasal RSV (PCR) NOT DETECTED 06/13/20 15:03 Nasal B.pertussis DNA PCR NOT DETECTED 06/13/20 15:03 Nasal C.pneumoniae (PCR) NOT DETECTED 06/13/20 15:03 Dre Human Metapneumo PCR NOT DETECTED 06/13/20 15:03 Nasal M.pneumoniae (PCR) NOT DETECTED 06/13/20 15:03 Nasal SARS-CoV-2 (PCR) NOT DETECTED 06/13/20 15:03
[2020-06-16] MEDS: WARFARIN 5 MG TABLET PO SCH (15:46)
[2020-06-16 16:14] LABS: MESOTHELIAL %, BF 0 %
--- NOTE | 2020-06-16 17:51 | Ultrasound Report ---
PROCEDURE: Thoracentesis Puncture INDICATIONS: L pleural effusion TECHNIQUE: The indications, alternatives, benefits, risks, and complications of the procedure were explained to the patient. Written informed consent was obtained and placed in the chart. The chest was examined sonographically, and an appropriate site was chosen for thoracentesis. The skin was prepared and herbert ped in the usual sterile fashion, and 1% lidocaine was infiltrated from the skin down through the ple ural surface. A 19-gauge catheter-covered needle was then introduced into the pleural space, the cat heter was advanced and the needle was withdrawn, and thereafter pleural fluid was aspirated. The cat heter was then removed and a dressing was applied. COMPARISON: CT chest dated 06/14/2020 and chest radiograph dated 06/13/2020. FINDINGS: Access site: Left hemithorax. Needle: One-Step centesis catheter with introducer needle. Fluid volume and description: Approximately 2 L of dark serosanguineous pleural fluid. Fluid sent for diagnostic testing: Findings were discussed with the ordering physician. Some of the effusion will be sent for testing at the discretion of the clinical team. Medications: 1% lidocaine for local anaesthesia. Complications: None; post-procedural chest radiograph is pending to assess for pneumothorax. IMPRESSION: Successful ultrasound-guided left sided thoracentesis. Reviewed by: Jaskaran Johnson MD on 06/16/2020 5:49 PM PDT Approved by: Jaskaran Johnson MD on 06/16/2020 5:49 PM PDT Station ID: [id number]
[2020-06-16] MEDS: traZODone 50 MG TABLET PO SCH (20:55)
[2020-06-17 04:43] LABS: INR 1.4 (0.8-1.2); PT - PROTHROMBIN TIME 15.4 secs (9.9-12.6)
[2020-06-17] MEDS: diltiaZEM 30 MG TABLET PO SCH (05:47)
[2020-06-17] MEDS: INSULIN ASPART 300 UNIT/3 ML PEN SUBQ SCH ×4 (07:34→20:45)
[2020-06-17] MEDS: MULTIVITAMIN W/MINERALS TABLET PO SCH (08:37)
[2020-06-17] MEDS: DOCUSATE SODIUM 250 MG CAPSULE PO SCH (08:37)
[2020-06-17] MEDS: AZITHROMYCIN 250 MG TABLET PO SCH (08:37)
[2020-06-17] MEDS: guaiFENesin 600 MG TABLET PO SCH (08:38)
[2020-06-17] MEDS: FINASTERIDE 5 MG TABLET PO SCH (08:38)
[2020-06-17] MEDS: SENNA 8.6 MG TABLET PO SCH (08:38)
[2020-06-17] MEDS: METOPROLOL TARTRATE 50 MG TABLET PO SCH (08:39)
[2020-06-17] MEDS: cefTRIAXone 2 GM in SODIUM CHLORIDE 0.9% MINIBAG 100 ML IV SCH (08:40)
[2020-06-17] MEDS: polyethylene glycoL 3350 17 GM PACKET PO SCH (08:44)
[2020-06-17] MEDS: SODIUM CHLORIDE FLUSH 0.9% 10 ML SYRINGE IVP SCH ×2 (08:44→16:17)
[2020-06-17] MEDS ORDERED: ZOLPIDEM 5 MG TABLET PO PRN (09:07)
--- NOTE | 2020-06-17 09:11 | PROVIDER PROGRESS NOTE ---
Assessment/Plan - Problem List (1) Persistent pneumonia Assessment/Plan: Chest x-ray that was done after thoracentesis done yesterday, continued to show L sided infiltrate. He did not make sputum to send for culture. Continue with empiric Zithromax and ceftriaxone. We will repeat a chest x-ray tomorrow (2) Bilateral pleural effusion Assessment/Plan: The pleural effusion on the right is small. Yesterday he underwent thoracentesis of the pleural effusion on the left. 2 L of serosanguineous fluid was removed. He did feel immediate improvement in ability to inhale. Fluid was sent off for studies: The fluid is bloody, the differential is unremarkable, Gram stain was negative, other results are still pending. The pH, glu and LDH values are not back yet to know if this is an exudate or transudate. Cytology for malignant cells will likely take a week before resulted. We will repeat a chest x-ray tomorrow to look for reaccumulation of pleural effusion on the left. Coumadin has been resumed, without bridging. Plan is to allow the INR to become therapeutic slowly and to not overshoot the target INR (of 2.5-3.0), due to the bloody pleural fluid. This was explained to the pt. Exercise oximetry test is planned on day of DEh, for probable new home oxygen order. (3) History of lung cancer Assessment/Plan: His lung cancer was in the right base and he had a lobectomy several years ago. He also had a spot on the L lower lung for which he received radiation at [facility] for 6 weeks. There are now new lung nodule/masses in both apices, and their sizes have increased since February 2020. I discussed with the patient today the preliminary results of the pleural fluid analysis, and that there is a chance this could be fluid from cancer. He remarked that he is admittedly depressed about that. I had left a message with his Oncologist, Dr Joie Cruz, at [facility], several days ago regarding his current hospitalization. She has not called back. I offered to reach out to her today, to give her the update about the pleural fluid, but Mr Ruiz said he is strongly considering changing Oncologists. Since his has been diagnosed with breast cancer and will be seeing an Oncologist at [facility] (Dr Styles [phone]), he would like his Oncology Care to be at [facility]. Our DC RN, Sanjuana was asked to call the above number and ask if they would accept him as a patient. They would accept him, after getting a referral from the PCP, and after they read the notes and results from this hospitalization, he would then be given an appointment, assigned to the proper type of Oncologist. (4) New onset atrial flutter Assessment/Plan: Heart rate is controlled on Metoprolol Tartrate 75 bid (increased from home dose of 50 bid), and on new Cardizem 30 q6h. Will make med doses easier to administer: will stop Cardizem and start Cardizem CD 120 mg once daily every a.m., and will stop Metoprolol Tartrate and start Metoprolol Succ 25 mg every day at noon, to stagger the doses somewhat, due to "soft" BP. Coumadin is being resumed, for stroke prophylaxis. Following INR daily. (5) Cardiomyopathy Assessment/Plan: The Echo this admission showed mildly depressed LVEF of 50%, which is new since 2019, when the EF was 65%. The drop in LVEF is likely due to new RVR from Afib. The Afib was newly diagnosed 1 month ago. Continue meds for rate control. IV Morphine prn dyspnea has been ordered. IV fluids have been stopped, which he got the first few days due to marked dry oral mucosa. (6) S/P aortic valve replacement Assessment/Plan: The valve function is normal, by Echo done this admission. Coumadin was stopped when INR was supratherapeutic at admission, then INR was reversed with vit K, to allow chest puncture for thoracentesis. Coumadin has been resumed yesterday evening, without bridging. Plan is to allow the INR to become therapeutic slowly and to not overshoot his target INR (of 2.5-3.0), due to the finding of bloody pleural fluid. Following INR daily. (7) FUAD on CPAP Assessment/Plan: He uses CPAP at night. (8) Type 2 diabetes mellitus without complication, without long-term current use of insulin Assessment/Plan: Diet was liberalized by the Operating Room Orderly, since his intake is poor. (9) Mild malnutrition Assessment/Plan: As per the evaluation by Operating Room Orderly this hospitalization. 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 (11) Constipation Qualifiers: Constipation type: unspecified constipation type Qualified Code(s): K59.00 - Constipation, unspecified Assessment/Plan: Resolved (12) Supratherapeutic international normalized ratio (INR) Assessment/Plan: Resolved after vit K given for reversal to be able to do thoracentesis (13) Dehydration Assessment/Plan: Resolved. iv fluids stopped yesterday - Current Meds Current Meds: Current Medications Generic Name Dose Route Start Last Admin Trade Name Freq PRN Reason Stop Dose Admin Acetaminophen 650 mg 06/13/20 17:08 06/15/20 22:07 Acetaminophen 325 Mg Tablet PO 650 mg Q4HR PRN Administration Pain 1 to 4 Azithromycin 250 mg 06/16/20 09:00 06/17/20 08:37 Azithromycin 250 Mg Tablet PO 06/18/20 23:00 250 mg DAILY LINDSEY Administration Docusate Sodium 250 - 500 mg 06/14/20 09:00 06/17/20 08:37 Docusate Sodium 250 Mg Capsule PO 250 mg DAILY LINDSEY Administration Finasteride 5 mg 06/14/20 09:00 06/17/20 08:38 Finasteride 5 Mg Tablet PO 5 mg DAILY LINDSEY Administration Guaifenesin 600 mg 06/15/20 09:00 06/17/20 08:38 Guaifenesin 600 Mg Tablet PO 600 mg DAILY LINDSEY Administration Ceftriaxone Sodium 2 gm/ 100 mls @ 200 mls/hr 06/16/20 09:00 06/17/20 08:40 Sodium Chloride IV 200 mls/hr DAILY LINDSEY Administration Insulin Aspart 1 - 9 unit 06/13/20 21:00 06/17/20 07:34 Insulin Aspart 300 Unit/3 Ml Pen SUBQ Not Given 0800,1200,1700,2100 [facility] Protocol Multivitamins/Minerals 1 tab 06/17/20 08:00 06/17/20 08:37 Multivitamin W/Minerals Tablet PO 1 tab DAILYWM LINDSEY Administration Polyethylene Glycol 17 gm 06/13/20 20:02 06/17/20 08:44 Polyethylene Glycol 3350 17 Gm Packet PO 17 gm DAILY LINDSEY Administration Senna 8.6 - 17.2 mg 06/14/20 09:00 06/17/20 08:38 Senna 8.6 Mg Tablet PO 8.6 mg DAILY LINDSEY Administration Sodium Chloride 10 ml 06/13/20 17:08 06/14/20 12:38 Sodium Chloride Flush 0.9% 10 Ml Syringe IVP 10 ml PRN PRN Administration NEEDED PER PROVIDER ORDERS Sodium Chloride 10 ml 06/14/20 01:00 06/17/20 08:44 Sodium Chloride Flush 0.9% 10 Ml Syringe IVP 10 ml 0100,0900,1700 LINDSEY Administration Trazodone HCl 100 mg 06/13/20 21:00 06/16/20 20:55 Trazodone 50 Mg Tablet PO 100 mg QPM LINDSEY Administration Warfarin Sodium 10 mg 06/16/20 16:00 06/16/20 15:46 Warfarin 5 Mg Tablet PO 10 mg 1600 LINDSEY Administration - Lab Result Fish Bone Diagrams: 06/16/20 04:17 06/16/20 04:17 - Additional Planning My Orders: My Active Orders 06/16/20 09:00 Azithromycin [Zithromax] 250 mg PO DAILY cefTRIAXone [Rocephin] 2 gm Sodium Chloride 0.9% Minibag [Normal Saline 0.9% Minibag] 100 ml IV DAILY 06/16/20 Lunch Regular Diet [DIET] 06/16/20 13:17 Miscellaneous Laboratory Order [LAB] Urgent 06/16/20 14:04 CUL,BODY FLUID(AEROBIC) [RM] Routine MISC TEST QUEST REFRIG [REFLAB] Routine MISC TEST QUEST REFRIG [REFLAB] Routine MISC TEST QUEST REFRIG [REFLAB] Routine 06/16/20 14:54 Miscellaneous Laboratory Order [LAB] Urgent 06/16/20 16:00 Warfarin [Coumadin] 10 mg PO 1600 06/17/20 08:00 Multivitamin W/Minerals [Theragran M] 1 tab PO DAILYWM 06/17/20 09:02 Ipratropium Colt [Ipratropium Colt] 2 spray NS TID PRN 06/17/20 09:04 Zolpidem Tartrate [Ambien] 10 mg PO QPM PRN 06/17/20 09:05 Miscellaenous Nursing Order [RC] QSHIFT 06/17/20 12:00 Lactobacillus Acidophilus [Probiotic Acidophilus] 1 each PO DAILY Metoprolol Succinate [Toprol Xl] 25 mg PO 1200 06/17/20 21:00 Latanoprost 0.005% Ophth Drops [Xalatan Ophth Drops] 1 drops EACHEYE QPM 06/18/20 05:00 BMP - BASIC METABOLIC PANEL [CHEM] DAILYLAB CBC - COMP BLD CT W/AUTO DIFF [HEME] DAILYLAB PT WITH INR [COAG] DAILYLAB 06/18/20 09:00 diltiaZEM CD [Cardizem Cd] 120 mg PO DAILY Subjective - Subjective Patient Reports: Feeling Better, Other (Feels depressed that he may have rec urrent lung cancer) Objective Vital Signs: Vital Signs - 24 hr 06/16/20 06/16/20 06/16/20 11:19 11:31 13:25 Temperature 36.4 C L Heart Rate Heart Rate [ 68 71 Brachial] Respiratory 20 21 Rate Blood Pressure 109/61 Blood Pressure 100/62 126/86 H [Right Brachial artery] O2 Saturation 95 100 06/16/20 06/16/20 06/16/20 16:20 17:13 17:30 Temperature 36.5 C Heart Rate Heart Rate [ 71 Brachial] Respiratory 23 21 Rate Blood Pressure 127/62 Blood Pressure 127/62 [Right Brachial artery] O2 Saturation 97 100 06/16/20 06/16/20 06/16/20 19:56 20:56 23:41 Temperature Heart Rate Heart Rate [ 72 Brachial] Respiratory 20 19 Rate Blood Pressure 122/62 110/62 Blood Pressure 122/62 [Right Brachial artery] O2 Saturation 98 99 06/16/20 06/17/20 06/17/20 23:57 05:12 05:47 Temperature 36.7 C 36.7 C Heart Rate 68 Heart Rate [ 68 Brachial] Respiratory 16 16 Rate Blood Pressure 112/60 Blood Pressure 110/62 [Right Brachial artery] O2 Saturation 98 98 06/17/20 06/17/20 06/17/20 06:10 07:45 08:39 Temperature 36.6 C Heart Rate Heart Rate [ 72 Brachial] Respiratory 20 Rate Blood Pressure 106/59 L Blood Pressure 106/59 L [Right Brachial artery] O2 Saturation 1 L 98 06/17/20 09:02 Temperature Heart Rate Heart Rate [ 76 Brachial] Respiratory 32 H Rate Blood Pressure Blood Pressure [Right Brachial artery] O2 Saturation 95 Oxygen O2 Source Room air I&O (Last 24 Hrs): Intake and Output Totals x24h 06/15/20 06/16/20 06/17/20 23:59 23:59 23:59 Intake Total 3083.945 2932.885 1137 Output Total 250 900 325 Balance 2833.945 2032.885 812 General: Alert, Oriented x3 HEENT: Mucous membr. moist/pink Neck: Supple, No JVD Neuro: Alert, Non Focal Cardiovascular: Regular rate, Other (Valve clicks audible) Respiratory: Other (Diminished at both bases up 03/28) Abdomen: Soft Extremities: No clubbing, No edema - Results Results: Laboratory Results WBC 11.5 x10^3/uL (4.8-10.8) H 06/16/20 04:17 RBC 4.38 10^6/uL (4.70-6.10) L 06/16/20 04:17 Hgb 12.0 g/dL (14.0-18.0) L 06/16/20 04:17 Hct 38.4 % (42.0-52.0) L 06/16/20 04:17 MCV 87.7 fL (80.0-94.0) 06/16/20 04:17 MCH 27.4 pg (27.0-31.0) 06/16/20 04:17 MCHC 31.3 g/dL (32.0-36.0) L 06/16/20 04:17 RDW 15.4 % (12.0-15.0) H 06/16/20 04:17 Plt Count 203 10^3/uL (130-450) 06/16/20 04:17 MPV 9.2 fL (7.4-11.4) 06/16/20 04:17 Neut # (Auto) 9.2 10^3/uL (1.5-6.6) H 06/16/20 04:17 Lymph # (Auto) 0.6 10^3/uL (1.5-3.5) L 06/16/20 04:17 [place] # (Auto) 1.0 10^3/uL (0.0-1.0) 06/16/20 04:17 Eos # (Auto) 0.6 10^3/uL (0.0-0.7) 06/16/20 04:17 Baso # (Auto) 0.1 10^3/uL (0.0-0.1) 06/16/20 04:17 Absolute Nucleated RBC 0.00 x10^3/uL 06/16/20 04:17 Nucleated RBC % 0.0 /100WBC 06/16/20 04:17 PT 15.4 secs (9.9-12.6) H 06/17/20 04:26 INR 1.4 (0.8-1.2) H 06/17/20 04:26 Whole Blood INR 1.7 (0.8-1.2) H 06/15/20 18:47 Sodium 136 mmol/L (135-145) 06/16/20 04:17 Potassium 4.3 mmol/L (3.5-5.0) 06/16/20 04:17 Chloride 103 mmol/L (101-111) 06/16/20 04:17 Carbon Dioxide 25 mmol/L (21-32) 06/16/20 04:17 Anion Gap 8.0 (6-13) 06/16/20 04:17 BUN 19 mg/dL (6-20) 06/16/20 04:17 Creatinine 0.7 mg/dL (0.6-1.2) 06/16/20 04:17 Estimated GFR (MDRD) 109 (>89) 06/16/20 04:17 Glucose 126 mg/dL (70-100) H 06/16/20 04:17 POC Whole Bld Glucose 110 mg/dL (70 - 100) H 06/17/20 07:20 Estimat Average Glucose 137 mg/dL (70-100) H 06/14/20 05:02 Hemoglobin A1c % 6.4 % (4.27-6.07) H 06/14/20 05:02 Calcium 7.8 mg/dL (8.5-10.3) L 06/16/20 04:17 Magnesium 1.9 mg/dL (1.7-2.8) 06/16/20 04:17 Total Bilirubin 0.6 mg/dL (0.2-1.0) 06/13/20 14:11 AST 22 IU/L (10-42) 06/13/20 14:11 ALT 36 IU/L (10-60) 06/13/20 14:11 Alkaline Phosphatase 105 IU/L (42-121) 06/13/20 14:11 Troponin I High Sens 41.0 ng/L (2.3-19.7) H* 06/13/20 21:20 B-Natriuretic Peptide 496 pg/mL (5-100) H 06/16/20 04:17 Total Protein 7.7 g/dL (6.7-8.2) 06/13/20 14:11 Albumin 3.4 g/dL (3.2-5.5) 06/13/20 14:11 Globulin 4.3 g/dL (2.1-4.2) H 06/13/20 14:11 Albumin/Globulin Ratio 0.8 (1.0-2.2) L 06/13/20 14:11 Lipase 25 U/L (22-51) 06/13/20 14:11 Fluid Source PLEURAL 06/16/20 13:30 Fluid Color BLOODY 06/16/20 13:30 Fluid Clarity BLOODY 06/16/20 13:30 Fluid WBC 613 /mm^3 06/16/20 13:30 Fluid RBC 76575 /mm^3 06/16/20 13:30 Fluid Neutrophils % 28.0 % 06/16/20 13:30 Fluid Lymphocytes % 28.0 % 06/16/20 13:30 Fluid Monocytes % 19.0 % 06/16/20 13:30 Fluid Eosinophils % 13.0 % 06/16/20 13:30 Fluid Macrophages % 11.0 % 06/16/20 13:30 Fld Mesothelial Cell % 0 % 06/16/20 13:30 Nasal Adenovirus (PCR) NOT DETECTED 06/13/20 15:03 Nasal B. parapertussis DNA (PCR) NOT DETECTED 06/13/20 15:03 Nasal Coronavir 229E PCR NOT DETECTED 06/13/20 15:03 Nasal Coronavir HKU1 PCR NOT DETECTED 06/13/20 15:03 Nasal Coronavir NL63 PCR NOT DETECTED 06/13/20 15:03 Nasal Coronavir OC43 PCR NOT DETECTED 06/13/20 15:03 Nasal Enterovir/Rhinovir PCR NOT DETECTED 06/13/20 15:03 Nasal Influenza B PCR NOT DETECTED 06/13/20 15:03 Nasal Influenza A PCR NOT DETECTED 06/13/20 15:03 Nasal Parainfluen 1 PCR NOT DETECTED 06/13/20 15:03 Nasal Parainfluen 2 PCR NOT DETECTED 06/13/20 15:03 Nasal Parainfluen 3 PCR NOT DETECTED 06/13/20 15:03 Nasal Parainfluen 4 PCR NOT DETECTED 06/13/20 15:03 Nasal RSV (PCR) NOT DETECTED 06/13/20 15:03 Nasal B.pertussis DNA PCR NOT DETECTED 06/13/20 15:03 Nasal C.pneumoniae (PCR) NOT DETECTED 06/13/20 15:03 Dre Human Metapneumo PCR NOT DETECTED 06/13/20 15:03 Nasal M.pneumoniae (PCR) NOT DETECTED 06/13/20 15:03 Nasal SARS-CoV-2 (PCR) NOT DETECTED 06/13/20 15:03
[2020-06-17] MEDS ORDERED: IPRATROPIUM 0.06% NAS PRN (09:13)
[2020-06-17] MEDS: SODIUM CHLORIDE FLUSH 0.9% 10 ML SYRINGE IVP PRN (09:28)
[2020-06-17] MEDS: METOPROLOL SUCCINATE 25 MG TABLET PO SCH (12:01)
[2020-06-17] MEDS: WARFARIN 5 MG TABLET PO SCH (16:17)
[2020-06-17] MEDS: SACCHAROMYCES BOULARDII 250 MG CAPSULE PO SCH (18:07)
[2020-06-17] MEDS: traZODone 50 MG TABLET PO SCH (20:44)
[2020-06-17] MEDS ORDERED: LATANOPROST 0.005% OPHTH DROPS EACHEYE SCH (21:00)
[2020-06-18] MEDS: SODIUM CHLORIDE FLUSH 0.9% 10 ML SYRINGE IVP SCH ×2 (01:15→08:01)
[2020-06-18] MEDS: ACETAMINOPHEN 325 MG TABLET PO PRN (05:51)
[2020-06-18 07:27] LABS: INR 1.9 (0.8-1.2); PT - PROTHROMBIN TIME 20.5 secs (9.9-12.6)
[2020-06-18 07:33] LABS: CALCIUM 8.3 mg/dL (8.5-10.3); CREATININE 0.8 mg/dL (0.6-1.2); POTASSIUM 4.4 mmol/L (3.5-5.0)
[2020-06-18 07:49] LABS: BASOPHILS # (AUTO) 0.1 10^3/uL (0.0-0.1); BASOPHILS % (AUTO) 0.5 %; EOSINOPHILS # (AUTO) 0.7 10^3/uL (0.0-0.7); EOSINOPHILS % (AUTO) 5.1 %; HCT - HEMATOCRIT 36.9 % (42.0-52.0); HGB - HEMOGLOBIN 11.8 g/dL (14.0-18.0); LYMPHOCYTES # (AUTO) 0.6 10^3/uL (1.5-3.5); LYMPHOCYTES % (AUTO) 4.8 %; MEAN CORPUSCULAR HEMOGLOBIN 27.8 pg (27.0-31.0); MEAN CORPUSCULAR VOLUME 86.8 fL (80.0-94.0); MEAN PLATELET VOLUME 9.5 fL (7.4-11.4); MONOCYTES # (AUTO) 0.9 10^3/uL (0.0-1.0); NEUTROPHILS # (AUTO) 10.9 10^3/uL (1.5-6.6); NEUTROPHILS % (AUTO) 82.1 %; PLT - PLATELET COUNT 186 10^3/uL (130-450); RED BLOOD COUNT 4.25 10^6/uL (4.70-6.10); RED CELL DISTRIBUTION WIDTH 15.6 % (12.0-15.0); WHITE BLOOD COUNT 13.3 x10^3/uL (4.8-10.8)
[2020-06-18] MEDS: INSULIN ASPART 300 UNIT/3 ML PEN SUBQ SCH ×2 (07:56→12:19)
[2020-06-18] MEDS: FINASTERIDE 5 MG TABLET PO SCH (07:59)
[2020-06-18] MEDS: polyethylene glycoL 3350 17 GM PACKET PO SCH (07:59)
[2020-06-18] MEDS: guaiFENesin 600 MG TABLET PO SCH (07:59)
[2020-06-18] MEDS: DOCUSATE SODIUM 250 MG CAPSULE PO SCH (07:59)
[2020-06-18] MEDS: SACCHAROMYCES BOULARDII 250 MG CAPSULE PO SCH (07:59)
[2020-06-18] MEDS: AZITHROMYCIN 250 MG TABLET PO SCH (07:59)
[2020-06-18] MEDS: SENNA 8.6 MG TABLET PO SCH (07:59)
[2020-06-18] MEDS: MULTIVITAMIN W/MINERALS TABLET PO SCH (07:59)
[2020-06-18] MEDS: cefTRIAXone 2 GM in SODIUM CHLORIDE 0.9% MINIBAG 100 ML IV SCH (08:00)
--- NOTE | 2020-06-18 08:25 | XRAY Report ---
PROCEDURE: Chest 1 View X-Ray INDICATIONS: Follow-up pneumonia pleural effusion TECHNIQUE: One view of the chest was acquired. COMPARISON: 06/16/2020, 06/13/2020. Correlation is also made with CT 06/14/2020. FINDINGS: Surgical changes and devices: Sternotomy wires are seen. Lungs and pleura: No pneumothorax is seen. There are small bilateral pleural effusions. Interstitial prominence can be seen throughout. Consolidative changes can be seen at the lung bases. Mediastinum: Mediastinal contours appear normal. Heart size is at the upper limits of normal. Calc ification is seen of the aortic arch. Bones and chest wall: No suspicious bony lesions. Age-appropriate degenerative changes are seen. O verlying soft tissues appear unremarkable. IMPRESSION: No pneumothorax is seen. Small bilateral pleural effusions. Mild consolidative changes can be seen at the lung bases. Differential diagnosis includes atelectasis and mild infiltrates. Reviewed by: Jack Brown MD on 06/18/2020 7:24 AM RAFAEL Approved by: Jack Brown MD on 06/18/2020 7:24 AM [facility] Station ID: [id number]
--- NOTE | 2020-06-18 08:29 | Discharge Plan ---
Discharge Plan Problem Reviewed?: Yes Disposition: Home, Self Care Condition: Fair Prescriptions: diltiaZEM CD [Cardizem Cd] 120 mg PO DAILY 30 Days #30 cap.sr Docusate Sodium 250Mg Capsule [Colace 250Mg Capsule] 250 - 500 mg PO DAILY #45 cap guaiFENesin [Mucinex] 600 mg PO DAILY 14 Days #14 tablet Multivitamin W/Minerals [Theragran M] 1 tab PO DAILYWM 30 Days #30 tablet Metoprolol Succinate [Toprol Xl] 25 mg PO 1200 30 Days #30 tablet Diet: Diabetic Activity Restrictions: Activity as Tolerated Shower Restrictions: No Health Concerns: You were hospitalized for managing a persistent left-sided pneumonia and fluid in the pleural sac around the left lung, which needed drainage. The results of the fluid tests are still not all finalized. You have completed a course of antibiotics for treating the pneumonia. I prescribed more Mucinex to help you cough up any phlegm. Please take the Incentive Spirometer with you and use it at home to keep your lungs expanded. You also had a very rapid heart rate (Atrial flutter) which needed new treatment. Please take the medications as written on THIS NEW LIST, since some of the heart medicines have been changed. There is also a new multi-vitamin and medicine for constipation. All new prescriptions were electronically sent to your [facility] pharmacy in [place]. Resume taking your Coumadin as you have normally done. Today the INR was 1.9. Please check your INR level daily for the next 2 - 3 days, and then as per your previous routine. Do not let the INR climb higher than 3.0, since bleeding is then more likely (and the pleural fluid had alot of blood in it already). Please see your Primary Care Provider in the next 1 to 2 weeks. By then all the pleural fluid results should be available, and you can get a new referral to the Oncologist group at [facility], from your primary care provider. A summary of the entire hospitalization is being sent to Dr. Jose A Roth for him to refer to. You were tested to see if a new home oxygen order is needed and it is not needed. Plan of Treatment: As above. Care Goals: Improvement in symptoms and stabilization are the goals. Assessment: The patient understands and is agreeable with the plan. Additional Instructions or Follow Up instructions: If you have new or worsening symptoms, call Dr. Jose A Roth for advice or come to the ER. No Smoking: If you smoke, Please STOP! Call for help. Follow-up with: Jose A Roth MD [Primary Care Provider] -
[2020-06-18] MEDS ORDERED: diltiaZEM CD 120 MG CAPSULE PO SCH (09:00)
--- NOTE | 2020-06-18 12:59 | DISCHARGE SUMMARY ---
Discharge Summary Admit Date: 06/13/20 Discharge Date: 06/18/20 Discharging Provider: Dr Tete Davenport Primary Care Provider: Dr Jose A Roth Code Status: Attempt Resuscitation Condition at Discharge: Fair Discharge Disposition: 01 Home, Self Care - HPI History of Present Illness: From the admission H&P of Dr Marj Reed: Mr. Ruiz who is a 79-year-old white male presented to the emergency room in February 2020 with sharp, left-sided chest pain, nonexertional. He was short of breath with this. [place] a rattling in his left lower lung. Did not have any fevers, chills, calf pain. He does have a past medical history of a right lung cancer where he describes the right middle lobe and right lower lobe being involved. He recovered with radiation therapy After a robotic assisted tumor resection at [facility]. He does not describe chemotherapy. He mentions a "spot on the left lung" that was also treated. In the ER he was mildly febrile at 37.1. Heart rate was normal. And he was 99% on room air. CT of the chest showed hazy groundglass opacity left lingula concerning for atypical pneumonia versus pneumonitis. A masslike consolidation could be pneumonia or tumor and would need follow-up. He also had changes of possible pulmonary fibrosis, cardiomegaly, and an ascending aortic aneurysm. He was treated as pneumonia. He saw his primary care provider and a follow-up Echocardiogram showed him to have a preserved ejection fraction of 60 to 65%, Grade 1 diastolic dysfunction, a well-seated [place] mechanical aortic valve that had been done in 1993. He had a dilated aorta of 5.1 cm. He was treated as pneumonia and sent home. He said that he recovered from that episode of pneumonia and was feeling back to baseline. Baseline for him is taking care of his house, taking care of his . Paying the bills. Driving, cooking. "I do it all". He does not use any durable medical equipment or oxygen. Then in the second week of May he developed recurrence of cough, shortness of breath, chills, fever. It was gradual in onset and got severe enough that he came back to the emergency room June 06. He has been sick for about a week when he was seen. He was mildly tachypneic at 26. He describes that any minimal activity was wiping him out. Just getting up to go to the bathroom required half an hour to an hour of recovery. He could not do anything because of the dyspnea on exertion. Most of the time he was laying down or sitting down because he was so short of breath. He denied pedal edema, chest pain. In the ER, he was mildly hypotensive at 104-109 sytolic. But heart rate was 87 and he was 97 to 98% on room air. Chest x-ray showed small bilateral pleural effusions, patchy left basilar opacity representing atelectasis or pneumonia. He was given Ventolin, Ceftin, and Decadron. His INR was 6.1 from his Coumadin so he was told to hold his Coumadin. For a few days he felt like he was starting to improve and he thought he was back on the mend again. Then he started feeling a rapid heart rate. He could feel it just racing and it made him short of breath again. No fever, no chills, no cough. No edema in his legs. Mild orthopnea. His chest felt full but without chest pain. He went to see his primary care provider today and he was found to be tachycardic and possible SVT. So he was sent to the emergency room and he came here by private vehicle. Heart rate was 150 on this presentation. He was given iv Adenosine which slowed his heart rate down enough for them to see that he was in atrial flutter. He was then given diltiazem 10 mg IV push. His heart rate responded nicely to that in the 90s. As such he has been put back on his metoprolol 50 mg p.o. twice daily. Repeat chest x-ray now showed a left-sided pleural effusion that was increased in size. A right-sided pleural effusion that was stable. Patchy opacities in the left lung base and/or compressive atelectasis still seen. Troponin #1 was 31.4. Troponin #2 is 38. BNP is 388. White cell count is 14.6 while on steroids. INR is 3.8 today. Urinalysis does not have an infection. He is Covid negative. We are now placing him in Observation to make sure that his heart rate stays controlled. - HOSPITAL COURSE Hospital Course: (1) Persistent pneumonia He remained tachypneic and desaturating and was made an Inpatient by his next day. Supplemental oxygen was given. The chest x-ray suggested a left-sided pneumonia under a pleural effusion. He did undergo CT of the chest. This showed a moderate L-sided pleural effusion, L lower lobe infiltrate and small R- sided pleural effusion. He did not make sputum to send for culture. He was started on Mucinex, and Zithromax and Ceftriaxone and completed a course of antibiotics while here. (2) Supratherapeutic international normalized ratio (INR) After the CT chest, and decision to undergo thoracentesis, vit K was given for reversal of INR of 3.2-3.9, to be able to do thoracentesis. After successful removal of pleural fluid, the Coumadin was resumed, without bridging. Plan was to allow the INR to become therapeutic slowly, and to not overshoot the target INR (of 2.5-3.0), due to the bloody pleural fluid. On the day of discharge, the INR was 1.9. He checks his INR at home and knows how to adjust his Coumadin dose, he said. (3) Bilateral pleural effusion The pleural effusion on the right was small. He underwent thoracentesis of the pleural effusion on the left and 2 L of serosanguineous (nearly black) fluid was removed. He did feel immediate improvement in ability to inhale. Incentive Spirometry was ordered. Fluid was sent off for studies: the differential was unremarkable, Gram stain saw no bacteria, and all other results were still pending at the time of discharge, including the pH, glu and LDH values to know if this is an exudate or transudate. Cytology for malignant cells will likely take a week or longer before resulted. The post-tap CXR showed no pneumothorax, and chest x-ray on day of discharge did not show a substantial reaccumulation of pleural effusion on the left. Exercise oximetry test was done on day of discharge and he did not desaturate under 93% on room air during walking. He was advised to see his PCP in 1-2 weeks for addressing the final pleural fluid results. (4) History of lung cancer His lung cancer was in the right base and he had a lobectomy several years ago. He also had a spot on the L lower lung for which he received radiation at [place] for 6 weeks in the past. There are now new lung nodule/masses in both apices, and their sizes have increased since February 2020. I had left a message with his Oncologist, Dr Joie Cruz, at [facility], several days ago regarding his current hospitalization. She did not called back. I discussed with the patient his preliminary results of the pleural fluid analysis, and that there is a chance this could be fluid accumulation from cancer. He remarked that he is admittedly depressed about that. The patient stated that if this was a lung malignancy, he wants to change his Oncologist from Dr Joie Cruz ([phone]) at the [facility] to Dr Mc Styles or someone in Dr Styles's group at [facility] ([phone]) , because his has a new cancer and will be treated at [facility], and for convenience for their travel, he wishes to go to [facility] as well. Our hazardous materials driver called Dr Styles's group and was told that they would accept him, after getting a referral from the PCP. (5) New onset atrial flutter The EMR was reviewed: He went into [facility] 1 month ago, by EKG. During this hospitalization we saw new Atrial flutter. Heart rate was controlled on Metoprolol Tartrate 75 bid (increased from home dose of 50 bid), and on new Cardizem 30 q6h. In order to make medication dosing easier, he was discharged on Cardizem CD 120 mg once daily every a.m. and Metoprolol Succ 25 mg every evening at 5pm, to stagger the doses due to "soft" BP. Coumadin is being resumed, for stroke prophylaxis. (6) Cardiomyopathy The Echo done this admission showed mildly depressed LVEF of 50%, which is new since 2019, when the EF was 65%. The drop in LVEF is likely due to tachycardia from Afib-flutter. IV fluids were stopped, which he got the first few days due to marked dry oral mucosa. (7) S/P aortic valve replacement The valve function is normal, by Echo done this admission. Coumadin was stopped when INR was supratherapeutic at admission, then INR was reversed with vit K, to allow chest puncture for thoracentesis. Coumadin is being resumed (8) FUAD on CPAP He uses CPAP at night. (9) Type 2 diabetes mellitus without complication, without long-term current use of insulin His A1c was 6.4. He was put on a Diabetic diet, which was liberalized by the Animal Groomer to ma regular diet, since his calorie intake was poor. He got ss Insulin coverage. Home Metformin was resumed after discharge. (10) Mild malnutrition As per the evaluation by Animal Groomer this hospitalization: He has had food intake of less than 50 to 75% of normal in the preceding week, has had a 5% weight loss in the past 3 months and 30 pounds loss in the past 6 months. He has reduced fu nctional capacity due to fatigue and shortness of air. 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 (12) Constipation Resolved with "bowel protocol". A new prescription for Colace was ordered at discharge. (13) Dehydration Resolved with 2 days of iv fluids. - ALLERGIES Allergies/Adverse Reactions: Allergies Allergy/AdvReac Type Severity Reaction Status Date / Time No Known Drug Allergies Allergy Verified 06/13/20 13:58 - MEDICATIONS Home Medications: Ambulatory Orders Medication Instructions Recorded Confirmed Finasteride 5 mg PO DAILY 03/20/17 06/14/20 Latanoprost [Xalatan] 1 drops EACHEYE QPM 03/20/17 06/14/20 Metformin HCl 500 mg PO BID 03/20/17 06/14/20 Warfarin Sodium [Coumadin] 10 mg PO DAILY 03/20/17 06/14/20 Zolpidem Tartrate [Ambien] 10 - 20 mg PO QPM PRN 03/20/17 06/14/20 traZODone [Desyrel] 100 - 200 mg PO HS 03/20/17 06/14/20 Ipratropium [place] 2 spray NS TID 06/14/20 06/14/20 Lactobacillus Acidophilus 1 each PO DAILY 06/14/20 06/14/20 [Probiotic Acidophilus] Rosuvastatin Calcium [Crestor] 40 mg PO QPM 06/14/20 06/14/20 Docusate Sodium 250Mg Capsule 250 - 500 mg PO DAILY #45 cap 06/18/20 [Colace 250Mg Capsule] Metoprolol Succinate [Toprol Xl] 25 mg PO 1200 30 Days #30 tablet 06/18/20 Multivitamin W/Minerals [Theragran 1 tab PO DAILYWM 30 Days #30 tablet 06/18/20 M] diltiaZEM CD [Cardizem Cd] 120 mg PO DAILY 30 Days #30 cap.sr 06/18/20 guaiFENesin [Mucinex] 600 mg PO DAILY 14 Days #14 tablet 06/18/20 - PHYSICAL EXAM AT DISCHARGE General Appearance: positive: No acute distress, Alert, Other (Male pattern baldness) Eyes Bilateral: positive: Normal inspection, EOMI ENT: positive: No signs of dehydration, Other (Hoarse) Neck: positive: Nml inspection, No JVD Respiratory: positive: Other (Diminished breath sounds at both bases posteriorly, no wheezing or rhonchi. Pt takes shallow freq breaths) Cardiovascular: positive: Irregularly irregular, Other ([place] valve clicks) Abdomen: positive: Non-tender, No distention Skin: positive: Warm, Dry Extremities: positive: Non-tender, No pedal edema Neurologic/Psychiatric: positive: Oriented x3, Motor nml - LABS Result Diagrams: 06/18/20 06:50 06/18/20 06:50 - DIAGNOSTIC IMAGING Diagnostic Imaging Results: Final report reviewed - FOLLOW UP Follow Up: See PCP in 1-2 weeks for hospital follow-up and for probable referral to new Oncologist at [facility]. - TIME SPENT Time Spent in Discharge (Minutes): 60
[2020-06-18] MEDS: METOPROLOL SUCCINATE 25 MG TABLET PO SCH (13:09)
[2020-06-18 13:10] VITALS: BP 116/61
== END 2020-06-18 13:50 | disposition home or self-care (01) | DRG 194 ==
LOC: ED 13:54 → MS2 17:08 → OBSVTOIN 06-14 12:08
PROVIDERS: ADMIT Internal Medicine; ATTEND Internal Medicine
PROC: 0W9B3ZZ Drainage of Left Pleural Cavity, Percutaneous Approach (ICD-10-PCS; principal; 2020-06-16)
DX: J18.9 Pneumonia, unspecified organism (principal); J90 Pleural effusion, not elsewhere classified; I48.92 Unspecified atrial flutter; I42.9 Cardiomyopathy, unspecified; E44.1 Mild protein-calorie malnutrition; R79.1 Abnormal coagulation profile; Z79.01 Long term (current) use of anticoagulants; Z95.2 Presence of prosthetic heart valve; Z85.118 Personal history of other malignant neoplasm of bronchus and lung; Z20.822 Contact with and (suspected) exposure to COVID-19; R91.8 Other nonspecific abnormal finding of lung field; Z92.3 Personal history of irradiation; I48.91 Unspecified atrial fibrillation; G47.33 Obstructive sleep apnea (adult) (pediatric); E11.9 Type 2 diabetes mellitus without complications; Z79.84 Long term (current) use of oral hypoglycemic drugs; R53.83 Other fatigue; I71.2 Thoracic aortic aneurysm, without rupture; K59.00 Constipation, unspecified; E86.0 Dehydration; Z87.891 Personal history of nicotine dependence; Z68.29 Body mass index [BMI] 29.0-29.9, adult
CPT/HCPCS: 32555; 36415; 71045; 71275; 80048; 80053; 81599; 83036; 83690; 83735; 83880; 84132; 84484; 85025; 85610; 87070; 87205; 87631; 89051; 93005; 93306; 94761; 96365; 96375; 96376; 97162; 99284; 99285; A9270; G0378; J0153; J7040; Q9967; 0202U

== ENCOUNTER 2020-07-11 14:07 | Outpatient (CLI) | payer MEDICARE, OTHER | END 2020-07-11 14:08 | disposition short-term general hospital (02) | LOC: EMS 14:07 | DX: R53.1 Weakness (principal); R06.02 Shortness of breath | CPT/HCPCS: A0425; A0429 ==